=== PATIENT | female | born 1955 | race Caucasian/White ===

== ENCOUNTER → 2019-11-11 16:13 | Outpatient (CLI) | payer BC, SELFPAY ==
--- NOTE | ~2019-11-11 | MM_ITS ---
EXAMINATION: MM screening [facility] BI w debbie HISTORY: Screening mammogram TECHNIQUE: Craniocaudal and mediolateral oblique 3-D tomosynthesis images were obtained and synthetic 2-D images were generated. CAD analysis was submitted and interpreted. COMPARISON: No prior mammogram is available for comparison at this institution. BREAST PARENCHYMAL COMPOSITION: There are scattered areas of fibroglandular density. FINDINGS: There is no evidence of suspicious mass, calcification, or architectural distortion to sugg est malignancy in either breast. There has been no suspicious interval change. IMPRESSION: 1. No mammographic evidence of malignancy. 2. Recommend routine screening mammography in one year. BI-RADS Category 1: Negative Reviewed, dictated and finalized at location A. 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
== END ==
PROVIDERS: PCP Family Medicine
DX: Z12.31 Encounter for screening mammogram for malignant neoplasm of breast (principal)
CPT/HCPCS: 77063; 77067

== ENCOUNTER 2020-02-18 10:50 | Outpatient (CLI) | payer BC, SELFPAY ==
--- NOTE | ~2020-02-18 | CT_ITS ---
EXAMINATION:CT chest wo con DATE: 02/18/2020 11:51 INDICATION: Solitary pulmonary nodule. TECHNIQUE: Computed tomography (CT) of the chest was performed without intravenous contrast. Automate d exposure control and iterative reconstruction technique were employed. The dose-length product (DLP ) was 242.59 mGy-cm. COMPARISON: Chest CT 07/21/2019 FINDINGS: There is mild atelectasis bilaterally. There is mild emphysema. There are a few scattered 2 -3 mm nodules in the lungs. There is a 4 mm nodule in right middle lobe. No pleural effusion. The hea rt size is normal. There are coronary artery calcifications. There is a 4.2 cm fusiform aneurysm of a scending aorta. There is a moderate-sized sliding hiatal hernia. There are changes of anterior fusion procedure in cervical spine. There is levoscoliosis of upper thoracic spine and dextroscoliosis of l ower thoracic spine. There is severe thoracic spondylosis. IMPRESSION: 1. Stable small pulmonary nodules, consistent with granulomatous disease. 2. Mild emphysema. 3. Stable 4.2 cm fusiform aneurysm of ascending aorta. 4. Moderate-sized sliding hiatal hernia. Reviewed, dictated and finalized at location A.
== END 2020-02-18 10:51 | disposition home or self-care (01) ==
LOC: ANHIMG 10:51
PROVIDERS: PCP Family Medicine; Visit Provider Nurse Practitioner Family
DX: J43.9 Emphysema, unspecified (principal); K44.9 Diaphragmatic hernia without obstruction or gangrene; I71.4 Abdominal aortic aneurysm, without rupture; R91.8 Other nonspecific abnormal finding of lung field
CPT/HCPCS: 71250

== ENCOUNTER 2020-04-05 00:58 | Outpatient (CLI) | payer BC, SELFPAY ==
[2020-04-05 19:19] LABS: SARS-CoV-2 RNA PCR Negative
== END 2020-04-05 00:59 | disposition home or self-care (01) ==
LOC: ANHCOVIDDT 00:58
PROVIDERS: PCP Family Medicine; Visit Provider Internal Medicine Gastroenterology
DX: Z01.818 Encounter for other preprocedural examination (principal); Z11.59 Encounter for screening for other viral diseases
CPT/HCPCS: 87635; C9803; U0003

== ENCOUNTER 2020-04-07 02:19 | Day surgery (SDC) | payer BC, SELFPAY ==
[2020-03-28 13:48] VITALS: BMI 29.5
--- NOTE | 2020-04-07 07:47 | WPDANESEPPF ---
Anes - Initial Pre Proc Eval Procedure: Operation Date: 04/07/20 09:00 Proposed Procedures p Esophagogastroduodenoscopy - Juan Martinez MD Date/Time: 04/07/20 07:47 Surgeon: Juan Martinez MD Pre Op Diagnosis: Stricture Patient Data Age: 64 Gender: F Height: 1.68 m Weight: 83 kg Allergies Allergy/AdvReac Type Severity Reaction Status Date / Time gemifloxacin Allergy Severe unknown Verified 04/07/20 08:15 ciprofloxacin Allergy Unknown unknown Verified 04/07/20 08:15 doxycycline Allergy Unknown unknown Verified 04/07/20 08:15 fluticasone Allergy Unknown Tongue Verified 04/07/20 08:15 swelling glatiramer (copolymer 1) Allergy Unknown unknown Verified 04/07/20 08:15 omeprazole Allergy Unknown THROAT Verified 04/07/20 08:15 SWELLING, ARM PAIN penicillin G Allergy Unknown THROAT Verified 04/07/20 08:15 SWELLING Penicillins Allergy Unknown unknown Verified 04/07/20 08:15 Sulfa (Sulfonamide Allergy Unknown unknown Verified 04/07/20 08:15 Antibiotics) loratadine AdvReac Unknown RASH/ITCHING Verified 04/07/20 08:15 ON HEAD AFTER TAKING MULTIPLE DAYS Home Medications Medication Instructions Recorded Confirmed Type cholecalciferol (vitamin D3) 125 5,000 unit PO DAILY 08/03/19 04/07/20 History mcg (5,000 unit) tablet interferon beta-1a 30 mcg/0.5 mL 0.5 ml IM WEEKLY 08/03/19 03/28/20 History intramuscular pen kit vitamin B complex [B 1 tablet PO DAILY 03/28/20 03/28/20 History Complex-Vitamin B12] Patient hx anesthesia problems: none Family hx anesthesia problems: none PMFSH Past Medical History Medical History (Updated 04/07/20 @ 07:49 by Bg Goodrich MD) Aneurysm 4.2 cm fusiform aneurysm of ascending aorta Arthritis Emphysema of lung mild emphysema Essential (primary) hypertension Multiple sclerosis not affecting current episode of care (~2012) Obstructive sleep apnea (~1989) Surgical History Surgical History (Updated 08/03/19 @ 17:34 by Ml Meeks, ) History of mandibular surgery (~1989) Social History Social History (Updated 02/28/20 @ 08:41 by Lidya Lauren [facility]) Smoking packs per day: 1 Smoking cigarettes per day: 20.0 Years smoked: 48 Smoking pack-years: 48.00 Smoking status: Current every day smoker Tobacco type: cigarettes Smoking end date: 09/08/96 Alcohol intake: current Additional occupation/education comments: [employer] Final PreProcedure Day of Procedure 04/07/20 07:47 Patient weight: obese Heart: regular rate and rhythm Lungs: clear to auscultation and normal air movement Airway: Mallampati scale class II Neurological: alert and oriented Last oral intake: >/= 8 hours ASA classification: III Emergent: no Anesthetic plan: proceed Anesthesia type and monitoring: general GIVS Informed Consent: The patient's anesthetic plan and its attendant risks and benefits were discussed with the patient/family/POA. Questions were solicited and answers provided to the satisfaction of the patient/family/POA.
[2020-04-07 08:16] VITALS: BP 136/67; PULSE 74; RESP 18; TEMP 36.7; O2SAT 99
--- NOTE | 2020-04-07 08:28 | PM.HPGS ---
History of Present Illness History of Present Illness Consent: Risks, benefits, and alternatives have been discussed and questions answered. Patient agrees to proceed with procedure. Chief complaint: Stricture Narrative: Jamila Monzon is a 64 year old female with Funk's esophagus. She also has a history of an esophageal stricture PMFSH Past Medical History Medical History Aneurysm 4.2 cm fusiform aneurysm of ascending aorta Arthritis Emphysema of lung mild emphysema Essential (primary) hypertension Multiple sclerosis not affecting current episode of care (~2012) Obstructive sleep apnea (~1989) Surgical History Surgical History History of mandibular surgery (~1989) Family History Family History Mother Family history of anemia Hypertension Family history of glaucoma Father Family history of malignant neoplasm of kidney Patient's father is Social History Social History Smoking packs per day: 1 Smoking cigarettes per day: 20.0 Years smoked: 48 Smoking pack-years: 48.00 Smoking status: Current every day smoker Tobacco type: cigarettes Smoking end date: 09/08/96 Alcohol intake: current 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 Home Medications and Allergies Home Medications Medication Instructions Recorded Confirmed Type cholecalciferol (vitamin D3) 125 5,000 unit PO DAILY 08/03/19 04/07/20 History mcg (5,000 unit) tablet interferon beta-1a 30 mcg/0.5 mL 0.5 ml IM WEEKLY 08/03/19 03/28/20 History intramuscular pen kit vitamin B complex [B 1 tablet PO DAILY 03/28/20 03/28/20 History Complex-Vitamin B12] Allergies Allergy/AdvReac Type Severity Reaction Status Date / Time gemifloxacin Allergy Severe unknown Verified 04/07/20 08:15 ciprofloxacin Allergy Unknown unknown Verified 04/07/20 08:15 doxycycline Allergy Unknown unknown Verified 04/07/20 08:15 fluticasone Allergy Unknown Tongue Verified 04/07/20 08:15 swelling glatiramer (copolymer 1) Allergy Unknown unknown Verified 04/07/20 08:15 omeprazole Allergy Unknown THROAT Verified 04/07/20 08:15 SWELLING, ARM PAIN penicillin G Allergy Unknown THROAT Verified 04/07/20 08:15 SWELLING Penicillins Allergy Unknown unknown Verified 04/07/20 08:15 Sulfa (Sulfonamide Allergy Unknown unknown Verified 04/07/20 08:15 Antibiotics) loratadine AdvReac Unknown RASH/ITCHING Verified 04/07/20 08:15 ON HEAD AFTER TAKING MULTIPLE DAYS Vital Signs Vital Signs - 24 hr 04/07/20 08:16 Temperature 36.7 C Pulse Rate 74 Respiratory Rate 18 Blood Pressure 136/67 Pulse Oximetry 99 Exam Const: General: alert Orientation/consciousness: patient oriented x3 Resp: Auscultation: clear to auscultation bilaterally Cardio: Rhythm: regular rhythm GI: GI Palp: Yes Soft to palpation and No Tenderness to palpation present (GI) Neuro: General: patient oriented x3 Assessment and Plan Assessment and plan (1) Funk's esophagus: Code(s): K22.70 - Funk's esophagus without dysplasia Status: Acute Assessment and Plan: EGD with possible biopsy or dilatation or cautery.
[2020-04-07] MEDS: LACTATED RINGERS 1,000 ML 150 ML IV CONT (08:30)
[2020-04-07 09:08] VITALS: BP 90/49; PULSE 72; RESP 14; O2SAT 98
[2020-04-07 09:18] VITALS: BP 88/50; PULSE 73; RESP 16; O2SAT 98
[2020-04-07 09:24] VITALS: BP 117/77; PULSE 72; RESP 18; O2SAT 98
== END 2020-04-07 09:44 | disposition home or self-care (01) ==
PROVIDERS: PCP Family Medicine; Visit Provider Internal Medicine Gastroenterology
PROC: 0DJ08ZZ Inspection of Upper Intestinal Tract, Via Natural or Artificial Opening Endoscopic (ICD-10-PCS; CPT 43235; principal; 2020-04-07 09:00)
DX: K22.70 Barrett's esophagus without dysplasia (principal); K22.2 Esophageal obstruction; K20.9 Esophagitis, unspecified; K44.9 Diaphragmatic hernia without obstruction or gangrene; I10 Essential (primary) hypertension; I71.4 Abdominal aortic aneurysm, without rupture; G35 Multiple sclerosis; G47.33 Obstructive sleep apnea (adult) (pediatric); J43.9 Emphysema, unspecified; F17.210 Nicotine dependence, cigarettes, uncomplicated; E66.9 Obesity, unspecified; Z68.30 Body mass index [BMI] 30.0-30.9, adult
CPT/HCPCS: 43249; 88305; C1726; J2704; J7120

== ENCOUNTER 2020-04-13 15:52 | Outpatient (CLI) | payer BC, SELFPAY ==
[2020-04-13 16:31] LABS: Basophils Absolute Auto 0.1 K/mm3 (0.0-0.1); Basophils Percent Auto 0.8 % (0.2-1.2); Eosinophils Absolute Auto 0.3 K/mm3 (0-0.3); Eosinophils Percent Auto 2.8 % (0-4.4); Hematocrit 41.8 % (37.0-47.0); Hemoglobin 13.7 g/dL (12.0-15.0); Immature Granulocyte Absolute 0.02 K/mm3 (0.00-0.031); Immature Granulocyte Percent A 0.2 % (0-0.5); Lymphocytes Absolute Auto 3.79 K/mm3 (0.9-3.2); Lymphocytes Percent Auto 41.5 % (18.3-44.2); Mean Corpuscular HGB Conc 32.8 g/dl (32-36); Mean Corpuscular Hemoglobin 29.3 pg (26-34); Mean Corpuscular Volume 89.3 fl (80-100); Mean Platelet Volume 9.4 fl (7.4-10.4); Monocytes Percent Auto 11.3 % (2.6-8.5); Neutrophils Percent Auto 43.4 % (45.5-73.1); Platelet Count Result 396 k/mm3 (150-375); Red Blood Count 4.68 M/mm3 (4.2-5.4); Red Cell Distribution Width 13.5 % (11.5-14.5); White Blood Count 9.1 K/mm3 (4.5-10.0)
[2020-04-13 16:44] LABS: Alanine Aminotransferase 21 U/L (4-35); Albumin Level 4.3 g/dL (3.5-5.1); Alkaline Phosphatase 68 U/L (38-126); Anion Gap 12.1 mmol/L (7-16); Aspartate Amino Transferase 24 U/L (14-36); Bilirubin,Total 0.1 mg/dL (0.2-1.3); Blood Urea Nitrogen 11 mg/dL (7-17); Calcium 9.5 mg/dL (8.4-10.2); Carbon Dioxide 28 mmol/L (22-30); Chloride 102 mmol/L (98-107); Estimated Glomerular Filt Rate > 60; Glucose 96 mg/dL (65-105); Potassium 4.1 mmol/L (3.4-5.0); Sodium 138 mmol/L (137-145)
== END 2020-04-13 15:53 | disposition home or self-care (01) ==
PROVIDERS: PCP Family Medicine
DX: G35 Multiple sclerosis (principal)
CPT/HCPCS: 36415; 80053; 85025

== ENCOUNTER 2020-07-22 10:33 | Outpatient (CLI) | payer BC, SELFPAY ==
[2020-07-22 11:04] LABS: Alanine Aminotransferase 22 U/L (4-35); Albumin Level 4.3 g/dL (3.5-5.1); Alkaline Phosphatase 64 U/L (38-126); Anion Gap 7 mmol/L (8-16); Aspartate Amino Transferase 26 U/L (14-36); Bilirubin,Total 0.4 mg/dL (0.2-1.3); Blood Urea Nitrogen 12 mg/dL (7-17); Calcium 9.5 mg/dL (8.4-10.2); Carbon Dioxide 26 mmol/L (22-30); Chloride 104 mmol/L (98-107); Cholesterol 214 mg/dL (0-200); Estimated Glomerular Filt Rate > 60; Glucose 93 mg/dL (65-105); HDL Direct 52 mg/dL; Potassium 4.2 mmol/L (3.4-5.0); Sodium 137 mmol/L (137-145); Triglycerides 135 mg/dL (<150)
[2020-07-22 11:15] LABS: LDL Cholesterol Direct 130 mg/dL
[2020-07-22 11:59] LABS: Thyroid Stimulating Hormone Reflex 0.677 uIU/mL (0.465-4.68)
== END 2020-07-22 10:34 | disposition home or self-care (01) ==
LOC: ANHLAB 10:35
PROVIDERS: PCP Family Medicine; Visit Provider Family Medicine
DX: E78.5 Hyperlipidemia, unspecified (principal); Z00.00 Encounter for general adult medical examination without abnormal findings
CPT/HCPCS: 36415; 80053; 80061; 84443

== ENCOUNTER → 2020-12-04 07:29 | Outpatient (CLI) | payer BC, SELFPAY ==
--- NOTE | ~2020-12-04 | MM_ITS ---
EXAMINATION: MM screening [facility] BI w debbie HISTORY: Screening mammogram TECHNIQUE: Craniocaudal and mediolateral oblique 3-D tomosynthesis images were obtained and synthetic 2-D images were generated. CAD analysis was submitted and interpreted. COMPARISON: 11/11/2019, 10/12/2018, 09/29/2017 BREAST PARENCHYMAL COMPOSITION: There are scattered areas of fibroglandular density. FINDINGS: There is no evidence of suspicious mass, calcification, or architectural distortion to sugg est malignancy in either breast. There has been no suspicious interval change. IMPRESSION: 1. No mammographic evidence of malignancy. 2. Recommend routine screening mammography in one year. BI-RADS Category 1: Negative Reviewed, dictated and finalized at location A.
== END ==
PROVIDERS: PCP Family Medicine; Visit Provider Obstetrics & Gynecology
DX: Z12.31 Encounter for screening mammogram for malignant neoplasm of breast (principal)
CPT/HCPCS: 77063; 77067

== ENCOUNTER 2021-02-19 11:01 | Outpatient (CLI) | payer BC, SELFPAY ==
--- NOTE | ~2021-02-19 | US_ITS ---
EXAMINATION:US venous doppler LE RT INDICATION:Right lower leg edema TECHNIQUE: Multiple grayscale, color flow and Doppler images of the right lower extremity deep venous systems were obtained and reviewed. COMPARISON:No prior studies for comparison. FINDINGS: The common femoral, superficial femoral and popliteal veins demonstrate normal respiratory variation, augmentation and compressibility. Color flow is also seen within the posterior tibial, pe roneal, greater saphenous and profunda veins. IMPRESSION: 1: No lower extremity deep venous thrombosis. Reviewed, dictated and finalized at location A.
== END 2021-02-19 11:02 | disposition home or self-care (01) ==
LOC: ANHIMG 11:07
PROVIDERS: PCP Family Medicine
DX: M60.861 Other myositis, right lower leg (principal); R60.0 Localized edema; M79.661 Pain in right lower leg
CPT/HCPCS: 93971

== ENCOUNTER 2021-05-04 10:07 | Outpatient (CLI) | payer BC, SELFPAY ==
--- NOTE | 2021-05-04 16:21 | WPDPFTINT ---
PFT Procedure Performed PFT Procedure Performed Spirometry with Pre/Post Bronchodilator Plethysmography (Lung Vol) Diffusing Cap (DLCO) Flow Vol Loop PFT Interpretation This is a pulmonary function test with pre and post-bronchodilator spirometry, plethysmography and diffusing capacity. The test was performed and results interpreted in accordance with the 2019 and 2005 ATS/ERS Task Force guidelines respectively using the Global Lung Function Initiative-2012 reference equations. Patient demonstrated good effort and cooperation. Reproducibility criteria were met. The quality of the pre bronchodilator spirometry maneuver was Grade A and post bronchodilator spirometry maneuver was Grade A. Findings: Spirometry: There is decreased maximal expiratory airflow at all lung volumes concave expiratory flow tracing. The pre bronchodilator FVC is 2.77 L, 85% predicted. The pre bronchodilator FEV1 is 1.71 L, 67% predicted. The FEV1: FVC ratio 62%. The post bronchodilator FVC is 2.66 L, representing a 4% decrease. The post bronchodilator FEV1 is 1.74 L, representing a 2% increase. Plethysmography: The total lung capacity is 5.57 L, 104% predicted. The functional residual capacity is 3.30 L, 108% predicted. The residual volume is 2.79 L, 128% predicted. Diffusing capacity: The absolute diffusion capacity is 18.6, 85% predicted. The diffusing capacity corrected for alveolar volume is 4.17, 97% predicted. Impression: There is a moderate obstructive abnormality without significant improvement after inhaling a single dose of albuterol. The lung volumes are normal. The diffusing capacity is normal. There are no prior studies for comparison
== END 2021-05-04 10:08 | disposition home or self-care (01) ==
PROVIDERS: PCP Family Medicine; Visit Provider Nurse Practitioner Family
DX: R06.02 Shortness of breath (principal); R94.2 Abnormal results of pulmonary function studies
CPT/HCPCS: 94060; 94726; 94729

== ENCOUNTER → 2021-06-15 03:12 | Outpatient (CLI) | payer BC, SELFPAY ==
[2021-06-15 17:41] LABS: SARS-CoV-2 RNA PCR Negative
== END ==
PROVIDERS: PCP Family Medicine; Visit Provider Internal Medicine Gastroenterology
DX: Z01.812 Encounter for preprocedural laboratory examination (principal); Z20.822 Contact with and (suspected) exposure to COVID-19
CPT/HCPCS: C9803; U0003; U0005

== ENCOUNTER 2021-06-18 01:22 | Day surgery (SDC) | payer BC, SELFPAY ==
[2021-06-11 10:49] VITALS: BMI 28.7
--- NOTE | 2021-06-18 11:32 | PM.HPGS ---
History of Present Illness History of Present Illness Consent: Risks, benefits, and alternatives have been discussed and questions answered. Patient agrees to proceed with procedure. Chief complaint: neoplasm screening Narrative: Jamila Monzon is a 65 year old female referred for colon cancer screening Review of Systems Review of Systems: All systems reviewed & are unremarkable except as noted in HPI and below PMFSH Past Medical History Medical History Aneurysm 4.2 cm fusiform aneurysm of ascending aorta Arthritis Dyslipidemia Emphysema of lung mild emphysema Environmental allergies History of esophageal stricture Multiple sclerosis not affecting current episode of care (~2012) Obstructive sleep apnea (~1989) Vertigo Surgical History Surgical History History of carpal tunnel surgery History of cervical spinal surgery C4,5,6 fusion History of esophageal dilatation 04/27 History of mandibular surgery (~1989) Family History Family History Mother Family history of anemia Hypertension Family history of glaucoma Father Family history of malignant neoplasm of kidney Patient's father is Social History Social History Smoking packs per day: 1 Smoking cigarettes per day: 20.0 Years smoked: 22 Smoking pack-years: 22.00 Smoking status: Former smoker Tobacco type: cigarettes Smoking end date: 09/08/96 Alcohol intake: current Alcohol use details: Very little to none Substance use: never Substance use type: does not use Living arrangements: with family Additional living arrangements comments: lives with spouse Additional occupation/education comments: [employer] Gender identity (if verbalized by the patient): Female Spiritual care concerns: No Meds Home Medications and Allergies Home Medications Medication Instructions Recorded Confirmed Type cholecalciferol (vitamin D3) 125 5,000 unit PO DAILY 08/03/19 06/11/21 History mcg (5,000 unit) tablet interferon beta-1a 30 mcg/0.5 mL 0.5 ml IM WEEKLY 08/03/19 02/25/21 History intramuscular pen kit zinc 50 mg tablet 50 mg PO DAILY 07/19/20 06/11/21 History ascorbate calcium (vitamin C) 500 500 mg PO DAILY 11/23/20 06/11/21 History mg tablet coenzyme Q10 [H2Q CoQ10] PO 11/23/20 02/25/21 History magnesium-potassium 40 mg-40 mg 40 cap PO DAILY 11/23/20 06/11/21 History capsule multivitamin 1 tablet PO DAILY 11/23/20 06/11/21 History vitamin E acetate PO 11/23/20 02/25/21 History loratadine 10 mg tablet 10 mg PO DAILY 02/15/21 06/11/21 History metoprolol succinate 25 mg 25 mg PO DAILY 02/15/21 06/11/21 History tablet,extended release 24 hr rosuvastatin 10 mg tablet 10 mg PO DAILY #30 tablet 03/20/21 06/11/21 Rx Allergies Allergy/AdvReac Type Severity Reaction Status Date / Time gemifloxacin Allergy Severe unknown Verified 06/18/21 11:58 ciprofloxacin Allergy Unknown unknown Verified 06/18/21 11:58 doxycycline Allergy Unknown unknown Verified 06/18/21 11:58 fluticasone Allergy Unknown Tongue Verified 06/18/21 11:58 swelling glatiramer (copolymer 1) Allergy Unknown unknown Verified 06/18/21 11:58 omeprazole Allergy Unknown THROAT Verified 06/18/21 11:58 SWELLING, ARM PAIN penicillin G Allergy Unknown THROAT Verified 06/18/21 11:58 SWELLING Penicillins Allergy Unknown unknown Verified 06/18/21 11:58 Sulfa (Sulfonamide Allergy Unknown unknown Verified 06/18/21 11:58 Antibiotics) loratadine AdvReac Unknown RASH/ITCHING Verified 06/18/21 11:58 ON HEAD AFTER TAKING MULTIPLE DAYS azelastine AdvReac throat Verified 06/18/21 11:58 swell Exam Resp: Auscultation: clear to auscultation bilaterally Cardio: Rate: regular ra
[2021-06-18 11:59] VITALS: BP 118/69; PULSE 81; RESP 18; TEMP 36.7; O2SAT 98
[2021-06-18] MEDS: LACTATED RINGERS 1,000 ML 150 ML IV CONT (12:07)
--- NOTE | 2021-06-18 12:37 | WPDANESEPPF ---
Anes - Initial Pre Proc Eval Procedure: Operation Date: 06/18/21 13:15 Proposed Procedures p Screening Colonoscopy - Juan Martinez MD Date/Time: 06/18/21 12:37 Surgeon: Juan Martinez MD Pre Op Diagnosis: neoplasm screening Patient Data Age: 65 Gender: F Height: 1.69 m Weight: 83.4 kg Last Vital Signs Temp 36.7 C 06/18/21 11:59 Pulse 81 06/18/21 11:59 Resp 18 06/18/21 11:59 BP 118/69 06/18/21 11:59 Pulse Ox 98 06/18/21 11:59 Allergies Allergy/AdvReac Type Severity Reaction Status Date / Time gemifloxacin Allergy Severe unknown Verified 06/18/21 11:58 ciprofloxacin Allergy Unknown unknown Verified 06/18/21 11:58 doxycycline Allergy Unknown unknown Verified 06/18/21 11:58 fluticasone Allergy Unknown Tongue Verified 06/18/21 11:58 swelling glatiramer (copolymer 1) Allergy Unknown unknown Verified 06/18/21 11:58 omeprazole Allergy Unknown THROAT Verified 06/18/21 11:58 SWELLING, ARM PAIN penicillin G Allergy Unknown THROAT Verified 06/18/21 11:58 SWELLING Penicillins Allergy Unknown unknown Verified 06/18/21 11:58 Sulfa (Sulfonamide Allergy Unknown unknown Verified 06/18/21 11:58 Antibiotics) loratadine AdvReac Unknown RASH/ITCHING Verified 06/18/21 11:58 ON HEAD AFTER TAKING MULTIPLE DAYS azelastine AdvReac throat Verified 06/18/21 11:58 swell Home Medications Medication Instructions Recorded Confirmed Type cholecalciferol (vitamin D3) 125 5,000 unit PO DAILY 08/03/19 06/11/21 History mcg (5,000 unit) tablet interferon beta-1a 30 mcg/0.5 mL 0.5 ml IM WEEKLY 08/03/19 06/18/21 History intramuscular pen kit zinc 50 mg tablet 50 mg PO DAILY 07/19/20 06/11/21 History ascorbate calcium (vitamin C) 500 500 mg PO DAILY 11/23/20 06/11/21 History mg tablet coenzyme Q10 [H2Q CoQ10] 1 tab-cap PO DAILY 11/23/20 06/18/21 History magnesium-potassium 40 mg-40 mg 40 cap PO DAILY 11/23/20 06/11/21 History capsule multivitamin 1 tablet PO DAILY 11/23/20 06/11/21 History vitamin E acetate PO 11/23/20 02/25/21 History loratadine 10 mg tablet 10 mg PO DAILY 02/15/21 06/11/21 History metoprolol succinate 25 mg 25 mg PO DAILY 02/15/21 06/11/21 History tablet,extended release 24 hr rosuvastatin 10 mg tablet 10 mg PO DAILY #30 tablet 03/20/21 06/11/21 Rx Patient hx anesthesia problems: none Family hx anesthesia problems: none Results Review: All pre-operative results and documents have been reviewed as part of the pre-operative evaluation. [facility] Past Medical History Medical History Aneurysm 4.2 cm fusiform aneurysm of ascending aorta Arthritis Dyslipidemia Emphysema of lung mild emphysema Environmental allergies History of esophageal stricture Multiple sclerosis not affecting current episode of care (~2012) Obstructive sleep apnea (~1989) Vertigo Surgical History Surgical History History of carpal tunnel surgery History of cervical spinal surgery C4,5,6 fusion History of esophageal dilatation 04/27 History of mandibular surgery (~1989) Family History Family History Mother Family history of anemia Hypertension Family history of glaucoma Father Family history of malignant neoplasm of kidney Patient's father is Social History Social History Smoking packs per day: 1 Smoking cigarettes per day: 20.0 Years smoked: 22 Smoking pack-years: 22.00 Smoking status: Former smoker Tobacco type: cigarettes Smoking end date: 09/08/96 Alcohol intake: current Alcohol use details: Very little to none Substance use: never Substance use type: does not use Living arrangements: with family Additional living arrangements comments: lives with spouse Jimo
[2021-06-18 13:09] VITALS: BP 99/63; PULSE 73; RESP 21; O2SAT 97
[2021-06-18 13:19] VITALS: BP 103/69; PULSE 70; RESP 20; O2SAT 96
[2021-06-18 13:29] VITALS: BP 131/85; PULSE 74; RESP 22; O2SAT 99
== END 2021-06-18 13:45 | disposition home or self-care (01) ==
PROVIDERS: PCP Family Medicine; Visit Provider Internal Medicine Gastroenterology
PROC: 0DJD8ZZ Inspection of Lower Intestinal Tract, Via Natural or Artificial Opening Endoscopic (ICD-10-PCS; CPT 45378; principal; 2021-06-18 13:15)
DX: Z12.11 Encounter for screening for malignant neoplasm of colon (principal); K62.89 Other specified diseases of anus and rectum; K51.30 Ulcerative (chronic) rectosigmoiditis without complications; K57.32 Diverticulitis of large intestine without perforation or abscess without bleeding; K51.214 Ulcerative (chronic) proctitis with abscess; K63.5 Polyp of colon; I71.2 Thoracic aortic aneurysm, without rupture; M19.90 Unspecified osteoarthritis, unspecified site; E78.5 Hyperlipidemia, unspecified; J43.9 Emphysema, unspecified; G35 Multiple sclerosis; G47.33 Obstructive sleep apnea (adult) (pediatric); Z87.891 Personal history of nicotine dependence
CPT/HCPCS: 45380; 45385; 88305; J2001; J2704; J7120

== ENCOUNTER → 2021-07-09 02:31 | Outpatient (CLI) | payer BC, SELFPAY ==
[2021-07-09 16:20] LABS: SARS-CoV-2 RNA PCR Negative
== END ==
PROVIDERS: PCP Family Medicine; Visit Provider Internal Medicine Gastroenterology
DX: Z01.812 Encounter for preprocedural laboratory examination (principal); Z20.822 Contact with and (suspected) exposure to COVID-19
CPT/HCPCS: C9803; U0003; U0005

== ENCOUNTER 2021-07-12 01:18 | Day surgery (SDC) | payer BC, SELFPAY ==
[2021-06-27 13:57] VITALS: BMI 29.1
--- NOTE | 2021-07-11 13:04 | PM.HPGS ---
History of Present Illness History of Present Illness Consent: Risks, benefits, and alternatives have been discussed and questions answered. Patient agrees to proceed with procedure. Chief complaint: esophageal stricture Narrative: Jamila Monzon is a 65 year old female with chronic acid reflux disease who has a known esophageal stricture. This was last dilated a little more than 1 year ago. Few years ago biopsies had revealed changes of Funk's esophagus that were not seen last year. She was able to be dilated up to 19 mm in March 2020. She is now having some difficulty with swallowing again again. Food, particularly meat, will get stuck jail down and she will need to stop eating or drink some liquids to facilitate the swallowing. Review of Systems Review of Systems: All systems reviewed & are unremarkable except as noted in HPI and below PMFSH Past Medical History Medical History Aneurysm 4.2 cm fusiform aneurysm of ascending aorta Arthritis Dyslipidemia Emphysema of lung mild emphysema Environmental allergies History of esophageal stricture Multiple sclerosis not affecting current episode of care (~2012) Obstructive sleep apnea (~1989) Vertigo Surgical History Surgical History History of carpal tunnel surgery History of cervical spinal surgery C4,5,6 fusion History of esophageal dilatation 04/27 History of mandibular surgery (~1989) Family History Family History Mother Family history of anemia Hypertension Family history of glaucoma Father Family history of malignant neoplasm of kidney Patient's father is Social History Social History Smoking packs per day: 1 Smoking cigarettes per day: 20.0 Years smoked: 22 Smoking pack-years: 22.00 Smoking status: Never smoker Tobacco type: cigarettes Smoking end date: 09/08/96 Alcohol intake: current Drinks per week: 1 Alcohol use details: Very little to none Substance use: never Substance use type: does not use Living arrangements: with family Additional living arrangements comments: lives with spouse Additional occupation/education comments: [employer] Gender identity (if verbalized by the patient): Female Spiritual care concerns: No Meds Home Medications and Allergies Home Medications Medication Instructions Recorded Confirmed Type cholecalciferol (vitamin D3) 125 5,000 unit PO DAILY 08/03/19 06/27/21 History mcg (5,000 unit) tablet interferon beta-1a 30 mcg/0.5 mL 0.5 ml IM WEEKLY 08/03/19 06/27/21 History intramuscular pen kit zinc 50 mg tablet 50 mg PO DAILY 07/19/20 06/27/21 History ascorbate calcium (vitamin C) 500 500 mg PO DAILY 11/23/20 06/27/21 History mg tablet coenzyme Q10 [H2Q CoQ10] 1 tab-cap PO DAILY 11/23/20 06/27/21 History magnesium-potassium 40 mg-40 mg 40 cap PO DAILY 11/23/20 06/11/21 History capsule multivitamin 1 tablet PO DAILY 11/23/20 06/27/21 History vitamin E acetate 1 tab-cap PO DAILY 11/23/20 06/27/21 History loratadine 10 mg tablet 10 mg PO DAILY 02/15/21 06/27/21 History metoprolol succinate 25 mg 25 mg PO DAILY 02/15/21 06/27/21 History tablet,extended release 24 hr rosuvastatin 10 mg tablet 10 mg PO DAILY #30 tablet 03/20/21 06/27/21 Rx Allergies Allergy/AdvReac Type Severity Reaction Status Date / Time gemifloxacin Allergy Severe unknown Verified 07/12/21 06:32 ciprofloxacin Allergy Unknown unknown Verified 07/12/21 06:32 doxycycline Allergy Unknown unknown Verified 07/12/21 06:32 fluticasone Allergy Unknown Tongue Verified 07/12/21 06:32 swelling glatiramer (copolymer 1) Allergy Unknown unknown Verified 07/12/21 06:32 omeprazole Allergy Unknown THROAT Verified 07/12/21 06:32 SWELLING, ARM PAIN penicilli
[2021-07-12 06:34] VITALS: BP 110/70; PULSE 77; RESP 18; TEMP 36.9; O2SAT 96
[2021-07-12] MEDS: LACTATED RINGERS 1,000 ML 150 ML IV CONT (06:43)
--- NOTE | 2021-07-12 07:10 | WPDANESEPPF ---
Anes - Initial Pre Proc Eval Procedure: Operation Date: 07/12/21 07:30 Proposed Procedures p Esophagogastroduodenoscopy - Juan Martinez MD Date/Time: 07/12/21 07:10 Surgeon: Juan Martinez MD Pre Op Diagnosis: esophageal stricture Patient Data Age: 65 Gender: F Height: 1.68 m Weight: 85.8 kg Last Vital Signs Temp 36.9 C 07/12/21 06:34 Pulse 77 07/12/21 06:34 Resp 18 07/12/21 06:34 BP 110/70 07/12/21 06:34 Pulse Ox 96 07/12/21 06:34 Allergies Allergy/AdvReac Type Severity Reaction Status Date / Time gemifloxacin Allergy Severe unknown Verified 07/12/21 06:32 ciprofloxacin Allergy Unknown unknown Verified 07/12/21 06:32 doxycycline Allergy Unknown unknown Verified 07/12/21 06:32 fluticasone Allergy Unknown Tongue Verified 07/12/21 06:32 swelling glatiramer (copolymer 1) Allergy Unknown unknown Verified 07/12/21 06:32 omeprazole Allergy Unknown THROAT Verified 07/12/21 06:32 SWELLING, ARM PAIN penicillin G Allergy Unknown THROAT Verified 07/12/21 06:32 SWELLING Penicillins Allergy Unknown unknown Verified 07/12/21 06:32 Sulfa (Sulfonamide Allergy Unknown unknown Verified 07/12/21 06:32 Antibiotics) loratadine AdvReac Unknown RASH/ITCHING Verified 07/12/21 06:32 ON HEAD AFTER TAKING MULTIPLE DAYS azelastine AdvReac throat Verified 07/12/21 06:32 swell Home Medications Medication Instructions Recorded Confirmed Type cholecalciferol (vitamin D3) 125 5,000 unit PO DAILY 08/03/19 06/27/21 History mcg (5,000 unit) tablet interferon beta-1a 30 mcg/0.5 mL 0.5 ml IM WEEKLY 08/03/19 06/27/21 History intramuscular pen kit zinc 50 mg tablet 50 mg PO DAILY 07/19/20 06/27/21 History ascorbate calcium (vitamin C) 500 500 mg PO DAILY 11/23/20 06/27/21 History mg tablet coenzyme Q10 [H2Q CoQ10] 1 tab-cap PO DAILY 11/23/20 06/27/21 History magnesium-potassium 40 mg-40 mg 40 cap PO DAILY 11/23/20 06/11/21 History capsule multivitamin 1 tablet PO DAILY 11/23/20 06/27/21 History vitamin E acetate 1 tab-cap PO DAILY 11/23/20 06/27/21 History loratadine 10 mg tablet 10 mg PO DAILY 02/15/21 06/27/21 History metoprolol succinate 25 mg 25 mg PO DAILY 02/15/21 06/27/21 History tablet,extended release 24 hr rosuvastatin 10 mg tablet 10 mg PO DAILY #30 tablet 03/20/21 06/27/21 Rx Patient hx anesthesia problems: none Family hx anesthesia problems: none Results Review: All pre-operative results and documents have been reviewed as part of the pre-operative evaluation. [facility] Past Medical History Medical History Aneurysm 4.2 cm fusiform aneurysm of ascending aorta Arthritis Dyslipidemia Emphysema of lung mild emphysema Environmental allergies History of esophageal stricture Multiple sclerosis not affecting current episode of care (~2012) Obstructive sleep apnea (~1989) Vertigo Surgical History Surgical History History of carpal tunnel surgery History of cervical spinal surgery C4,5,6 fusion History of esophageal dilatation 04/27 History of mandibular surgery (~1989) Family History Family History Mother Family history of anemia Hypertension Family history of glaucoma Father Family history of malignant neoplasm of kidney Patient's father is Social History Social History Smoking packs per day: 1 Smoking cigarettes per day: 20.0 Years smoked: 22 Smoking pack-years: 22.00 Smoking status: Never smoker Tobacco type: cigarettes Smoking end date: 09/08/96 Alcohol intake: current Drinks per week: 1 Alcohol use details: Very little to none Substance use: never Substance use type: does not use Living arrangements: with family Additional living arrangemen
[2021-07-12 07:41] VITALS: BP 103/64; PULSE 70; RESP 26; O2SAT 96
[2021-07-12 07:51] VITALS: BP 112/73; PULSE 70; RESP 21; O2SAT 97
[2021-07-12 08:01] VITALS: BP 109/73; PULSE 68; RESP 20; O2SAT 97
== END 2021-07-12 08:10 | disposition home or self-care (01) ==
PROVIDERS: PCP Family Medicine; Visit Provider Internal Medicine Gastroenterology
PROC: 0DJ08ZZ Inspection of Upper Intestinal Tract, Via Natural or Artificial Opening Endoscopic (ICD-10-PCS; CPT 43235; principal; 2021-07-12 07:30)
DX: K22.2 Esophageal obstruction (principal); K21.9 Gastro-esophageal reflux disease without esophagitis; I71.4 Abdominal aortic aneurysm, without rupture; E78.5 Hyperlipidemia, unspecified; J43.9 Emphysema, unspecified; G35 Multiple sclerosis; G47.33 Obstructive sleep apnea (adult) (pediatric); Z98.1 Arthrodesis status; Z87.891 Personal history of nicotine dependence
CPT/HCPCS: 43249; 88305; C1726; J2704; J7120

== ENCOUNTER 2021-08-27 17:23 | Outpatient (CLI) | payer BC, SELFPAY ==
[2021-08-27 18:08] LABS: Alanine Aminotransferase 22 U/L (4-35); Aspartate Amino Transferase 39 U/L (14-36)
== END 2021-08-27 17:24 | disposition home or self-care (01) ==
LOC: ANHLAB 17:26
PROVIDERS: PCP Family Medicine; Visit Provider Podiatrist Foot & Ankle Surgery
DX: B35.1 Tinea unguium (principal)
CPT/HCPCS: 36415; 84450; 84460

== ENCOUNTER 2021-09-18 11:50 | Outpatient (CLI) | payer BC, SELFPAY ==
[2021-09-18 12:13] LABS: Basophils Absolute Auto 0.1 K/mm3 (0.0-0.1); Basophils Percent Auto 0.7 % (0.2-1.2); Eosinophils Absolute Auto 0.7 K/mm3 (0-0.3); Eosinophils Percent Auto 7.5 % (0-4.4); Hemoglobin 13.9 g/dL (12.0-15.0); Immature Granulocyte Absolute 0.04 K/mm3 (0.00-0.031); Immature Granulocyte Percent A 0.4 % (0-0.5); Lymphocytes Absolute Auto 3.08 K/mm3 (0.9-3.2); Lymphocytes Percent Auto 31.9 % (18.3-44.2); Mean Corpuscular HGB Conc 33.1 g/dl (32-36); Mean Corpuscular Hemoglobin 30.2 pg (26-34); Mean Corpuscular Volume 91.3 fl (80-100); Mean Platelet Volume 9.2 fl (7.4-10.4); Monocytes Percent Auto 10.2 % (2.6-8.5); Neutrophils Absolute Auto 4.8 K/mm3 (1.3-6.7); Neutrophils Percent Auto 49.3 % (45.5-73.1); Platelet Count Result 350 k/mm3 (150-375); Red Cell Distribution Width 13.2 % (11.5-14.5); White Blood Count 9.7 K/mm3 (4.5-10.0)
[2021-09-18 12:29] LABS: Alanine Aminotransferase 22 U/L (4-35); Albumin Level 4.4 g/dL (3.5-5.1); Alkaline Phosphatase 79 U/L (38-126); Anion Gap 12 mmol/L (8-16); Aspartate Amino Transferase 25 U/L (14-36); Bilirubin,Total 0.5 mg/dL (0.2-1.3); Blood Urea Nitrogen 14 mg/dL (7-17); Calcium 9.9 mg/dL (8.4-10.2); Carbon Dioxide 22 mmol/L (22-30); Chloride 101 mmol/L (98-107); Cholesterol 249 mg/dL (0-200); Estimated Glomerular Filt Rate > 60; Glucose 101 mg/dL (65-110); HDL Direct 49 mg/dL; Potassium 4.3 mmol/L (3.4-5.0); Sodium 135 mmol/L (137-145); Triglycerides 128 mg/dL (<150)
[2021-09-18 12:40] LABS: LDL Cholesterol Direct 144 mg/dL
[2021-09-18 13:26] LABS: Vitamin D 25 Hydroxy 66.9 ng/mL
== END 2021-09-18 11:51 | disposition home or self-care (01) ==
PROVIDERS: PCP Family Medicine; Visit Provider Family Medicine
DX: Z00.00 Encounter for general adult medical examination without abnormal findings (principal); I10 Essential (primary) hypertension; E55.9 Vitamin D deficiency, unspecified; E78.5 Hyperlipidemia, unspecified
CPT/HCPCS: 36415; 80053; 80061; 82306; 84443; 85025

== ENCOUNTER 2021-11-06 10:51 | Outpatient (CLI) | payer BC, SELFPAY ==
[2021-11-06 11:31] LABS: Alanine Aminotransferase 19 U/L (4-35); Aspartate Amino Transferase 30 U/L (14-36)
== END 2021-11-06 10:52 | disposition home or self-care (01) ==
LOC: ANHLAB 10:53
PROVIDERS: PCP Family Medicine; Visit Provider Podiatrist Foot & Ankle Surgery
DX: B35.1 Tinea unguium (principal)
CPT/HCPCS: 36415; 84450; 84460

== ENCOUNTER 2021-12-31 13:34 | Outpatient (CLI) | payer MEDICARE, SELFPAY ==
--- NOTE | ~2021-12-31 | CT_ITS ---
EXAMINATION: CT diagnostic chest wo con DATE: 12/31/2021 14:03 INDICATION: Thoracic aortic ectasia TECHNIQUE: Computed tomography (CT) of the chest was performed without intravenous contrast. The dose -length product (DLP) was 318.88 mGy-cm. 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 COMPARISON: 02/18/2020 FINDINGS: There is a stable 4.2 cm fusiform aneurysm of the ascending aorta measured at the level of the main pulmonary artery. There is stable 4 mm nodule in the right middle lobe. Also seen are stable 2 to 3 mm nodules scattered throughout the lungs. The lungs are free of focal airspace opacities. Th ere is mild atelectasis. There is no pleural effusion or pneumothorax. No pathologically enlarged tho racic lymph nodes are identified. The heart size is normal. Calcified coronary artery atherosclerosis is noted. There is severe thoracic spondylosis. IMPRESSION: 1. Stable 4.2 cm fusiform aneurysm of the ascending aorta. Reviewed, dictated and finalized at location F.
== END 2021-12-31 13:35 | disposition home or self-care (01) ==
PROVIDERS: PCP Family Medicine; Visit Provider Internal Medicine Cardiovascular Disease
DX: I77.810 Thoracic aortic ectasia (principal)
CPT/HCPCS: 71250

== ENCOUNTER 2022-02-18 09:08 | Outpatient (CLI) | payer MEDICARE, SELFPAY ==
[2022-02-18 09:59] LABS: Alanine Aminotransferase 17 U/L (6-35); Aspartate Amino Transferase 38 U/L (14-36)
== END 2022-02-18 09:09 | disposition home or self-care (01) ==
PROVIDERS: PCP Family Medicine; Visit Provider Podiatrist Foot & Ankle Surgery
DX: B35.1 Tinea unguium (principal)
CPT/HCPCS: 36415; 84450; 84460

== ENCOUNTER → 2022-03-26 13:54 | Outpatient (CLI) | payer MEDICARE, SELFPAY ==
--- NOTE | ~2022-03-26 | MM_ITS ---
EXAMINATION: MM screening dionte BI w debbie HISTORY: Screening TECHNIQUE: Craniocaudal and mediolateral oblique 3-D tomosynthesis images were obtained and synthetic 2-D images were generated. CAD analysis was submitted and interpreted. COMPARISON: Comparison to multiple prior studies sequentially, with oldest reviewed study dated 09/27. BREAST PARENCHYMAL COMPOSITION: There are scattered areas of fibroglandular density. FINDINGS: There is no evidence of suspicious mass, calcification, or architectural distortion to sugg est malignancy in either breast. There has been no suspicious interval change. IMPRESSION: 1. No mammographic evidence of malignancy. 2. Recommend routine screening mammography in one year. BI-RADS Category 1: Negative Reviewed, dictated and finalized at location A.
== END ==
PROVIDERS: PCP Family Medicine; Visit Provider Obstetrics & Gynecology
DX: Z12.31 Encounter for screening mammogram for malignant neoplasm of breast (principal)
CPT/HCPCS: 77063; 77067

== ENCOUNTER 2022-09-19 10:54 | Outpatient (CLI) | payer MEDICARE, SELFPAY ==
[2022-09-19 19:50] LABS: Basophils Absolute Auto 0.1 K/mm3 (0.0-0.1); Basophils Percent Auto 0.7 % (0.2-1.2); Eosinophils Absolute Auto 0.4 K/mm3 (0-0.3); Hematocrit 43.8 % (37.0-47.0); Immature Granulocyte Absolute 0.02 K/mm3 (0.00-0.031); Immature Granulocyte Percent A 0.2 % (0-0.5); Lymphocytes Absolute Auto 3.54 K/mm3 (0.9-3.2); Lymphocytes Percent Auto 39.4 % (18.3-44.2); Mean Corpuscular Hemoglobin 29.9 pg (26-34); Mean Corpuscular Volume 93.6 fl (80-100); Mean Platelet Volume 9.6 fl (7.4-10.4); Monocytes Absolute Auto 0.8 K/mm3 (0.1-0.6); Monocytes Percent Auto 8.8 % (2.6-8.5); Neutrophils Absolute Auto 4.2 K/mm3 (1.3-6.7); Neutrophils Percent Auto 46.9 % (45.5-73.1); Platelet Count Result 341 k/mm3 (150-375); Red Blood Count 4.68 M/mm3 (4.2-5.4); Red Cell Distribution Width 13.5 % (11.5-14.5)
[2022-09-19 20:52] LABS: Hemoglobin A1C 5.3 % (<5.7)
[2022-09-19 20:54] LABS: Vitamin D 25 Hydroxy 50.8 ng/mL
[2022-09-19 20:58] LABS: Alanine Aminotransferase 22 U/L (6-35); Albumin Level 4.4 g/dL (3.5-5.1); Alkaline Phosphatase 79 U/L (38-126); Anion Gap 7 mmol/L (8-16); Aspartate Amino Transferase 36 U/L (14-36); Bilirubin,Total 0.5 mg/dL (0.2-1.3); Blood Urea Nitrogen 16 mg/dL (7-17); Calcium 9.7 mg/dL (8.4-10.2); Carbon Dioxide 30 mmol/L (22-30); Chloride 102 mmol/L (98-107); Cholesterol 254 mg/dL (0-200); Estimated Glomerular Filt Rate > 60; Glucose 86 mg/dL (65-110); HDL Direct 49 mg/dL; Potassium 4.5 mmol/L (3.4-5.0); Sodium 139 mmol/L (137-145); Triglycerides 185 mg/dL (<150)
[2022-09-19 21:09] LABS: LDL Cholesterol Direct 141 mg/dL
[2022-09-19 21:50] LABS: Vitamin B12 > 1000.0 pg/mL (239-931)
== END 2022-09-19 10:55 | disposition home or self-care (01) ==
LOC: ANHGOSHLAB 10:55
PROVIDERS: PCP Family Medicine; Visit Provider Family Medicine
DX: E55.9 Vitamin D deficiency, unspecified (principal); I10 Essential (primary) hypertension; E78.5 Hyperlipidemia, unspecified; Z00.00 Encounter for general adult medical examination without abnormal findings; E53.8 Deficiency of other specified B group vitamins; R73.9 Hyperglycemia, unspecified
CPT/HCPCS: 36415; 80053; 80061; 82306; 82607; 83036; 84443; 85025

== ENCOUNTER 2022-10-03 11:33 | Outpatient (CLI) | payer MEDICARE, SELFPAY ==
[2022-10-03 13:10] LABS: Alanine Aminotransferase 24 U/L (6-35); Aspartate Amino Transferase 27 U/L (14-36)
== END 2022-10-03 11:34 | disposition home or self-care (01) ==
LOC: ANHLAB 11:36
PROVIDERS: PCP Family Medicine; Visit Provider Internal Medicine Cardiovascular Disease
DX: E78.00 Pure hypercholesterolemia, unspecified (principal)
CPT/HCPCS: 36415; 84450; 84460

== ENCOUNTER 2023-01-01 15:14 | Outpatient (CLI) | payer MEDICARE, SELFPAY ==
[2023-01-01 19:05] LABS: Basophils Absolute Auto 0.1 K/mm3 (0.0-0.1); Basophils Percent Auto 0.8 % (0.2-1.2); Eosinophils Absolute Auto 0.4 K/mm3 (0-0.3); Eosinophils Percent Auto 3.8 % (0-4.4); Hematocrit 42.9 % (37.0-47.0); Hemoglobin 13.7 g/dL (12.0-15.0); Immature Granulocyte Absolute 0.02 K/mm3 (0.00-0.031); Immature Granulocyte Percent A 0.2 % (0-0.5); Lymphocytes Absolute Auto 3.55 K/mm3 (0.9-3.2); Lymphocytes Percent Auto 37.4 % (18.3-44.2); Mean Corpuscular HGB Conc 31.9 g/dl (32-36); Mean Corpuscular Hemoglobin 29.5 pg (26-34); Mean Corpuscular Volume 92.5 fl (80-100); Mean Platelet Volume 9.6 fl (7.4-10.4); Monocytes Absolute Auto 0.9 K/mm3 (0.1-0.6); Monocytes Percent Auto 8.9 % (2.6-8.5); Neutrophils Absolute Auto 4.6 K/mm3 (1.3-6.7); Neutrophils Percent Auto 48.9 % (45.5-73.1); Platelet Count Result 346 k/mm3 (150-375); Red Blood Count 4.64 M/mm3 (4.2-5.4); Red Cell Distribution Width 13.2 % (11.5-14.5); White Blood Count 9.5 K/mm3 (4.5-10.0)
[2023-01-01 20:24] LABS: Alanine Aminotransferase 24 U/L (6-35); Albumin Level 4.4 g/dL (3.5-5.1); Alkaline Phosphatase 84 U/L (38-126); Anion Gap 7 mmol/L (8-16); Aspartate Amino Transferase 32 U/L (14-36); Bilirubin,Total 0.4 mg/dL (0.2-1.3); Blood Urea Nitrogen 19 mg/dL (7-17); Calcium 9.7 mg/dL (8.4-10.2); Carbon Dioxide 28 mmol/L (22-30); Chloride 103 mmol/L (98-107); Estimated Glomerular Filt Rate > 60; Glucose 115 mg/dL (65-110); Potassium 3.8 mmol/L (3.4-5.0); Sodium 138 mmol/L (137-145)
== END 2023-01-01 15:15 | disposition home or self-care (01) ==
LOC: ANHGOSHLAB 15:17
PROVIDERS: PCP Family Medicine; Visit Provider Nurse Practitioner
DX: E78.5 Hyperlipidemia, unspecified (principal); I10 Essential (primary) hypertension; R10.9 Unspecified abdominal pain
CPT/HCPCS: 36415; 80053; 85025

== ENCOUNTER 2023-01-06 08:01 | Outpatient (CLI) | payer MEDICARE, SELFPAY ==
--- NOTE | ~2023-01-06 | US_ITS ---
Abdominal Sonogram: Real-time sonographic imaging of the abdomen was performed. Clinical History: Abdominal pain Findings: The liver appears normal with no evidence of mass lesion or bile duct dilatation. Main por beryl vein demonstrates normal direction of flow. The spleen is normal in size without evidence of foca l lesion. The gallbladder is well distended, and appears normal with no evidence of gallstone or wal l thickening. The common bile duct measures 4 mm. The visualized pancreas, aorta, and IVC are unrema rkable. The right kidney measures 11.2 cm in length and the left kidney measures 11.1 cm. There is no hydronephrosis or renal calculus. Impression: Unremarkable abdominal ultrasound. Reviewed, dictated and finalized at location . Impression: Unremarkable abdominal ultrasound.
== END 2023-01-06 08:02 ==
PROVIDERS: PCP Family Medicine; Visit Provider Nurse Practitioner
DX: R10.9 Unspecified abdominal pain (principal)
CPT/HCPCS: 76700

== ENCOUNTER 2023-01-08 12:24 | Outpatient (CLI) | payer MEDICARE, SELFPAY ==
--- NOTE | 2023-01-08 12:38 | ECG_ITS ---
Measurements Intervals [place] Rate: 63 P: 65 AR: 181 QRS: -18 QRSD: 92 T: -8 QT: 427 QTc: 439 Interpretive Statements SINUS RHYTHM BORDERLINE T WAVE ABNORMALITY- INFERIOR LEADS BASELINE ARTIFACT- I, II, III, AVR, AVL, AVF BORDERLINE ECG NO PREVIOUS ECG AVAILABLE FOR COMPARISON Electronically Signed On 01-08-2023 12:55:11 CDT by Daryn Shepard D.O.
== END 2023-01-08 12:25 | disposition home or self-care (01) ==
LOC: ANHSURGERY 12:29
PROVIDERS: PCP Family Medicine; Visit Provider Otolaryngology
DX: I10 Essential (primary) hypertension (principal); Z01.818 Encounter for other preprocedural examination; R94.31 Abnormal electrocardiogram [ECG] [EKG]
CPT/HCPCS: 93005

== ENCOUNTER 2023-01-14 01:27 | Day surgery (SDC) | payer MEDICARE, SELFPAY ==
[2023-01-06 15:22] VITALS: BMI 32.3
--- NOTE | 2023-01-06 15:53 | PC.NURSE ---
Report to the Outpatient Waiting Room, entrance under the green pavilion located off [facility], at time __7:15AM on date ___01/14/23____. Planned Procedure Time: __9:15AM . Time changes happen often and if your time is changed the preop area will call you the afternoon before. - You and your visitor will be asked to self-screen and do not enter if you have any COVID symptoms. - A mask is optional within the hospital at this time. Patients may have clear liquids (water, carbonated beverages, clear teas, apple juice) until 3 hours prior to surgery with a maximum of 20 ounces. - No food from midnight until time of surgery Take the following medications with a SIP of water the morning of surgery: __METOPROLOL, ALBUTEROL INHALER NEEDED DO NOT STOP ANY OF YOUR OTHER PRESCRIPTION MEDICATIONS PRIOR TO SURGERY ?EXCEPT THE FOLLOWING Medications to discontinue per physician ___HOLD ASPIRIN PER DR KERR, HOLD ALL VITAMINS/SUPPLEMENTS 3 DAYS PRE-OP PER ANESTHESIA Date to take last dose____01/10/23 Please no make-up, nail arabic, hairspray, perfume, deodorant, or body powder the day of surgery. No jewelry (including any body piercings) or valuables the day of surgery, leave them at home. Please take a shower or bath the night before, or the morning of, surgery with an antibacterial soap. Wear comfortable, loose fitting clothing. Children are encouraged to wear pajamas. - Jewelry must be removed prior to entering the operating room. Rings and piercings that are not removed may be cut off. - The hospital will not accept responsibility for valuables. - Please leave all valuables, including medications, at home the day of surgery. If you are going home after surgery, a licensed [employer] hazmat company driver must drive you home. - NO public transportation without another adult if you receive anesthesia. - We recommend that an adult stay with you for 24 hours following discharge. - We also recommend that you do not drive, make important decision, drink alcoholic beverages, or take any drugs that were not prescribed by your health care provider for at least 24 hours after your discharge time. Follow any additional instructions given to you from your surgeon. If you or anyone in your household have experienced Covid symptoms in the past week, please notify your surgeon or the nurse liaison at the phone number below for possible testing. Telephone instructions given to ___PATIENT and asked if any additional questions and then verbalized understanding. Patient advised to call surgeon office or pre surgery nurse liaison [phone] if any additional questions.
--- NOTE | 2023-01-13 17:24 | PM.IMHP ---
H&P: HPI History of Present Illness Date/Time: 01/13/23 17:24 Chief Complaint: septal deviation turbinate hypertrophy nasal obstruction nasal congestion Narrative: planned procedure Review of Systems Review of Systems: All systems reviewed & are unremarkable except as noted in HPI and below [facility] Past Medical History Medical History Arthritis Ascending aortic aneurysm 4.2 cm fusiform aneurysm of ascending aorta Chronic low back pain Dyslipidemia Dysphagia Emphysema of lung mild emphysema Environmental allergies Essential (primary) hypertension GERD without esophagitis History of esophageal stricture Multiple sclerosis not affecting current episode of care (~2012) Obstructive sleep apnea (~1989) Vertigo Surgical History Surgical History History of carpal tunnel surgery (~2016) History of cervical spinal surgery (~2014) C4,5,6 fusion History of esophageal dilatation (~04/2020) 04/27 History of mandibular surgery (~1989) Family History Family History Mother Family history of anemia Hypertension Family history of glaucoma Father Family history of malignant neoplasm of kidney Patient's father is Social History Social History Smoking packs per day: 0.75 Smoking cigarettes per day: 15.0 Years smoked: 8 Smoking pack-years: 6.00 Smoking status: Former smoker Tobacco type: cigarettes Smoking end date: 03/08/96 Alcohol intake: current Drinks per week: 1 Alcohol use details: Very little to none Substance use: never Substance use type: does not use Lack of Transportation: No Lack of Food: Never True Current Housing: I Have Housing Concerned About Future Housing: No Difficulty Paying Gas/Electric Bills: No Currently Unemployed: No Education: Associate Degree Difficulty w/ Childcare or Family Care: No Living arrangements: with family Additional living arrangements comments: [place] Occupation/Education: retired Additional occupation/education comments: [employer] Gender identity (if verbalized by the patient): Female Sexual Orientation (if Verbalized by the Patient): Straight or Heterosexual Spiritual care concerns: No Agree to blood products: Yes Meds Home Medications and Allergies Home Medications Medication Instructions Recorded Confirmed Type multivitamin 1 tablet PO DAILY 11/23/20 01/06/23 History metoprolol succinate 25 mg 25 mg PO QAM 02/15/21 01/06/23 History tablet,extended release 24 hr aspirin 81 mg tablet,delayed 81 mg PO DAILY 11/22/21 01/06/23 History release (Adult Low Dose Aspirin) cholecalciferol (vitamin D3) 50 50 mcg PO DAILY 04/01/22 01/06/23 History mcg (2,000 unit) tablet albuterol sulfate 90 mcg/actuation 1 - 2 puff inhalation Q4-6H PRN 06/11/22 01/06/23 Rx aerosol inhaler shortness of breath or wheezing #8.5 grams omeprazole 20 mg tablet,delayed 20 mg PO DAILY 09/19/22 01/06/23 History release terbinafine HCl 250 mg tablet 250 mg PO .COMPLEX 09/19/22 01/06/23 History loratadine 10 mg tablet 10 mg PO DAILY PRN Sinus Symptoms 01/01/23 01/06/23 History magnesium-potassium 40 mg-40 mg 1 cap PO DAILY 01/01/23 01/06/23 History capsule coenzyme Q10 100 mg capsule (Co 100 mg PO DAILY 01/06/23 01/06/23 History Q-10) omega-3 fatty acids-fish oil 684 1 cap PO DAILY 01/06/23 01/06/23 History mg-1,200 mg capsule,delayed release vitamin E 400 unit tablet 180 mg PO DAILY 01/06/23 01/06/23 History zinc 50 mg capsule 50 mg PO DAILY 01/06/23 01/06/23 History Allergies Allergy/AdvReac Type Severity Reaction Status Date / Time gemifloxacin Allergy Severe THROAT & Verified 01/06/23 15:21 TONGUE SWELLING ciprofloxacin Allergy Unknown THROAT & Verified 01/06/23 15:21 T
[2023-01-14] VITALS (9 sets, daily range): BP systolic 84–128; BP diastolic 44–75; PULSE 68–77; RESP 10–20; TEMP 36.2–36.8; O2SAT 93–100
--- NOTE | 2023-01-14 07:17 | WPDHPUPDATE1 ---
History and Physical Update Update Date/Time: 01/14/23 07:17 History and Physical has been reviewed, including an updated exam of the patient. There are NO changes in the patient's condition. Risks, benefits, and alternatives have been discussed and questions answered. Patient agrees to proceed with procedure.
[2023-01-14] MEDS: ACETAMINOPHEN 500 MG TABLET 1000 MG PO (08:03)
[2023-01-14] MEDS: LACTATED RINGERS 1,000 ML 30 ML IV CONT ×2 (08:05→11:09)
--- NOTE | 2023-01-14 09:25 | WPDANESEPPF ---
Anes - Initial Pre Proc Eval Procedure: Operation Date: 01/14/23 09:15 Proposed Procedures p Septoplasty - Raj Atwood MD s Bilateral Inferior Turbinectomy with Outfracture - Raj Atwood MD Date/Time: 01/14/23 09:25 Surgeon: Raj Atwood MD Pre Op Diagnosis: septal deviation and turbinate hypertrophy Patient Data Age: 67 Gender: F Height: 1.68 m Weight: 93.1 kg Last Vital Signs Temp 36.8 C 01/14/23 08:16 Pulse 68 01/14/23 08:16 Resp 16 01/14/23 08:16 BP 128/70 01/14/23 08:16 Pulse Ox 96 01/14/23 08:16 O2 Del Method Room Air 01/14/23 08:16 Allergies Allergy/AdvReac Type Severity Reaction Status Date / Time gemifloxacin Allergy Severe THROAT & Verified 01/14/23 07:40 TONGUE SWELLING ciprofloxacin Allergy Unknown THROAT & Verified 01/14/23 07:40 TONGUE SWELLING doxycycline Allergy Unknown unknown Verified 01/14/23 07:40 fluticasone Allergy Unknown Tongue Verified 01/14/23 07:40 swelling glatiramer (copolymer 1) Allergy Unknown TONGUE & Verified 01/14/23 07:40 THROAT SWELLING Penicillins Allergy Unknown TONGUE & Verified 01/14/23 07:40 THROAT SWELLING Sulfa (Sulfonamide Allergy Unknown THROAT & Verified 01/14/23 07:40 Antibiotics) TONGUE SWELLING azelastine AdvReac throat Verified 01/14/23 07:40 swell Home Medications Medication Instructions Recorded Confirmed Type multivitamin 1 tablet PO DAILY 11/23/20 01/06/23 History metoprolol succinate 25 mg 25 mg PO QAM 02/15/21 01/06/23 History tablet,extended release 24 hr aspirin 81 mg tablet,delayed 81 mg PO DAILY 11/22/21 01/06/23 History release (Adult Low Dose Aspirin) cholecalciferol (vitamin D3) 50 50 mcg PO DAILY 04/01/22 01/06/23 History mcg (2,000 unit) tablet albuterol sulfate 90 mcg/actuation 1 - 2 puff inhalation Q4-6H PRN 06/11/22 01/06/23 Rx aerosol inhaler shortness of breath or wheezing #8.5 grams omeprazole 20 mg tablet,delayed 20 mg PO DAILY 09/19/22 01/06/23 History release terbinafine HCl 250 mg tablet 250 mg PO .COMPLEX 09/19/22 01/06/23 History loratadine 10 mg tablet 10 mg PO DAILY PRN Sinus Symptoms 01/01/23 01/06/23 History magnesium-potassium 40 mg-40 mg 1 cap PO DAILY 01/01/23 01/06/23 History capsule coenzyme Q10 100 mg capsule (Co 100 mg PO DAILY 01/06/23 01/06/23 History Q-10) omega-3 fatty acids-fish oil 684 1 cap PO DAILY 01/06/23 01/06/23 History mg-1,200 mg capsule,delayed release vitamin E 400 unit tablet 180 mg PO DAILY 01/06/23 01/06/23 History zinc 50 mg capsule 50 mg PO DAILY 01/06/23 01/06/23 History Patient hx anesthesia problems: none Family hx anesthesia problems: none Results Review: All pre-operative results and documents have been reviewed as part of the pre-operative evaluation. [facility] Past Medical History Medical History Arthritis Ascending aortic aneurysm 4.2 cm fusiform aneurysm of ascending aorta Chronic low back pain Dyslipidemia Dysphagia Emphysema of lung mild emphysema Environmental allergies Essential (primary) hypertension GERD without esophagitis History of esophageal stricture Multiple sclerosis not affecting current episode of care (~2012) Obstructive sleep apnea (~1989) Vertigo Surgical History Surgical History History of carpal tunnel surgery (~2016) History of cervical spinal surgery (~2014) C4,5,6 fusion History of esophageal dilatation (~04/2020) 04/27 History of mandibular surgery (~1989) Family History Family History Mother Family history of anemia Hypertension Family history of glaucoma Father Family history of malignant neoplasm of kidney Patient's father is Social History Social History Smoking packs per day: 0.75 Sm
[2023-01-14] MEDS: CLINDAMYCIN 900 MG/D5W 50 ML 900 MG/50 ML PIGGYBACK 50 MG IVPB (09:44)
[2023-01-14] MEDS: OXYMETAZOLINE HCL 0.05% NAS 15 ML BTL (*BKC) 1 SPRAY NASAL (10:18)
[2023-01-14] MEDS: MUPIROCIN 2% OINT 22 GM TUBE 1 APPLIC EACH NARE (10:29)
[2023-01-14] MEDS: LIDO 1%/EPINEPHRINE 1:100,000 50 ML VIAL 20 ML INFILTRATE (10:45)
--- NOTE | 2023-01-14 11:13 | W.PM.PROC2 ---
Procedure Note - Detailed Date of Procedure 01/14/23 Pre-op Diagnosis septal deviation and turbinate hypertrophy Post-op Diagnosis Same Procedure Performed Endoscopic assisted septoplasty turbinate reduction with outfracture Surgeon Raj Atwood MD Anesthesia General Indications left septal deviation of very large turbinates Findings incredibly scarred down nasal septal flaps. Absent turgor septum in the middle. No history of septoplasty. No perforations bilaterally overall a good surgery I was just not able to be as aggressive as I wanted. Description of Procedure Patient identified consent verified. Patient brought operating. Time-out performed. General anesthesia induced endotracheal tube secured. Patient prepped draped position 2nd time-out performed. Afrin-soaked pledgets placed in bilateral nasal passages allowed to sit for 5 minutes then removed. 0 degree scope used. 11 cc 1% lidocaine 1 100,000 parts epinephrine injected in the bilateral nasal septum and heads of the inferior turbinates. Ross incision made left-sided very very abnormal appearing cartilage very challenging to raise left nasal septal flap linear tear is going from anterior to posterior. Right nasal septal flap elevated as there was absent cartilage no need to cross over. Dolly forceps osteotome Cecil Hidalgo forceps utilized to remove the deviated cartilage nasal septal flap RI [place] incision closed with 3 interrupted 5 0 fast gut sutures. Turbinates reduced the submucosal plane bilaterally using microdebrider with turbinate blade very good reduction. They were then outfractured even better airway. [place] tips then cauterized. Diaz splints placed sutured anteriorly using a 3-0 interrupted her sorry 3-0 mattressed nylon suture. Blood loss probably 5-10 cc. I performed all dictated portions of the procedure. Care the patient given Anesthesiology. No complications. Patient taken to PACU. Estimated Blood Loss 5 Drains No Packing No Pathology None sent Complications No immediate complications Condition Stable Disposition PACU [facility] Billing Surgery - Charge Forward: Surgery Billing
[2023-01-14] MEDS: oxyCODONE HCL (*CRX) 5 MG TAB IR PO (12:14)
== END 2023-01-14 13:19 | disposition home or self-care (01) ==
PROVIDERS: PCP Family Medicine; Visit Provider Otolaryngology
PROC: (CPT 30520; principal; 2023-01-14 09:15)
PROC: (CPT 30520; 2023-01-14 09:15)
DX: J34.2 Deviated nasal septum (principal); J34.3 Hypertrophy of nasal turbinates; J34.89 Other specified disorders of nose and nasal sinuses; R09.81 Nasal congestion; I71.21 Aneurysm of the ascending aorta, without rupture; E78.5 Hyperlipidemia, unspecified; I10 Essential (primary) hypertension; J21.9 Acute bronchiolitis, unspecified; G35 Multiple sclerosis; G47.33 Obstructive sleep apnea (adult) (pediatric); Z98.1 Arthrodesis status; Z87.891 Personal history of nicotine dependence; E66.9 Obesity, unspecified; Z68.33 Body mass index [BMI] 33.0-33.9, adult; Z79.51 Long term (current) use of inhaled steroids; Z79.82 Long term (current) use of aspirin
CPT/HCPCS: 30520; 30140; 93005; A9270; J1100; J1170; J2250; J2370; J2405; J2704; J2710; J3010; J7120

== ENCOUNTER 2023-03-26 10:29 | Outpatient (CLI) | payer MEDICARE, SELFPAY ==
[2023-03-26 15:46] LABS: Alanine Aminotransferase 24 U/L (6-35); Albumin Level 4.3 g/dL (3.5-5.1); Alkaline Phosphatase 78 U/L (38-126); Anion Gap 8 mmol/L (8-16); Aspartate Amino Transferase 42 U/L (14-36); Bilirubin,Total 0.3 mg/dL (0.2-1.3); Blood Urea Nitrogen 15 mg/dL (7-17); Calcium 9.8 mg/dL (8.4-10.2); Carbon Dioxide 30 mmol/L (22-30); Chloride 99 mmol/L (98-107); Estimated Glomerular Filt Rate > 60; Glucose 91 mg/dL (65-110); Potassium 4.4 mmol/L (3.4-5.0); Sodium 137 mmol/L (137-145)
== END 2023-03-26 10:30 | disposition home or self-care (01) ==
LOC: ANHGOSHLAB 10:34
PROVIDERS: PCP Family Medicine; Visit Provider Family Medicine
DX: E78.5 Hyperlipidemia, unspecified (principal); I10 Essential (primary) hypertension
CPT/HCPCS: 36415; 80053

== ENCOUNTER 2023-04-03 13:01 | Outpatient (RCR) | payer MEDICARE, SELFPAY ==
[2023-04-03 13:09] VITALS: BMI 31.7
[2023-04-03 13:12] VITALS: BMI 31.7
== END 2023-06-23 11:09 | disposition home or self-care (01) ==
LOC: ANHDMC 13:01
PROVIDERS: PCP Family Medicine; Visit Provider Family Medicine
DX: E66.9 Obesity, unspecified (principal); K21.9 Gastro-esophageal reflux disease without esophagitis; I10 Essential (primary) hypertension; E78.5 Hyperlipidemia, unspecified; Z71.3 Dietary counseling and surveillance
CPT/HCPCS: 97802

== ENCOUNTER 2023-06-25 09:50 | Outpatient (CLI) | payer MEDICARE, SELFPAY ==
--- NOTE | ~2023-06-25 | DEXA_ITS ---
Bone Density Report Name: ALFONSO PAYAN Age: 67 Sex: Female Ethnicity: White Date of : 1955 Indication: postmenopausal; screening for osteoporosis; height loss; prior fracture; Referring Provider: EL, ZAKI Red Study: Bone densitometry was performed. Exam Date: June 25, 2023 Accession number: [id number] Bone Density: Region BMD T-score Z-score Classification AP Spine(L1-L4) 1.221 1.6 3.5 Normal Femoral Neck (Left) 0.791 -0.5 1.1 Normal Total Hip (Left) 0.901 -0.3 1.0 Normal Femoral Neck (Right) 0.658 -1.7 -0.1 Osteopenia Total Hip (Right) 0.773 -1.4 -0.1 Osteopenia Total Hip Mean 0.837 -0.9 0.5 Normal World Health Organization criteria for BMD impression classify patients as: Normal (T-score at or above -1.0), Osteopenia (T-score between -1.0 and -2.5), or Osteoporosis (T-score at or below -2.5). 10-year Fracture Risk: FRAX not reported because: Prior hip or vertebral fracture Clinical Information Provided by Patient: Have had a previous hip or vertebral fracture Has had a low trauma fracture Has used the following medications: Vitamin D Patient maximum height was 66.5 Menopause Age: 51 Does not regularly consume dairy products Drinks caffeinated beverages Onset of menses at age 14 Number of children 2 Impression: The patient has low bone mass, based on the Right Femoral Neck T-score. The patient has risk factors, including: previous fracture. Discussion: INCREASED RISK OF FRACTURE DUE TO HISTORY OF FRACTURE. The patient's previous fracture puts the patient at high risk of a future fracture. In untreated patients, the risk of osteoporotic fracture increases approximately two-fold for each 1.0 SD decrease in T-score. Low bone density is not the only risk factor for fracture; also consider factors such as patient's age, frailty or poor health, risk of falling, risk of injury, previous osteoporotic fracture, family history of osteoporosis, cigarette smoking, low body weight, etc. Not everyone with a low trauma fracture has osteoporosis; osteomalacia and other metabolic bone disorders should also be considered. Patients who have osteoporosis should be evaluated for specific diseases and conditions (secondary causes) that may cause or contribute to bone loss and fracture risk. National Osteoporosis Foundation (NOF) recommends pharmacologic intervention for patients with a prior hip or vertebral fracture regardless of BMD T-score. The patient should follow a healthful lifestyle (good nutrition with adequate calcium and vitamin D, and appropriate weight-bearing exercise). Follow-Up: Consider a repeat BMD and Vertebral Fracture Assessment (VFA) exam in 2 years or sooner if medically necessary, to reassess this patient's status. Reported by: HAYDE on 06/25/2023 10:35:00 AM. __
--- NOTE | ~2023-06-25 | MM_ITS ---
EXAMINATION: MM screening dionte BI w debbie HISTORY: Screening TECHNIQUE: Craniocaudal and mediolateral oblique 3-D tomosynthesis images were obtained and synthetic 2-D images were generated. CAD analysis was submitted and interpreted. COMPARISON: Comparison to multiple prior studies sequentially, with oldest reviewed study dated 09/29. BREAST PARENCHYMAL COMPOSITION: There are scattered areas of fibroglandular density. FINDINGS: There is no evidence of suspicious mass, calcification, or architectural distortion to sugg est malignancy in either breast. There has been no suspicious interval change. IMPRESSION: 1. No mammographic evidence of malignancy. 2. Recommend routine screening mammography in one year. BI-RADS Category 1: Negative Reviewed, dictated and finalized at location A.
== END 2023-06-25 09:51 | disposition home or self-care (01) ==
LOC: ANHIMG 09:54
PROVIDERS: PCP Family Medicine; Visit Provider Obstetrics & Gynecology
DX: Z12.31 Encounter for screening mammogram for malignant neoplasm of breast (principal); Z13.820 Encounter for screening for osteoporosis; Z78.0 Asymptomatic menopausal state; M85.851 Other specified disorders of bone density and structure, right thigh
CPT/HCPCS: 77063; 77067; 77080

== ENCOUNTER 2023-09-16 10:13 | Outpatient (CLI) | payer MEDICARE, SELFPAY ==
[2023-09-16 10:41] LABS: Alanine Aminotransferase 19 U/L (6-35); Aspartate Amino Transferase 36 U/L (14-36)
== END 2023-09-16 10:14 | disposition home or self-care (01) ==
LOC: ANHLAB 10:16
PROVIDERS: PCP Family Medicine; Visit Provider Podiatrist Foot & Ankle Surgery
DX: B35.1 Tinea unguium (principal)
CPT/HCPCS: 36415; 84450; 84460

== ENCOUNTER 2023-10-07 10:32 | Outpatient (CLI) | payer MEDICARE, SELFPAY ==
[2023-10-07 14:20] LABS: Basophils Absolute Auto 0.1 K/mm3 (0.0-0.1); Basophils Percent Auto 0.9 % (0.2-1.2); Eosinophils Absolute Auto 0.4 K/mm3 (0-0.3); Eosinophils Percent Auto 4.4 % (0-4.4); Hematocrit 43.5 % (37.0-47.0); Hemoglobin 14.1 g/dL (12.0-15.0); Immature Granulocyte Absolute 0.02 K/mm3 (0.00-0.031); Immature Granulocyte Percent A 0.2 % (0-0.5); Lymphocytes Absolute Auto 3.06 K/mm3 (0.9-3.2); Lymphocytes Percent Auto 35.4 % (18.3-44.2); Mean Corpuscular HGB Conc 32.4 g/dl (32-36); Mean Corpuscular Hemoglobin 29.8 pg (26-34); Mean Platelet Volume 9.7 fl (7.4-10.4); Monocytes Absolute Auto 0.8 K/mm3 (0.1-0.6); Monocytes Percent Auto 9.4 % (2.6-8.5); Neutrophils Absolute Auto 4.3 K/mm3 (1.3-6.7); Neutrophils Percent Auto 49.7 % (45.5-73.1); Platelet Count Result 346 k/mm3 (150-375); Red Blood Count 4.73 M/mm3 (4.2-5.4); Red Cell Distribution Width 13.3 % (11.5-14.5); White Blood Count 8.7 K/mm3 (4.5-10.0)
[2023-10-07 15:03] LABS: Alanine Aminotransferase 19 U/L (6-35); Alkaline Phosphatase 79 U/L (38-126); Anion Gap 5 mmol/L (8-16); Aspartate Amino Transferase 71 U/L (14-36); Bilirubin,Total 0.5 mg/dL (0.2-1.3); Blood Urea Nitrogen 17 mg/dL (7-17); Calcium 9.9 mg/dL (8.4-10.2); Carbon Dioxide 30 mmol/L (22-30); Chloride 103 mmol/L (98-107); Cholesterol 204 mg/dL (0-200); Estimated Glomerular Filt Rate > 60; Glucose 91 mg/dL (65-110); Potassium 4.3 mmol/L (3.4-5.0); Sodium 138 mmol/L (137-145); Triglycerides 130 mg/dL (<150)
[2023-10-07 15:13] LABS: LDL Cholesterol Direct 124 mg/dL
[2023-10-07 15:26] LABS: Vitamin D 25 Hydroxy 65.7 ng/mL
[2023-10-07 15:38] LABS: HDL Direct 42 mg/dL
[2023-10-07 16:19] LABS: Hemoglobin A1C 5.2 % (<5.7); Vitamin B12 > 1000.0 pg/mL (239-931)
== END 2023-10-07 10:33 | disposition home or self-care (01) ==
PROVIDERS: PCP Family Medicine; Visit Provider Family Medicine
DX: E53.8 Deficiency of other specified B group vitamins (principal); E55.9 Vitamin D deficiency, unspecified; J43.9 Emphysema, unspecified; Z00.00 Encounter for general adult medical examination without abnormal findings; R73.9 Hyperglycemia, unspecified; I10 Essential (primary) hypertension; E78.5 Hyperlipidemia, unspecified
CPT/HCPCS: 36415; 80053; 80061; 82306; 82607; 83036; 84443; 85025

== ENCOUNTER 2023-11-28 01:16 | Day surgery (SDC) | payer MEDICARE, SELFPAY ==
--- NOTE | 2023-11-26 10:15 | SUR.PREOP ---
Patient called regarding upcoming procedure. Reviewed preop instructions, appointment times, and procedure prep.
[2023-11-28 12:30] VITALS: BP 116/73; PULSE 63; RESP 16; TEMP 36.4; O2SAT 96; BMI 30.4
[2023-11-28] MEDS: LACTATED RINGERS 1,000 ML 150 ML IV CONT (12:39)
--- NOTE | 2023-11-28 13:03 | WPDANESEPPF ---
Anes - Initial Pre Proc Eval Procedure: Operation Date: 11/28/23 13:30 Proposed Procedures p Esophagogastroduodenoscopy - Rosendo Pagan MD Date/Time: 11/28/23 13:03 Surgeon: Rosendo Pagan MD Pre Op Diagnosis: dysphagia,hx of digestive diseases Patient Data Age: 67 Gender: F Height: 1.68 m Weight: 85.7 kg Last Vital Signs Temp 97.6 F 11/28/23 12:30 Pulse 63 11/28/23 12:30 Resp 16 11/28/23 12:30 BP 116/73 11/28/23 12:30 Pulse Ox 96 11/28/23 12:30 O2 Del Method Room Air 11/28/23 12:30 Allergies Allergy/AdvReac Type Severity Reaction Status Date / Time gemifloxacin Allergy Severe THROAT & Verified 11/28/23 12:40 TONGUE SWELLING ciprofloxacin Allergy Unknown THROAT & Verified 11/28/23 12:40 TONGUE SWELLING doxycycline Allergy Unknown unknown Verified 11/28/23 12:40 fluticasone Allergy Unknown Tongue Verified 11/28/23 12:40 swelling glatiramer (copolymer 1) Allergy Unknown TONGUE & Verified 11/28/23 12:40 THROAT SWELLING Penicillins Allergy Unknown TONGUE & Verified 11/28/23 12:40 THROAT SWELLING Sulfa (Sulfonamide Allergy Unknown THROAT & Verified 11/28/23 12:40 Antibiotics) TONGUE SWELLING azelastine AdvReac throat Verified 11/28/23 12:40 swell Home Medications Medication Instructions Recorded Confirmed Type multivitamin 1 tablet PO DAILY 11/23/20 11/28/23 History metoprolol succinate 25 mg 25 mg PO QAM 02/15/21 11/28/23 History tablet,extended release 24 hr aspirin 81 mg tablet,delayed 81 mg PO DAILY 11/22/21 11/28/23 History release (Adult Low Dose Aspirin) albuterol sulfate 90 mcg/actuation 1 - 2 puff inhalation Q4-6H PRN 06/11/22 11/28/23 Rx aerosol inhaler shortness of breath or wheezing #8.5 grams loratadine 10 mg tablet 10 mg PO DAILY PRN Sinus Symptoms 01/01/23 11/28/23 History magnesium-potassium 40 mg-40 mg 1 cap PO DAILY 01/01/23 11/28/23 History capsule coenzyme Q10 100 mg capsule (Co 100 mg PO DAILY 01/06/23 11/28/23 History Q-10) vitamin E 400 unit tablet 180 mg PO DAILY 01/06/23 11/28/23 History zinc 50 mg capsule 50 mg PO DAILY 01/06/23 11/28/23 History cholecalciferol (vitamin D3) 75 75 mcg PO DAILY 10/07/23 11/28/23 History mcg (3,000 unit) tablet ipratropium bromide 21 mcg (0.03 2 spray intranasal BID PRN 10/07/23 11/28/23 History %) nasal spray Congestion terbinafine HCl 250 mg tablet 250 mg PO DAILY 10/07/23 11/28/23 History triamcinolone acetonide 55 mcg 2 spray intranasal DAILY PRN 10/07/23 11/28/23 History nasal spray aerosol (Nasacort Congestion Allergy) famotidine 20 mg tablet (Pepcid AC) 20 mg PO DAILY 11/20/23 11/28/23 History Patient hx anesthesia problems: none Family hx anesthesia problems: none Results Review: All pre-operative results and documents have been reviewed as part of the pre-operative evaluation. [facility] Past Medical History Medical History Arthritis Ascending aortic aneurysm 4.2 cm fusiform aneurysm of ascending aorta Chronic low back pain Dyslipidemia Dysphagia Emphysema of lung mild emphysema Environmental allergies Essential (primary) hypertension GERD without esophagitis History of esophageal stricture Multiple sclerosis not affecting current episode of care (~2012) Nasal septal deviation Obstructive sleep apnea (~1989) Osteopenia Vertigo Surgical History Surgical History History of carpal tunnel surgery (~2016) History of cervical spinal surgery (~2014) C4,5,6 fusion History of esophageal dilatation 07/29, 04/27 History of mandibular surgery (~1989) History of nasal septoplasty (~01/2023) Endoscopic assisted septoplasty turbinate reduction Family History Family History Mother Family history of anemia Hypertension
--- NOTE | 2023-11-28 13:10 | PM.HPGS ---
History of Present Illness History of Present Illness Consent: Risks, benefits, and alternatives have been discussed and questions answered. Patient agrees to proceed with procedure. Chief complaint: dysphagia,hx of digestive diseases Narrative: Jamila Monzon is a 67 year old female with dysphagia after swallowing capsules, she had previous dilatations in the past last time by Dr Martinez 2020 (last 2 previous biopsies without hernández's but it seems that years ago had Hernández's), she used to be on ppi but most currently taking pepcid which is working better. Review of Systems Review of Systems: All systems reviewed & are unremarkable except as noted in HPI and below PMFSH Past Medical History Medical History Arthritis Ascending aortic aneurysm 4.2 cm fusiform aneurysm of ascending aorta Chronic low back pain Dyslipidemia Dysphagia Emphysema of lung mild emphysema Environmental allergies Essential (primary) hypertension GERD without esophagitis History of esophageal stricture Multiple sclerosis not affecting current episode of care (~2012) Nasal septal deviation Obstructive sleep apnea (~1989) Osteopenia Vertigo Surgical History Surgical History History of carpal tunnel surgery (~2016) History of cervical spinal surgery (~2014) C4,5,6 fusion History of esophageal dilatation 07/29, 04/27 History of mandibular surgery (~1989) History of nasal septoplasty (~01/2023) Endoscopic assisted septoplasty turbinate reduction Family History Family History Mother Family history of anemia Hypertension Family history of glaucoma Father Family history of malignant neoplasm of kidney Patient's father is Social History Social History Smoking packs per day: 0.75 Smoking cigarettes per day: 15.0 Years smoked: 8 Smoking pack-years: 6.00 Smoking status: Former smoker Tobacco type: cigarettes Smoking end date: 09/08/95 Alcohol intake: current Drinks per week: 1 Alcohol use details: Very little to none Substance use: never Substance use type: does not use Lack of Transportation: No Lack of Food: Never True Current Housing: I Have Housing Concerned About Future Housing: Decline to Answer Difficulty Paying Gas/Electric Bills: Decline to Answer Difficulty Paying for Meds: YES Currently Unemployed: Decline to Answer Education: Decline to Answer Difficulty w/ Childcare or Family Care: No Living arrangements: with family Additional living arrangements comments: [facility] Occupation/Education: retired Additional occupation/education comments: [employer] Gender identity (if verbalized by the patient): Female Sexual Orientation (if Verbalized by the Patient): Straight or Heterosexual Spiritual care concerns: No Agree to blood products: Yes Meds Home Medications and Allergies Home Medications Medication Instructions Recorded Confirmed Type multivitamin 1 tablet PO DAILY 11/23/20 11/28/23 History metoprolol succinate 25 mg 25 mg PO QAM 02/15/21 11/28/23 History tablet,extended release 24 hr aspirin 81 mg tablet,delayed 81 mg PO DAILY 11/22/21 11/28/23 History release (Adult Low Dose Aspirin) albuterol sulfate 90 mcg/actuation 1 - 2 puff inhalation Q4-6H PRN 06/11/22 11/28/23 Rx aerosol inhaler shortness of breath or wheezing #8.5 grams loratadine 10 mg tablet 10 mg PO DAILY PRN Sinus Symptoms 01/01/23 11/28/23 History magnesium-potassium 40 mg-40 mg 1 cap PO DAILY 01/01/23 11/28/23 History capsule coenzyme Q10 100 mg capsule (Co 100 mg PO DAILY 01/06/23 11/28/23 History Q-10) vitamin E 400 unit tablet 180 mg PO DAILY 01/06/23 11/28/23 History zinc 50 mg capsule 50 mg PO DAILY 01/06/23 11/28/23 History cholecalcif
[2023-11-28 13:27] VITALS: BP 93/57; PULSE 63; RESP 24; O2SAT 97
[2023-11-28 13:37] VITALS: BP 109/74; PULSE 61; RESP 25; O2SAT 97
[2023-11-28 13:47] VITALS: BP 122/80; PULSE 60; RESP 18; O2SAT 99
== END 2023-11-28 13:55 | disposition home or self-care (01) ==
PROVIDERS: PCP Family Medicine; Visit Provider Internal Medicine Gastroenterology
PROC: 0DJ08ZZ Inspection of Upper Intestinal Tract, Via Natural or Artificial Opening Endoscopic (ICD-10-PCS; CPT 43235; principal; 2023-11-28 13:30)
DX: K22.2 Esophageal obstruction (principal); K44.9 Diaphragmatic hernia without obstruction or gangrene; K29.70 Gastritis, unspecified, without bleeding; I71.21 Aneurysm of the ascending aorta, without rupture; E78.5 Hyperlipidemia, unspecified; J43.9 Emphysema, unspecified; I10 Essential (primary) hypertension; K21.9 Gastro-esophageal reflux disease without esophagitis; G35 Multiple sclerosis; G47.33 Obstructive sleep apnea (adult) (pediatric); Z98.1 Arthrodesis status; Z87.891 Personal history of nicotine dependence; E66.9 Obesity, unspecified; Z68.30 Body mass index [BMI] 30.0-30.9, adult; Z79.82 Long term (current) use of aspirin; Z79.51 Long term (current) use of inhaled steroids
CPT/HCPCS: 43239; 43249; 88305; C1726; J2704; J7120

== ENCOUNTER 2024-01-20 21:34 | Emergency (ER) | payer MEDICARE, SELFPAY ==
--- NOTE | ~2024-01-20 | CT_ITS ---
EXAMINATION: CT brain wo con DATE: 01/20/2024 22:01 INDICATION: fall . TECHNIQUE: Computed tomography (CT) of the head was performed without intravenous contrast. The mA wa s adjusted according to patient size. Iterative reconstruction technique was employed. The dose-lengt h product was 681.00 mGy-cm. COMPARISON: None. FINDINGS: Mild motion artifact. No acute intracranial hemorrhage or extra-axial fluid collection. No hydrocephalus, mass, or herniation. No acute ischemic infarct. Unremarkable dural venous sinus attenuation. No acute osseous abnormality. Moderate left maxillary mucosal thickening with aerated secretions, mild right maxillary and ethmoid mucosal thickening, the remaining aerated spaces are clear. IMPRESSION: No acute intracranial process. Acute left maxillary sinusitis. Reviewed, dictated and finalized at location K.
--- NOTE | ~2024-01-20 | CT_ITS ---
EXAMINATION: CT facial bones wo con DATE: 01/20/2024 22:01 INDICATION: fall . TECHNIQUE: Computed tomography (CT) of the facial bones and maxillofacial region was performed withou t intravenous contrast. Automated exposure control and iterative reconstruction technique were employ ed. The dose-length product was 681.00 mGy-cm. COMPARISON: None. FINDINGS: Soft Tissues: Soft tissue swelling/hematoma over the right cheek. Facial bones: No acute fracture. No lytic or blastic process. Eyes: The globes are intact. The soft tissue planes of the orbits are maintained. Paranasal Sinuses: Moderate left maxillary mucosal thickening with aerated secretions, mild ethmoid and right maxillary mucosal thickening, the remaining aerated spaces are clear. Foreign Bodies: No radiopaque foreign bodies. Other Findings: None. IMPRESSION: No evidence of acute facial bone fracture. Acute left maxillary sinusitis. Reviewed, dictated and finalized at location K.
[2024-01-20 21:35] VITALS: BP 149/84; PULSE 70; RESP 16; TEMP 36.4; O2SAT 99
[2024-01-20 21:50] VITALS: BP 150/91; PULSE 72; RESP 16; TEMP 36.4; O2SAT 99
--- NOTE | 2024-01-20 22:46 | ED.FALL ---
HPI - Fall General Chief Complaint: Fall Stated Complaint: fall, facial trauma Time Seen by Provider: 01/20/24 22:06 Source: patient Mode of arrival: ambulatory Limitations: no limitations History of Present Illness HPI Narrative: This is a 68-year-old female who presents to the ED with chief complaint of ground level fall that occurred just prior to arrival. Patient reports that she was walking through [employer] when her right sandal got caught under her foot. Reports she fell straight down to the ground and hit her face on the concrete. Reports that she struck the right side of the face. She is not on any blood thinners. She thinks she may have saw stars but did not lose consciousness. Denies nausea, vomiting, numbness, weakness or any further sites of pain or injury Related Data Home Medications Medication Instructions Recorded Confirmed multivitamin 1 tablet PO DAILY 11/23/20 11/28/23 metoprolol succinate 25 mg 25 mg PO QAM 02/15/21 11/28/23 tablet,extended release 24 hr aspirin 81 mg tablet,delayed 81 mg PO DAILY 11/22/21 11/28/23 release (Adult Low Dose Aspirin) loratadine 10 mg tablet 10 mg PO DAILY PRN Sinus Symptoms 01/01/23 11/28/23 magnesium-potassium 40 mg-40 mg 1 cap PO DAILY 01/01/23 11/28/23 capsule coenzyme Q10 100 mg capsule (Co 100 mg PO DAILY 01/06/23 11/28/23 Q-10) vitamin E 400 unit tablet 180 mg PO DAILY 01/06/23 11/28/23 zinc 50 mg capsule 50 mg PO DAILY 01/06/23 11/28/23 cholecalciferol (vitamin D3) 75 75 mcg PO DAILY 10/07/23 11/28/23 mcg (3,000 unit) tablet ipratropium bromide 21 mcg (0.03 2 spray intranasal BID PRN 10/07/23 11/28/23 %) nasal spray Congestion terbinafine HCl 250 mg tablet 250 mg PO DAILY 10/07/23 11/28/23 triamcinolone acetonide 55 mcg 2 spray intranasal DAILY PRN 10/07/23 11/28/23 nasal spray aerosol (Nasacort Congestion Allergy) famotidine 20 mg tablet (Pepcid AC) 20 mg PO DAILY 11/20/23 11/28/23 Allergies Allergy/AdvReac Type Severity Reaction Status Date / Time gemifloxacin Allergy Severe THROAT & Verified 11/28/23 12:40 TONGUE SWELLING ciprofloxacin Allergy Unknown THROAT & Verified 11/28/23 12:40 TONGUE SWELLING doxycycline Allergy Unknown unknown Verified 11/28/23 12:40 fluticasone Allergy Unknown Tongue Verified 11/28/23 12:40 swelling glatiramer (copolymer 1) Allergy Unknown TONGUE & Verified 11/28/23 12:40 THROAT SWELLING Penicillins Allergy Unknown TONGUE & Verified 11/28/23 12:40 THROAT SWELLING Sulfa (Sulfonamide Allergy Unknown THROAT & Verified 11/28/23 12:40 Antibiotics) TONGUE SWELLING azelastine AdvReac throat Verified 11/28/23 12:40 martina Review of Systems Review of Systems: All systems as dictated in [facility] Past Medical History Medical History Arthritis Ascending aortic aneurysm 4.2 cm fusiform aneurysm of ascending aorta Chronic low back pain Dyslipidemia Dysphagia Emphysema of lung mild emphysema Environmental allergies Essential (primary) hypertension GERD without esophagitis History of esophageal stricture Multiple sclerosis not affecting current episode of care (~2012) Nasal septal deviation Obstructive sleep apnea (~1989) Osteopenia Vertigo Surgical History Surgical History History of carpal tunnel surgery (~2016) History of cervical spinal surgery (~2014) C4,5,6 fusion History of esophageal dilatation 07/29, 04/27 History of mandibular surgery (~1989) History of nasal septoplasty (~01/2023) Endoscopic assisted septoplasty turbinate reduction Family History Family History Mother Family history of anemia Hypertension Family history of glaucoma Father Family history of malignant neoplasm of kidney Patient's father is Social History Social History (
[2024-01-20 22:51] VITALS: BP 142/72; PULSE 73; RESP 16; O2SAT 97
== END 2024-01-20 23:04 | disposition home or self-care (01) ==
PROVIDERS: Emergency Provider Physician Assistant; PCP Family Medicine
DX: S00.11XA Contusion of right eyelid and periocular area, initial encounter (principal); E78.5 Hyperlipidemia, unspecified; J43.9 Emphysema, unspecified; I10 Essential (primary) hypertension; G35 Multiple sclerosis; G47.33 Obstructive sleep apnea (adult) (pediatric); K21.9 Gastro-esophageal reflux disease without esophagitis; M19.90 Unspecified osteoarthritis, unspecified site; M85.80 Other specified disorders of bone density and structure, unspecified site; Z87.891 Personal history of nicotine dependence; Z98.1 Arthrodesis status; W01.0XXA Fall on same level from slipping, tripping and stumbling without subsequent striking against object, initial encounter
CPT/HCPCS: 70450; 70486; 99284

== ENCOUNTER 2024-03-26 11:29 | Outpatient (CLI) | payer MEDICARE, SELFPAY ==
--- NOTE | 2024-03-26 11:30 | ECG_ITS ---
Test Date: 2024-03-26 11:46:39 Measurements Intervals [place] Rate: 64 P: 48 DE: 135 QRS: -20 QRSD: 89 T: -12 QT: 418 QTc: 432 Interpretive Statements SINUS RHYTHM BORDERLINE ST-T WAVE ABNORMALITY- INFERIOR LEADS BASELINE ARTIFACT- I, II, III, AVR, AVL, AVF BORDERLINE ECG No previous ECG available for comparison Electronically Signed On 03-26-2024 11:55:19 CDT by Daryn Shepard D.O.
== END 2024-03-26 11:30 | disposition home or self-care (01) ==
LOC: ANHSURGERY 11:29
PROVIDERS: PCP Family Medicine; Visit Provider Otolaryngology
DX: I10 Essential (primary) hypertension (principal); Z01.818 Encounter for other preprocedural examination; R94.31 Abnormal electrocardiogram [ECG] [EKG]
CPT/HCPCS: 93005

== ENCOUNTER 2024-03-30 02:39 | Day surgery (SDC) | payer MEDICARE, SELFPAY ==
[2024-03-26 09:01] VITALS: BMI 31.5
--- NOTE | 2024-03-26 09:02 | PC.NURSE ---
Report to the Outpatient Waiting Room, entrance under the green pavilion located off [facility], at time _0815_ on date _[id number]_. Planned Procedure Time: _1015_. Time changes happen often and if your time is changed the preop area will call you the afternoon before. - You and your visitor will be asked to self-screen and do not enter if you have any COVID symptoms. - A mask is optional within the hospital at this time. Patients may have clear liquids (water, carbonated beverages, clear teas, apple juice) until 3 hours prior to surgery with a maximum of 20 ounces. - No food from midnight until time of surgery Take the following medications with a SIP of water the morning of surgery: ___Metoprolol DO NOT STOP ANY OF YOUR OTHER PRESCRIPTION MEDICATIONS PRIOR TO SURGERY ?EXCEPT THE FOLLOWING Medications to discontinue per physician All vitamins and supplements Date to take last kbra___[id number] Jamila stopped her aspirin on 03-22-2024 Please no make-up, nail faroese, hairspray, perfume, deodorant, or body powder the day of surgery. No jewelry (including any body piercings) or valuables the day of surgery, leave them at home. Please take a shower or bath the night before, or the morning of, surgery with an antibacterial soap. Wear comfortable, loose fitting clothing. - Jewelry must be removed prior to entering the operating room. Rings and piercings that are not removed may be cut off. - The hospital will not accept responsibility for valuables. - Please leave all valuables, including medications, at home the day of surgery. If you are going home after surgery, a licensed jitney driver must drive you home. - NO public transportation without another adult if you receive anesthesia. - We recommend that an adult stay with you for 24 hours following discharge. - We also recommend that you do not drive, make important decision, drink alcoholic beverages, or take any drugs that were not prescribed by your health care provider for at least 24 hours after your discharge time. Follow any additional instructions given to you from your surgeon. If you or anyone in your household have experienced Covid symptoms in the past week, please notify your surgeon or the nurse liaison at the phone number below for possible testing. Telephone instructions given to __Melba___and asked if any additional questions and then verbalized understanding. Patient advised to call surgeon office or pre surgery nurse liaison [phone] if any additional questions.
--- NOTE | 2024-03-29 14:47 | PM.IMHP ---
H&P: HPI History of Present Illness Date/Time: 03/29/24 14:47 Chief Complaint: Recurrent sinusitis chronic sinusitis septal deviation Narrative: planned surgical procedure Review of Systems Review of Systems: All systems reviewed & are unremarkable except as noted in HPI and below [facility] Past Medical History Medical History Arthritis Ascending aortic aneurysm 4.2 cm fusiform aneurysm of ascending aorta Chronic low back pain Dyslipidemia Dysphagia Emphysema of lung mild emphysema Environmental allergies Essential (primary) hypertension GERD without esophagitis History of esophageal stricture Multiple sclerosis not affecting current episode of care (~2012) Nasal septal deviation Obstructive sleep apnea (~1989) Osteopenia Vertigo Surgical History Surgical History History of carpal tunnel surgery (~2016) History of cervical spinal surgery (~2014) C4,5,6 fusion History of esophageal dilatation 07/29, 04/27 History of mandibular surgery (~1989) History of nasal septoplasty (~01/2023) Endoscopic assisted septoplasty turbinate reduction Family History Family History Mother Family history of anemia Hypertension Family history of glaucoma Father Family history of malignant neoplasm of kidney Patient's father is Social History Social History Smoking packs per day: 0.5 Smoking cigarettes per day: 10.0 Years smoked: 10 Smoking pack-years: 5.00 Smoking status: Former smoker Tobacco type: cigarettes Smoking end date: 03/26/96 Alcohol intake: current Drinks per week: 1 Alcohol use details: Very little to none Substance use: never Substance use type: does not use Lack of Transportation: No Lack of Food: Never True Current Housing: I Have Housing Concerned About Future Housing: Decline to Answer Difficulty Paying Gas/Electric Bills: Decline to Answer Difficulty Paying for Meds: YES Currently Unemployed: Decline to Answer Education: Decline to Answer Difficulty w/ Childcare or Family Care: No Living arrangements: with family Additional living arrangements comments: [place] Occupation/Education: retired Additional occupation/education comments: [employer] Gender identity (if verbalized by the patient): Female Sexual Orientation (if Verbalized by the Patient): Straight or Heterosexual Spiritual care concerns: No Agree to blood products: Yes Meds Home Medications and Allergies Home Medications Medication Instructions Recorded Confirmed Type multivitamin 1 tablet PO DAILY 11/23/20 03/26/24 History metoprolol succinate 25 mg 25 mg PO QAM 02/15/21 03/26/24 History tablet,extended release 24 hr aspirin 81 mg tablet,delayed 81 mg PO DAILY 11/22/21 03/26/24 History release (Adult Low Dose Aspirin) loratadine 10 mg tablet 10 mg PO DAILY PRN Sinus Symptoms 01/01/23 03/26/24 History magnesium-potassium 40 mg-40 mg 1 cap PO DAILY 01/01/23 03/26/24 History capsule coenzyme Q10 100 mg capsule (Co 100 mg PO DAILY 01/06/23 03/26/24 History Q-10) vitamin E 400 unit tablet 180 mg PO DAILY 01/06/23 03/26/24 History zinc 50 mg capsule 50 mg PO DAILY 01/06/23 03/26/24 History cholecalciferol (vitamin D3) 75 75 mcg PO DAILY 10/07/23 03/26/24 History mcg (3,000 unit) tablet terbinafine HCl 250 mg tablet 250 mg PO DAILY 10/07/23 03/26/24 History triamcinolone acetonide 55 mcg 2 spray intranasal DAILY PRN 10/07/23 03/26/24 History nasal spray aerosol (Nasacort Congestion Allergy) famotidine 20 mg tablet (Pepcid AC) 20 mg PO DAILY 11/20/23 03/26/24 History albuterol sulfate 90 mcg/actuation 1 - 2 puff inhalation Q4-6H PRN 02/09/24 03/26/24 Rx aerosol inhaler shortness of breath or wheezing #8.5 grams montelukast 1
[2024-03-30] VITALS (9 sets, daily range): BP systolic 98–131; BP diastolic 56–93; PULSE 52–68; RESP 14–20; TEMP 36.2–36.7; O2SAT 95–100
--- NOTE | 2024-03-30 06:47 | WPDANESEPPF ---
Anes - Initial Pre Proc Eval Procedure: Operation Date: 03/30/24 08:15 Proposed Procedures p Image Guided Bilateral Maxillary Antrostomy, - Raj Atwood MD s Possible Septoplasty - Raj Atwood MD Date/Time: 03/30/24 06:47 Surgeon: Raj Atwood MD Pre Op Diagnosis: chronic sinusitis Patient Data Age: 68 Gender: F Height: 1.68 m Weight: 88.6 kg Allergies Allergy/AdvReac Type Severity Reaction Status Date / Time gemifloxacin Allergy Severe THROAT & Verified 03/30/24 06:03 TONGUE SWELLING ciprofloxacin Allergy Unknown THROAT & Verified 03/30/24 06:03 TONGUE SWELLING doxycycline Allergy Unknown unknown Verified 03/30/24 06:03 fluticasone Allergy Unknown Tongue Verified 03/30/24 06:03 swelling glatiramer (copolymer 1) Allergy Unknown TONGUE & Verified 03/30/24 06:03 THROAT SWELLING Penicillins Allergy Unknown TONGUE & Verified 03/30/24 06:03 THROAT SWELLING Sulfa (Sulfonamide Allergy Unknown THROAT & Verified 03/30/24 06:03 Antibiotics) TONGUE SWELLING azelastine AdvReac throat Verified 03/30/24 06:03 swell Home Medications Medication Instructions Recorded Confirmed Type multivitamin 1 tablet PO DAILY 11/23/20 03/30/24 History metoprolol succinate 25 mg 25 mg PO QAM 02/15/21 03/30/24 History tablet,extended release 24 hr aspirin 81 mg tablet,delayed 81 mg PO DAILY 11/22/21 03/26/24 History release (Adult Low Dose Aspirin) loratadine 10 mg tablet 10 mg PO DAILY PRN Sinus Symptoms 01/01/23 03/30/24 History magnesium-potassium 40 mg-40 mg 1 cap PO DAILY 01/01/23 03/30/24 History capsule coenzyme Q10 100 mg capsule (Co 100 mg PO DAILY 01/06/23 03/26/24 History Q-10) vitamin E 400 unit tablet 180 mg PO DAILY 01/06/23 03/26/24 History zinc 50 mg capsule 50 mg PO DAILY 01/06/23 03/30/24 History cholecalciferol (vitamin D3) 75 75 mcg PO DAILY 10/07/23 03/30/24 History mcg (3,000 unit) tablet terbinafine HCl 250 mg tablet 250 mg PO DAILY 10/07/23 03/30/24 History triamcinolone acetonide 55 mcg 2 spray intranasal DAILY PRN 10/07/23 03/30/24 History nasal spray aerosol (Nasacort Congestion Allergy) famotidine 20 mg tablet (Pepcid AC) 20 mg PO DAILY 11/20/23 03/30/24 History albuterol sulfate 90 mcg/actuation 1 - 2 puff inhalation Q4-6H PRN 02/09/24 03/30/24 Rx aerosol inhaler shortness of breath or wheezing #8.5 grams montelukast 10 mg tablet 10 mg PO QHS #30 tabs 03/02/24 03/30/24 Rx Patient hx anesthesia problems: none Family hx anesthesia problems: none Results Review: All pre-operative results and documents have been reviewed as part of the pre-operative evaluation. [facility] Past Medical History Medical History Arthritis Ascending aortic aneurysm 4.2 cm fusiform aneurysm of ascending aorta Chronic low back pain Dyslipidemia Dysphagia Emphysema of lung mild emphysema Environmental allergies Essential (primary) hypertension GERD without esophagitis History of esophageal stricture Multiple sclerosis not affecting current episode of care (~2012) Nasal septal deviation Obstructive sleep apnea (~1989) Osteopenia Vertigo Surgical History Surgical History History of carpal tunnel surgery (~2016) History of cervical spinal surgery (~2014) C4,5,6 fusion History of esophageal dilatation 07/29, 04/27 History of mandibular surgery (~1989) History of nasal septoplasty (~01/2023) Endoscopic assisted septoplasty turbinate reduction Family History Family History Mother Family history of anemia Hypertension Family history of glaucoma Father Family history of malignant neoplasm of kidney Patient's father is Social History Social History Smoking packs per day: 0.5 Smoking cigarettes pe
--- NOTE | 2024-03-30 07:17 | WPDHPUPDATE1 ---
History and Physical Update Update Date/Time: 03/30/24 07:17 History and Physical has been reviewed, including an updated exam of the patient. There are NO changes in the patient's condition. Risks, benefits, and alternatives have been discussed and questions answered. Patient agrees to proceed with procedure.
[2024-03-30] MEDS: ACETAMINOPHEN 500 MG TABLET 1000 MG PO (07:42)
[2024-03-30] MEDS: LACTATED RINGERS 1,000 ML 30 ML IV CONT ×2 (07:45→09:38)
[2024-03-30] MEDS: ceFAZolin 2 GM/D5W 50 ML 2 GM/50 ML BAG IVPB (08:35)
[2024-03-30] MEDS: LIDO 1%/EPINEPHRINE 1:100,000 20 ML VIAL 10 ML INFILTRATE (08:53)
[2024-03-30] MEDS: OXYMETAZOLINE HCL 0.05% NAS 15 ML BTL (*BKC) 1 SPRAY NASAL (08:54)
--- NOTE | 2024-03-30 10:44 | P.OP_ITS ---
Procedure Note - Detailed Date of Procedure 03/30/24 Pre-op Diagnosis chronic sinusitis Post-op Diagnosis Same Procedure Performed Bilateral image guided endoscopic maxillary antrostomies Surgeon Raj Atwood MD Anesthesia General Indications see above Findings edematous tissue in the bilateral maxilla left greater than right. Minimal bleeding. No complications Description of Procedure patient identified consent verified preop. Patient brought operating. Time- out performed. General anesthesia induced endotracheal tube secured. Patient prepped draped position procedure confirmed 2nd time-out performed. Image guidance initiated confirmed Afrin-soaked pledgets placed bilaterally for 5 minutes then removed. 0 degree scope utilized adequate access to the bilateral middle meati I turbinates medialized maxillary antrostomies performed bilaterally with double ball-tip probe straight through cut backbiter to remove the uncinate and microdebrider. Great care was taken to ensure that the surgical os connected to the natural os. This was confirmed with curved image guided suction. A ball-tip probe and angled 30 degree scope. At the end of the procedure the bilateral nasal passages were copiously irrigated out. Patient tolerated procedure well no complication blood loss 10 cc. I performed all dictated portion procedure patient taken to PACU after care the patient given back to Anesthesiology. Estimated Blood Loss 10 Drains No Packing No Pathology None sent Complications No immediate complications Condition Stable Disposition PACU [facility] Billing Surgery - Charge Forward: Surgery Billing
== END 2024-03-30 12:00 | disposition home or self-care (01) ==
PROVIDERS: PCP Family Medicine; Visit Provider Otolaryngology
PROC: (CPT 31256; principal; 2024-03-30 08:15)
DX: J32.9 Chronic sinusitis, unspecified (principal); J34.2 Deviated nasal septum; J43.9 Emphysema, unspecified; I71.21 Aneurysm of the ascending aorta, without rupture; E78.5 Hyperlipidemia, unspecified; I10 Essential (primary) hypertension; K21.9 Gastro-esophageal reflux disease without esophagitis; G35 Multiple sclerosis; G47.33 Obstructive sleep apnea (adult) (pediatric); Z98.1 Arthrodesis status; Z79.82 Long term (current) use of aspirin; Z79.51 Long term (current) use of inhaled steroids; Z87.891 Personal history of nicotine dependence; E66.9 Obesity, unspecified; Z68.32 Body mass index [BMI] 32.0-32.9, adult
CPT/HCPCS: 31256; 61782; 93005; A9270; J0690; J2405; J2704; J3010; J7050; J7120

== ENCOUNTER 2024-04-20 13:31 | Outpatient (CLI) | payer MEDICARE, SELFPAY ==
[2024-04-20 19:47] LABS: Alanine Aminotransferase 19 U/L (6-35); Albumin Level 4.2 g/dL (3.5-5.1); Alkaline Phosphatase 78 U/L (38-126); Anion Gap 10 mmol/L (4-12); Aspartate Amino Transferase 36 U/L (14-36); Bilirubin,Total 0.4 mg/dL (0.2-1.3); Blood Urea Nitrogen 13 mg/dL (7-17); Calcium 9.4 mg/dL (8.4-10.2); Carbon Dioxide 27 mmol/L (22-30); Chloride 99 mmol/L (98-107); Cholesterol 220 mg/dL (0-200); Estimated Glomerular Filt Rate > 60; Glucose 87 mg/dL (65-110); HDL Direct 51 mg/dL; Sodium 136 mmol/L (137-145); Triglycerides 116 mg/dL (<150)
[2024-04-20 20:05] LABS: LDL Cholesterol Direct 140 mg/dL
== END 2024-04-20 13:32 | disposition home or self-care (01) ==
PROVIDERS: PCP Family Medicine; Visit Provider Family Medicine
DX: R74.01 Elevation of levels of liver transaminase levels (principal); E78.5 Hyperlipidemia, unspecified
CPT/HCPCS: 36415; 80053; 80061

== ENCOUNTER 2024-05-03 09:49 | Outpatient (CLI) | payer MEDICARE, SELFPAY ==
--- NOTE | ~2024-05-03 | CT_ITS ---
EXAMINATION:CT diagnostic chest wo con DATE: 05/03/2024 10:19 INDICATION: Thoracic aortic ectasia. TECHNIQUE: Computed tomography (CT) of the chest was performed without intravenous contrast. Automate d exposure control and iterative reconstruction technique were employed. The dose-length product (DLP ) was 321.95 mGy-cm. COMPARISON: Chest CT 12/31/2021 FINDINGS: The lungs demonstrate mild atelectasis. There is mild emphysema. There is 3 mm nodule in ri ght middle lobe, likely benign. No pleural effusion. The liver is normal. There are coronary artery c alcifications. No pericardial effusion. There is a 12 mm mass in right adrenal gland without change, likely an adenoma. The aorta measures 3.9 cm at the sinuses of Valsalva, 3.2 cm at the sinotubular ju nction, 4.3 cm at the mid ascending aorta, 3.0 cm at the aortic isthmus, and 2.8 cm in the mid descen ding aorta. There is levoscoliosis of upper thoracic spine and dextroscoliosis of lower thoracic spin e. There are changes of anterior fusion procedure in cervical spine. There is severe thoracic spondyl osis. IMPRESSION: 1. Stable ectasia of ascending aorta measuring 4.3 cm. Reviewed, dictated and finalized at location A.
== END 2024-05-03 09:50 | disposition home or self-care (01) ==
PROVIDERS: PCP Family Medicine; Visit Provider Internal Medicine Cardiovascular Disease
DX: I77.810 Thoracic aortic ectasia (principal)
CPT/HCPCS: 71250

== ENCOUNTER 2024-10-06 15:27 | Outpatient (CLI) | payer OTHER, SELFPAY ==
--- NOTE | ~2024-10-06 | MM_ITS ---
EXAMINATION: MM screening [facility] BI w debbie HISTORY: Screening TECHNIQUE: Craniocaudal and mediolateral oblique 3-D tomosynthesis images were obtained and synthetic 2-D images were generated. CAD analysis was submitted and interpreted. COMPARISON: Comparison to multiple prior studies sequentially, with oldest reviewed study dated 09/29. BREAST PARENCHYMAL COMPOSITION: Not dense: There are scattered areas of fibroglandular density. FINDINGS: There is no evidence of suspicious mass, calcification, or architectural distortion to sugg est malignancy in either breast. There has been no suspicious interval change. IMPRESSION: 1. No mammographic evidence of malignancy. 2. Recommend routine screening mammography in one year. BI-RADS Category 1: Negative Reviewed, dictated and finalized at location A. EMIC SUPPORT ASSISTANT
== END 2024-10-06 15:28 | disposition home or self-care (01) ==
PROVIDERS: PCP Family Medicine; Visit Provider Obstetrics & Gynecology
DX: Z12.31 Encounter for screening mammogram for malignant neoplasm of breast (principal)
CPT/HCPCS: 77063; 77067

== ENCOUNTER 2024-10-12 12:31 | Outpatient (CLI) | payer OTHER, SELFPAY ==
--- OUTSIDE RECORDS SUMMARY | 2024-10-12 12:36 | XMS_ITS | Encounter Summary ---
Author Organization [employer] [facility] Address 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 Gender Identity Not on file Sexual Orientation Not on file documented as of this encounter Plan of Treatment Upcoming Encounters Date Type Department Care Team (Late st Contact Info) Description 01/03/2025 10:00 AM CDT Office Visit [facility] Neurology [address] [place] [address] Moe Alvarado MD [address] [place] [address] documented as of this encounter Visit Diagnoses Not on filedocumented in this encounter Care Teams Cmm Inspector Relationship Specialty Start Date End Date Guy Cast MD [address] [place] [id number] PCP - General Family Practice 07/23/22 documented as of this encounter
--- OUTSIDE RECORDS SUMMARY | 2024-10-12 12:36 | XMS_ITS | Encounter Summary ---
Author Organization [employer] [facility] Address [address] [place] [address] Care Team Providers Care Medical Research Associate Name Role Phone Guy Cast MD Primary Care Provider Encounter Details Date Type Department Care Team (Late st Contact Info) Description 05/25/2002 Outpatient Historical [facility] Women's Health Care [facility] [address] [facility] [address] [facility] [address] [place] [address] Diomedes Gleason Social History Tobacco Use Types Packs/Day Years Used Date Smoking Tobacco: Never Assessed Comments Unknown Sex and Gender Information Value Date Recorded Sex Assigned at Not on file 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 Gender Identity Not on file Sexual Orientation Not on file documented as of this encounter Plan of Treatment Upcoming Encounters Date Type Department Care Team (Late st Contact Info) Description 01/03/2025 10:00 AM CDT Office Visit [facility] Neurology [address] [place] [address] Moe Alvarado MD [address] [place] [address] documented as of this encounter Visit Diagnoses Not on filedocumented in this encounter Care Teams Medical Research Associate Relationship Specialty Start Date End Date Guy Cast MD [address] [place] [id number] PCP - General Family Practice 07/23/22 documented as of this encounter
--- OUTSIDE RECORDS SUMMARY | 2024-10-12 12:36 | XMS_ITS | Referral Summary ---
Author Organization [facility] Address [address] [place] [address] Care Team Providers Care Nail Maker Name Role Phone Guy Cast MD Primary Care Provider Regla Mattson MD Unavailable [phone] Encounters Date Type Department Care Team Description 10/06/2024 Orders Only [facility] [id number] [phone] Regla Mattson MD Encounter for well woman exam with routine gynecological exam; Screening mammogram for breast cancer 10/05/2024 Telephone [facility] [address] [phone] Monie Garcia from Last 3 Months Allergies Active Allergy Reactions Criticality Noted Date Comments Atorvastatin Anaphylaxis High 10/22/2022 Azelastine Shortness of breath High 08/07/2023 Glatiramer Anaphylaxis,Edema High Fluticasone Other (See comments) Low 07/23/2022 Glatiramer (Copolymer 1) Anaphylaxis,Oth er (See comments),Shortness of breath,Swelling High 07/23/2022 Penicillins Anaphylaxis,Shortnes s of breath,Swelling High 04/03/2011 Sulfa (Sulfonamide Antibiotics) Anaphylaxis High 04/03/2011 Dimethyl Fumarate Unknown 01/14/2017 Medications cholecalciferol (VITAMIN D3) 400 unit capsule take 1 by Oral route once 0 0 5 Active zinc gluconate 30 mg tablet Take 30 mg by mouth daily Active coenzyme Q10 10 mg capsule Take 1 capsule (10 mg total) by mouth daily Active aspirin 81 mg enteric coated tabletIndication s:Thoracic aortic ectasia (CMS/HCC) (HCC) Take 1 tablet (81 mg total) by mouth daily 30 tablet 11 1 Active POTASSIUM CHLORIDE ORAL Take by mouth OTC not script Active terbinafine (LamiSIL) 250 mg tablet Take 1 tablet (250 mg total) by mouth daily 1 Active montelukast (SINGULAIR) 10 mg tablet Take 1 tablet (10 mg total) by mouth nightly at bedtime 2 Active albuterol HFA (PROVENTIL HFA,VENTOLIN HFA,PROAIR HFA) 90 mcg/actuation inhaler INHALE 1 TO 2 PUFFS BY MOUTH EVERY 4 TO 6 HOURS NEEDED FOR SHORTNESS OF BREATH OR WHEEZING 2 Active multivitamin capsule Take 1 capsule by mouth Active omeprazole 20 mg tablet,delayed release (DR/EC) 9 Active Lactobacillus acidophilus 10 billion cell capsule Take 1 capsule by mouth daily Active metoprolol XL (TOPROL-XL) 25 mg extended release tabletIndication s:Thoracic aortic ectasia (CMS/HCC) (HCC) TAKE 1 TABLET(25 MG) BY MOUTH DAILY 90 tablet 3 4 Active evolocumab (Repatha SureClick) 140 mg/mL pen injector Inject 1 mL (140 mg total) under the skin every 14 (fourteen) days 2 mL 11 4 Active Active Problems Problem Noted Date Diagnosed Date Pulmonary nodule 03/27/2022 KAYLEY (obstructive sleep apnea) 07/13/2019 Carpal tunnel syndrome 08/19/2017 MS (multiple sclerosis) 06/09/2017 Optic neuritis 10/17/2015 Thoracic aortic ectasia (CMS/HCC) 01/12/2015 Overview (12/12/2016): Ascending aorta enlargement Hypercholesteremia 01/12/2015 Overview (12/12/2016): High cholesterol Taking multiple medications for chronic disease 11/07/2014 Abnormal gait 05/10/2014 Numbness 10/27/2013 Social History Tobacco Use Types Packs/Day Years Used Date Smoking Tobacco: Former Cigarettes Passive Smoke Exposure: Past Smokeless Tobacco: Never Tobacco Cessation:Counseling Given: Not Answered Comments No Sex and Gender Information Value Date Recorded Sex Assigned at Not on file Legal Sex Female 11:27 PM LOGISTICS SUPPORT Gender Identity Not on file Sexual Orientation Not on file Last Filed Vital Signs Vital Sign Reading Time Taken Comments Blood Pressure 130/84 06/04/2024 8:01 AM CDT Pulse 77 06/04/2024 8:01 AM CDT Temperature - - Respiratory Rate 16 06/09/2017 8:34 AM CDT Oxygen Saturation 97% 06/04/2024 8:01 AM CDT Inhaled Oxygen Concentration - - Weight 90.7 kg (200 lb) 06/04/2024 8:01 AM CDT Height 170.2 cm (5' 7 ) 06/04/2024 8:01 AM CDT Body Mass Index 31.32 06/04/2024 8:01 AM CDT Plan of Treatment Not on file Medical Devices Implanted Type Area Blanket Inspector Device Identifier Shelf Expiration Date Model / Serial / Lot Hardware Spine Cervical Hardware Mandible Hardware Right: Toes Procedures Procedure Name Priority Date/Time Associated Diagnosis Comments SCREENING MAMMOGRAM BILATERAL W NUZHAT Schedule Routine, Read Routine (OP Routine) 03/26/2022 from Last 3 Months or Most Recently Relevant to Health Maintenance Results * Screening Mammogram Bilateral W [place] (03/26/2022) Anatomical Region Laterality Modality Breast Bilateral Mammography Historical Provider MD [facility]ED[facility] Chika l Result from Last 3 Months or Most Recently Relevant to Health Maintenance Insurance MEDICARE [facility] Address: [address] [address] [place] [address] MEDICARE [facility] MEDICARE [facility] Address: [address] [address] [place] [address] MEDICARE [facility] Address: [facility] [address] [place] [address] Care Teams Nail Maker Relationship Specialty Start Date End Date Guy Cast MD PCP - General Family Practice 07/25/20 [place] [address] [place] [address] Consulting Physician Obstetrics and Gynecology 11/25/21
--- OUTSIDE RECORDS SUMMARY | 2024-10-12 12:36 | XMS_ITS | Clinical Summary ---
Author Organization [facility] Address [address] [place] [address] Care Team Providers Care Counter Helper Name Role Phone Guy Csat MD Primary Care Provider Source Comments [facility],non-owned Affiliates and Associated Physician Practices is amultiple site organization consisting of ambulatory clinics and hospital sitesin [place], [place], [place] and [place]. This disclosure is being madepursuant to the Care Everywhere program and may not contain all information available regarding this patient. Last updated 18.[facility] Allergies Active Allergy Reactions Criticality Noted Date Comments Penicillins Anaphylaxis High 04/03/2011 Sulfa Drugs Anaphylaxis High 04/03/2011 Medications * Be aware that medications may not be up to date on this document. Alwaysverify current medications with the patient. Medication Sig Dispensed Refills Start Date End Date Status multivitamin daily (THERAGRAN) tablet Take 1 Tab by mouth daily with food. Active [id number] C-VIT D PO Take by mouth. Active Chlorpheniramine-Phenyl ephrine (PD-HIST D PO) Take by mouth once daily as needed. Active Active Problems Problem Noted Date Diagnosed Date Liver injury, laceration 04/04/2011 Rib fracture 04/04/2011 Contusion shoulder/arm 04/04/2011 Contusion, knee 04/04/2011 Contusion, hip 04/04/2011 Social History Tobacco Use Types Packs/Day Years Used Date Smoking Tobacco: Former Cigarettes Q uit: 01/02/1997 Alcohol Use Standard Drinks/Week Comments No 0 (1 standard drink = 0.6 oz pur e alcohol) Sex and Gender Information Value Date Recorded Sex Assigned at Not on file Gender Identity Not on file Sexual Orientation Not on file Last Filed Vital Signs Vital Sign Reading Time Taken Comments Blood Pressure 120/77 07/21/2013 12:21 PM PREPARATION ROOM MANAGER Pulse 69 07/21/2013 12:21 PM PREPARATION ROOM MANAGER Temperature 36.4 ??C (97.5 ??F) 04/07/2011 7:58 AM CD T Respiratory Rate 18 04/07/2011 10:30 AM CDT Oxygen Saturation 100% 04/07/2011 10:30 AM CDT Inhaled Oxygen Concentration - - Weight 60.3 kg (132 lb 15 oz) 04/07/2011 4:33 AM CDT Height 165.1 cm (5' 5 ) 04/03/2011 9:27 PM CDT Body Mass Index 22.12 04/03/2011 9:27 PM CDT Plan of Treatment Health Maintenance Due Date Last Done Comments BONE DENSITY TESTING 1955 COLOGUARD (AGES 45-75) - COL ON CA SCREENING 1956 COLON MONITORING 1956 COLONOSCOPY - COLON CA SCREENING 1956 CT COLONOGRAPHY - COLON CA SCREENING 1955 Colorectal Cancer Screening 1956 FIT - COLON CA SCREENING 1956 FLEX SIG - COLON CA SCREENING 1956 LIPID TESTING 1956 MAMMOGRAM 1956 HEPATITIS C SCREENING 12/15/1974 DTAP/TDAP/TD VACCINES (1 - Tdap) 12/20/1975 PNEUMOCOCCAL VACCINE 50+ (1 of 1 - PCV) 2006 ZOSTER VACCINE (1 of 2) 2006 COVID-19 VACCINE ( - 2023-2 5 season) 2024 INFLUENZA VACCINE (#1) 2024 DEPRESSION SCREENING 09/08/2024 MEDICARE AWV ? CALENDAR YEAR 2024 Respiratory Syncytial Virus (RSV) Vaccine Pt: or over 60 yrs (1 - 1-dose 75+ series) 12/20/2031 HEPATITIS B VACCINE Aged Out No longe r eligible based on patient's age to complete this topic HIB VACCINE Aged Out No longer eligi ble based on patient's age to complete this topic HPV VACCINE Aged Out No longer eligi ble based on patient's age to complete this topic MENINGOCOCCAL (Group B) VACCINE Aged Out No longer eligible based on patient's age to complete this topic MENINGOCOCCAL VACCINE Aged Out No han alicia eligible based on patient's age to complete this topic Advance Directives Documents on File Type Date Recorded 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
--- OUTSIDE RECORDS SUMMARY | 2024-10-12 12:36 | XMS_ITS | Clinical Summary ---
Author Organization [facility] Address [address] [place] [address] Care Team Providers Care Sweep Press Operator Name Role Phone Guy Cast MD Primary Care Provider Allergies Active Allergy Reactions Criticality Noted Date Comments Atorvastatin Anaphylaxis High 10/22/2022 Azelastine Shortness of Breath/Wheezing High 08/07/2023 Dimethyl Fumarate Unknown 01/14/2017 Fluticasone Other (See Comments) 07/23/2022 Glatiramer (Copolymer 1) Anaphylaxis,Oth er (See Comments),Shortness of Breath/Wheezing,Swelling High 07/23/2022 Penicillins Anaphylaxis,Shortnes s of Breath/Wheezing,Swelling High 04/03/2011 Sulfa (Sulfonamide Antibiotics) Anaphylaxis High 04/03/2011 Medications Zinc Gluconate 30 mg Tablet Take 30 mg by mouth daily. Active coenzyme Q10 Capsule Take 10 mg by mouth daily. Active terbinafine HCL (LamISIL) 250 mg tablet Take 250 mg by mouth daily. 1 Active montelukast (SINGULAIR) 10 mg tablet Take 10 mg by mouth daily at bedtime. 2 Active metoprolol succinate (TOPROL XL) 25 mg Extended Release 24 hour tablet Take 25 mg by mouth daily. 2 Active aspirin (ECOTRIN EC) 81 mg Tablet, Delayed Release (E.C.) Take 81 mg by mouth daily. 1 Active albuterol sulfate 90 mcg/Actuation inhaler INHALE 1 TO 2 PUFFS BY MOUTH EVERY 4 TO 6 HOURS NEEDED FOR SHORTNESS OF BREATH OR WHEEZING 2 Active POTASSIUM CHLORIDE ORAL Take by mouth. A ctive Multivitamin Capsule Take 1 Tablet by mouth. Active cholecalcifero l, Vitamin D3, 50 mcg (2,000 unit) Tablet Take 2,000 Units by mouth daily. Active semaglutide (Ozempic) 2 mg/dose (8 mg/3 mL) Pen Injector Take 2 mg by mouth every 7 days. 3 Active triamcinolone acetonide (Nasacort) 55 mcg nasal spray Administer 2 Sprays in each nostril see administration instructions. prn Active EPINEPHrine (EpiPen) 0.3 mg/0.3 mL Auto-Injector Inject 0.3 mg by subcutaneous injection one time only. 3 Active diphenhydrAMIN E (Benadryl Allergy) 25 mg tablet Take 25 mg by mouth every 6 hours as needed. Active Active Problems Problem Noted Date Diagnosed Date Pulmonary nodule 03/27/2022 KAYLEY (obstructive sleep apnea) 07/13/2019 Carpal tunnel syndrome 08/19/2017 MS (multiple sclerosis) 06/09/2017 Optic neuritis 10/17/2015 Hypercholesteremia 01/12/2015 Overview (05/06/2024): High cholesterol Thoracic aortic ectasia 01/12/2015 Overview (05/06/2024): Ascending aorta enlargement Taking multiple medications for chronic disease 11/07/2014 Abnormal gait 05/10/2014 Numbness 10/27/2013 Contusion, hip 04/04/2011 Laceration of liver 04/04/2011 Rib fracture 04/04/2011 Encounters Date Type Department Care Team Description 09/29/2024 External Device Data ST[facility] ABSTRACTION Provider, Abstract 09/28/2024 External Device Data [facility] ABSTRACTION Provider, Abstract 09/21/2024 External Device Data [facility] ABSTRACTION Provider, Abstract from Last 3 Months Family History Medical History Relation Name Comments Hypertension Mother Elvira Worley Relation Name Status Comments Mother Elvira Worley Social History Tobacco Use Types Packs/Day Years Used Date Smoking Tobacco: Former Cigarettes Q uit: 09/11/1996 Smokeless Tobacco: Never Comments:Smoked the low tar and nicotine Alcohol Use Standard Drinks/Week Comments Yes 0 (1 standard drink = 0.6 oz pur e alcohol) less than 2 times a month Comments Unknown Sex and Gender Information Value Date Recorded Sex Assigned at Not on file Legal Sex Female 4:16 AM STATUS CONTROLLER Gender Identity Not on file Sexual Orientation Not on file Last Filed Vital Signs Vital Sign Reading Time Taken Comments Blood Pressure 116/74 05/06/2024 10:31 AM CDT Pulse 77 05/06/2024 10:31 AM CDT Temperature - - Respiratory Rate - - Oxygen Saturation - - Inhaled Oxygen Concentration - - Weight 90.7 kg (200 lb) 05/06/2024 10:31 AM CDT Height 167.6 cm (5' 6 ) 05/06/2024 10:31 AM CDT Body Mass Index 32.28 05/06/2024 10:31 AM CDT Plan of Treatment Upcoming Encounters Date Type Department Care Team (Late st Contact Info) Description 01/03/2025 10:00 AM CDT Office Visit [facility] Neu[facility] [address] [place] [address] Moe Alvarado MD [address] [place] [address] Health Maintenance Due Date Last Done Comments Pre-Diabetes and Diabetes Screening 1956 DTAP/TDAP/TD VACCINES (1 - Tdap) 12/20/1975 BREAST CANCER SCREENING 1996 COLORECTAL SCREENING 2001 Colorectal Cancer Screening 2001 FIT-DNA Q 3 years 2001 FIT/FOBT Q 1 year 2001 Flex Sig/CT Colonography Q 5 years 2001 PNEUMOCOCCAL VACCINE 65+ YEARS (1 of 1 - PCV) 12/20/19 07 ZOSTER VACCINE (1 of 2) 2006 RSV VACCINE (60+ or ) (1 - Risk 60-74 years 1-dose series) 2016 OSTEOPOROSIS SCREENING 2021 INFLUENZA VACCINE (#1) 2024 Insurance [facility] [id number] Care Teams Sweep Press Operator Relationship Specialty Start Date End Date Guy Cast MD [address] [place] [id number] PCP - General Family Practice 07/23/22
--- OUTSIDE RECORDS SUMMARY | 2024-10-12 12:36 | XMS_ITS | Referral Summary ---
Author Organization [facility] Address [address] [place] [address] Care Team Providers Care Chamber Worker Name Role Phone Guy Cast MD Primary Care Provider Source Comments [facility],non-owned Affiliates and Associated Physician Practices is amultiple site organization consisting of ambulatory clinics and hospital sitesin [place], [place], [place] and [place]. This disclosure is being madepursuant to the Care Everywhere program and may not contain all information available regarding this patient. Last updated 18.[facility] Allergies Active Allergy Reactions Criticality Noted Date Comments Penicillins Anaphylaxis High 04/03/2011 Sulfa Drugs Anaphylaxis High 04/03/2011 Medications * Be aware that medications may not be up to date on this document. Alwaysverify current medications with the patient. Medication Sig Dispensed Refills Start Date End Date Status multivitamin daily (THERAGRAN) tablet Take 1 Tab by mouth daily with food. Active [id number] C-VIT D PO Take by mouth. Active [...] Comments Blood Pressure 120/77 07/21/2013 12:21 PM CHURNER Pulse 69 07/21/2013 12:21 PM [facility]NER Temperature 36.4 ??C (97.5 ??F) 04/07/2011 7:58 AM CD T Respiratory Rate 18 04/07/2011 10:30 AM CDT Oxygen Saturation 100% 04/07/2011 10:30 AM CDT Inhaled Oxygen Concentration - - Weight 60.3 kg (132 lb 15 oz) 04/07/2011 4:33 AM CDT Height 165.1 cm (5' 5 ) 04/03/2011 9:27 PM CDT Body Mass Index 22.12 04/03/2011 9:27 PM CDT Plan of Treatment Not on file Advance Directives Documents on File Type Date Recorded Patient Business Development Expl anation Adv Directive/Living Will/POA 04/08/2011 12:02 PM * FULL RESUSCITATION (Latest Code Status on File) Date Activated Date Inactivated Comments 04/03/2011 9:36 PM 04/07/2011 11:05 PM Care Teams Chamber Worker Relationship Specialty Start Date End Date Guy Cast MD [address] [place] [address] PCP - General 06/20/21
--- OUTSIDE RECORDS SUMMARY | 2024-10-12 12:36 | XMS_ITS | Patient Health Summary ---
Author Organization [facility] Address [address] [place] [address] Care Team Providers Care Hat Ironer Name Role Phone Guy Cast MD Primary Care Provider Note from [facility] [place],non-owned Affiliates and Associated Physician Practices is amultiple site organization consisting of ambulatory clinics and hospital sitesin [place], [place] and [place]. This disclosure is being madepursuant to the Care Everywhere program and may not contain all information available regarding this patient. Last updated 18.[facility] Allergies * Penicillins(Anaphylaxis) -High Criticality * Sulfa Drugs(Anaphylaxis) -High Criticality Medications * Be aware that medications may not be up to date on this document. Alwaysverify current medications with the patient. * multivitamin daily (THERAGRAN) tablet Take 1 Tab by mouth daily with food. * [id number]-[id number]-WVE C-VIT D PO Take by mouth. * Chlorpheniramine-Phenylephrine (PD-HIST D PO) Take by mouth once daily as needed. Active Problems Problem Noted Date Diagnosed Date [...] Comments Blood Pressure 120/77 07/21/2013 12:21 PM TOOL TROUBLE SHOOTER Pulse 69 07/21/2013 12:21 PM TOOL TROUBLE SHOOTER Temperature 36.4 ??C (97.5 ??F) 04/07/2011 7:58 AM CD T Respiratory Rate 18 04/07/2011 10:30 AM CDT Oxygen Saturation 100% 04/07/2011 10:30 AM CDT Inhaled Oxygen Concentration - - Weight 60.3 kg (132 lb 15 oz) 04/07/2011 4:33 AM CDT Height 165.1 cm (5' 5 ) 04/03/2011 9:27 PM CDT Body Mass Index 22.12 04/03/2011 9:27 PM CDT Procedures * URINALYSIS AUTO - POINT OF CARE (AMB) [facility](Performed 07/21/2013) * OSMOLALITY URINE(Performed 04/29/2012) * RENAL FUNCTION PANEL(Performed 04/29/2012) * LAB HISTORICAL RESULTS-ONBASE(Performed 01/24/2012) * LAB HISTORICAL RESULTS-ONBASE(Performed 01/24/2012) * CARDIAC RHYTHM STRIP ORDER(Performed 04/08/2011) * HGB HCT PANEL(Performed 04/05/2011) * XR STERNUM 2VW OR MORE(Performed 04/04/2011) Performed for Blunt chest trauma * XR RIBS BILAT 3VW(Performed 04/04/2011) Performed for Rib fracture * XR SHOULDER RIGHT 2VW OR MORE(Performed 04/04/2011) Performed for Contusion * XR KNEE RIGHT 4VW OR MORE(Performed 04/04/2011) Performed for Contusion * HGB HCT PANEL(Performed 04/04/2011) * HGB HCT PANEL(Performed 04/04/2011) * HGB HCT PANEL(Performed 04/04/2011) * HGB HCT PANEL(Performed 04/04/2011) * HGB HCT PANEL(Performed 04/03/2011) * XR HIP RIGHT 2VW OR MORE(Performed 04/03/2011) * XR LUMBAR SPINE 2 OR 3VW(Performed 04/03/2011) * XR PELVIS 1 OR 2VW(Performed 04/03/2011) * XR THORACIC SPINE 2VW(Performed 04/03/2011) * CT CHEST ABDOMEN PELVIS W CONT(Performed 04/03/2011) * TYPE + SCREEN PANEL(Performed 04/03/2011) * PT-INR(Performed 04/03/2011) * COMPREHENSIVE METABOLIC PANEL(Performed 04/03/2011) * CBC W AUTO DIFFERENTIAL(Performed 04/03/2011) * XR CHEST 1VW PORTABLE(Performed 04/03/2011) * GROSS + MICRO EXAM(Performed 05/27/2002) * GROSS + MICRO EXAM(Performed 05/08/2000) * URINALYSIS - POINT OF CARE (AMB) [facility](Performed 09/08/1998) Results * URINALYSIS AUTO - POINT OF CARE (AMB) [facility] (07/21/2013) Glucose UA neg [facility] Bilirubin UA POCT neg [facility] Ketones UA POCT neg [facility] Specific [place] UA 1.010 [facility] Blood Urine POCT neg [facility] pH UA 6.0 [facility] Protein UA neg [facility] Urobilinogen UA 3.5 [facility] Nitrite UA neg [facility] WBC UA neg [facility] Urine specimen (specimen) 07/21/2013 Yovany Alvarez MD LAB - POINT OF CARE ORDERABLES [facility] * (ABNORMAL) RENAL FUNCTION PANEL (04/29/2012 1:16 PM CDT) BUN 16 7 - 26 mg/dL [facility] Creatinine 0.6 0.6 - 1.2 mg/dL [facility] eGFR by MDRD > 60 ML/MIN [facility] Comment: Chronic kidney disease: ??<60 ml/min Kidney failure: ?<15 ml/min Based on BSA of 1.73m2. Sodium 141 136 - 145 mmol/L [facility] Potassium 4.5 3.5 - 4.5 mmol/L [facility] Chloride 104 98 - 107 mmol/L [facility] CO2 26 22 - 29 mmol/L [facility] Glucose 89 70 - 115 mg/dL [facility] Calcium 10.4(H) 8.4 - 10.2 mg/dL [facility] Phosphorus 3.3 2.3 - 4.7 mg/dL [facility] Albumin 4.1 3.4 - 5.0 g/dL [facility] Anion Gap 16 8 - 18 [facility] BUN/Creatinine Ratio 26(H) 7 - 23 [facility] Osmolality Calculation 276 270 - 300 mOsm/kg [facility] 04/29/2012 1:16 PM CDT 04/29/2012 1:58 PM CDT Jessica Ramirez LAB - CHEMISTRY [place] Performing Organization Address [facility]/ZIP Co de Phone Number [address] [phone] * (ABNORMAL) OSMOLALITY URINE (04/29/2012 1:16 PM CDT) Osmolality Urine 210(L) 500 - 800 MOSM/KG [facility] 04/29/2012 1:16 PM CDT 04/29/2012 1:58 PM CDT Jessica Ramirez LAB - URINE CHEMISTR Y ORDERABLES Performing Organization Address [facility] Co de Phone Number [address] [phone] * LAB HISTORICAL RESULTS-ONBASE (01/24/2012) Only the most recent of2 resultswithin the time period is included. 01/24/2012 Narrative [facility] - 07/15/2013 9:20 AM TOOL TROUBLE SHOOTER Historical Provider LAB - CHEMISTRY O RDERABLES Performing Organization Address [facility]/ZIP Co de Phone Number [facility] [address] * CARDIAC RHYTHM STRIP ORDER (04/08/2011 3:48 PM CDT) Narrative Procedure Note Document, Scanned - 04/08/2011 3:48 PM CDT Scanned Document CARDIAC SERVICES ORD ERABLES * HGB HCT PANEL (04/05/2011 11:00 AM CDT) Only the most recent of6 resultswithin the time period is included. Hemoglobin 13.3 12.0 - 16.0 gm/dl [facility] Hematocrit 39.1 36.0 - 48.0 % [facility] BLOOD SPECIMEN / Unknown 04/05/2011 11:00 AM CDT 04/05/2011 11:59 AM CDT Wilman Mason MD LAB - HEMATOLOGY O RDERABLES [facility] [address] [place] [place] [id number] * XR STERNUM 2+ VW (04/04/2011 7:26 PM CDT) Anatomical Region Laterality Modality Chest Radiographic Adalgisa ging 04/04/2011 8:20 PM CDT Impressions 04/04/2011 8:28 PM CDT No evidence of acute bony injury. Narrative 04/04/2011 8:28 PM CDT STERNUM FROM 04/04/2011 INDICATION: Trauma with injury. Pain in the sternum. FINDINGS: Lateral and oblique radiographs of the sternum were obtained. There is no evidence of a fracture or other bony abnormality. ??The retrosternal space is clear. Procedure Note Noel Becerril MD - 04/04/2011 STERNUM FROM 04/04/2011 INDICATION: Trauma with injury. Pain in the sternum. FINDINGS: Lateral and oblique radiographs of the sternum were obtained. There is no evidence of a fracture or other bony abnormality. The retrosternal space is clear. IMPRESSION No evidence of acute bony injury. Wilman Mason MD DIAGNOSTIC IMAGING ORDERABLES * XR RIBS BILATERAL 3 VW (04/04/2011 7:26 PM CDT) Anatomical Region Laterality Modality Chest Radiographic Adalgisa ging 04/04/2011 8:19 PM CDT Impressions 04/04/2011 8:28 PM CDT No evidence of acute bony injury. Narrative 04/04/2011 8:28 PM CDT BILATERAL RIBS FROM 04/04/2011 INDICATION: Trauma with injury. Bilateral rib pain. FINDINGS: Radiographs of the ribs were obtained in AP and oblique projections bilaterally. There is no evidence of a fracture or other bony abnormality. No evidence of a pneumothorax or pleural effusion. Procedure Note Noel Becerril MD - 04/04/2011 BILATERAL RIBS FROM 04/04/2011 INDICATION: Trauma with injury. Bilateral rib pain. FINDINGS: Radiographs of the ribs were obtained in AP and oblique projections bilaterally. There is no evidence of a fracture or other bony abnormality. No evidence of a pneumothorax or pleural effusion. IMPRESSION No evidence of acute bony injury. Wilman Mason MD DIAGNOSTIC IMAGING ORDERABLES * XR SHOULDER 2+ VW RIGHT (04/04/2011 7:25 PM CDT) Anatomical Region Laterality Modality Upper Extremity Radiographic Adalgisa ging 04/04/2011 8:18 PM CDT Impressions 04/04/2011 8:28 PM CDT No evidence of acute bony injury. Narrative 04/04/2011 8:28 PM CDT RIGHT SHOULDER FROM 04/04/2011 INDICATION: Trauma with injury. Right shoulder pain. FINDINGS: Radiographs of the right shoulder were obtained in three projections. There is no evidence of a fracture, dislocation, or other bony abnormality. ??The soft tissues appear normal. Procedure Note Noel Becerril MD - 04/04/2011 RIGHT SHOULDER FROM 04/04/2011 INDICATION: Trauma with injury. Right shoulder pain. FINDINGS: Radiographs of the right shoulder were obtained in three projections. There is no evidence of a fracture, dislocation, or other bony abnormality. The soft tissues appear normal. IMPRESSION No evidence of acute bony injury. Wilman Mason MD DIAGNOSTIC IMAGING ORDERABLES * XR KNEE 4+ VW RIGHT (04/04/2011 7:25 PM CDT) Anatomical Region Laterality Modality Lower Extremity Radiographic Adalgisa ging 04/04/2011 8:21 PM CDT Impressions 04/04/2011 8:28 PM CDT 1. No evidence of acute bony injury. 2. Possible small joint effusion. Narrative 04/04/2011 8:28 PM CDT RIGHT KNEE FROM 04/04/2011 INDICATION: Trauma with injury. Right knee pain. FINDINGS: Radiographs of the right knee were obtained in AP, lateral, and both oblique projections. There is no evidence of a fracture or dislocation. The joint spaces are preserved. ??A small joint effusion cannot be excluded. Procedure Note Noel Becerril MD - 04/04/2011 RIGHT KNEE FROM 04/04/2011 INDICATION: Trauma with injury. Right knee pain. FINDINGS: Radiographs of the right knee were obtained in AP, lateral, and both oblique projections. There is no evidence of a fracture or dislocation. The joint spaces are preserved. A small joint effusion cannot be excluded. IMPRESSION 1. No evidence of acute bony injury. 2. Possible small joint effusion. Wilman Mason MD DIAGNOSTIC IMAGING ORDERABLES * XR HIP 2+ VW RIGHT (04/03/2011 6:39 PM CDT) Anatomical Region Laterality Modality Pelvis, Lower Extremity Radiogra phic Imaging 04/03/2011 6:49 PM CDT Narrative 04/03/2011 6:49 PM CDT Two views right hip INDICATION: Right hip pain FINDINGS: There is no evidence of acute fracture or malalignment Procedure Note Eugene Luu MD - 04/03/2011 Two views right hip INDICATION: Right hip pain FINDINGS: There is no evidence of acute fracture or malalignment Tai Aleman MD DIAGNOSTIC IMAGIN G ORDERABLES * XR LUMBAR SPINE 2 OR 3 VW (04/03/2011 6:38 PM CDT) Anatomical Region Laterality Modality Spine Radiographic Adalgisa ging 04/03/2011 6:49 PM CDT Addenda This result is currently undergoing an addendum. Addendum by Eugene Luu MD on 06/26/2011 8:16 AM CDT Three views lumbar spine CLINICAL INDICATION: Severe low back pain FINDINGS: There is severe bilateral facet arthropathy at L5-S1. There is moderate bilateral facet arthropathy at L4-L5. There is osteopenia. There is no acute fracture or subluxation. Narrative 04/03/2011 6:49 PM CDT Two views right hip INDICATION: Right hip pain FINDINGS: There is no evidence of acute fracture or malalignment Procedure Note Eugene Luu MD - 04/03/2011 Two views right hip INDICATION: Right hip pain FINDINGS: There is no evidence of acute fracture or malalignment Tai Aleman MD DIAGNOSTIC IMAGIN G ORDERABLES * XR PELVIS 1 OR 2 VW (04/03/2011 6:38 PM CDT) Anatomical Region Laterality Modality Pelvis Radiographic Adalgisa ging 04/03/2011 6:40 PM CDT Narrative 04/03/2011 6:40 PM CDT AP pelvis INDICATION: Pelvic pain FINDINGS: There is no acute fracture or malalignment. Procedure Note Eugene Luu MD - 04/03/2011 AP pelvis INDICATION: Pelvic pain FINDINGS: There is no acute fracture or malalignment. Tai Aleman MD DIAGNOSTIC IMAGIN G ORDERABLES * XR THORACIC SPINE 2 VW (04/03/2011 6:37 PM CDT) Anatomical Region Laterality Modality Spine Radiographic Adalgisa ging 04/03/2011 6:40 PM CDT Narrative 04/03/2011 6:40 PM CDT Three views thoracic spine INDICATION: Mid back pain FINDINGS: There is thoracolumbar scoliosis. No acute fracture or subluxation Procedure Note Eguene Luu MD - 04/03/2011 Three views thoracic spine INDICATION: Mid back pain FINDINGS: There is thoracolumbar scoliosis. No acute fracture or subluxation Tai Aleman MD DIAGNOSTIC IMAGIN G ORDERABLES * CT THORAX ABDOMEN PELVIS W CONT (04/03/2011 5:51 PM CDT) Anatomical Region Laterality Modality Chest, Abdomen, Pelvis Computed Tomography 04/03/2011 6:09 PM CDT Impressions 04/03/2011 6:09 PM CDT Nondisplaced lateral right fifth rib fracture. Low-grade liver laceration Mild perihepatic free fluid Ascending thoracic aortic aneurysm Narrative 04/03/2011 6:[address] thorax with contrast CT abdomen with contrast CT pelvis with contrast INDICATION: Chest pain, abdominal pain, pelvic pain, trauma and injury Technique: Axial CT imaging from the lung apices through the pubic symphysis was performed following oral and 100 mL Omnipaque 350 intravenous contrast administration. FINDINGS: Chest: There is a nondisplaced lateral right fifth rib fracture. No other rib fractures are identified. The lungs are clear. No pneumothorax. No pleural effusion. The heart size is normal. There is a 4 cm ascending thoracic aortic aneurysm. No pericardial effusion. Abdomen and pelvis: There is a linear hypodensity located just superior to the falciform ligament compatible with a low-grade liver laceration. There is a mild amount of perihepatic free fluid. The spleen, gallbladder, kidneys, adrenal glands, and pancreas are unremarkable. The bowel loops are normal in caliber. The appendix is not clearly seen. Pelvic organs are unremarkable. There is facet arthropathy in the lower lumbar spine. Procedure Note Eugene Luu MD - 04/03/[address] thorax with contrast CT abdomen with contrast CT pelvis with contrast INDICATION: Chest pain, abdominal pain, pelvic pain, trauma and injury Technique: Axial CT imaging from the lung apices through the pubic symphysis was performed following oral and 100 mL Omnipaque 350 intravenous contrast administration. FINDINGS: Chest: There is a nondisplaced lateral right fifth rib fracture. No other rib fractures are identified. The lungs are clear. No pneumothorax. No pleural effusion. The heart size is normal. There is a 4 cm ascending thoracic aortic aneurysm. No pericardial effusion. Abdomen and pelvis: There is a linear hypodensity located just superior to the falciform ligament compatible with a low-grade liver laceration. There is a mild amount of perihepatic free fluid. The spleen, gallbladder, kidneys, adrenal glands, and pancreas are unremarkable. The bowel loops are normal in caliber. The appendix is not clearly seen. Pelvic organs are unremarkable. There is facet arthropathy in the lower lumbar spine. IMPRESSION Nondisplaced lateral right fifth rib fracture. Low-grade liver laceration Mild perihepatic free fluid Ascending thoracic aortic aneurysm Tai Aleman MD CT ORDERABLES * TYPE + SCREEN PANEL (04/03/2011 5:15 PM CDT) ABO Rh O Pos [facility] Antibody Screen Neg Negative [facility] BLOOD SPECIMEN / Unknown 04/03/2011 5:15 PM CDT 04/03/2011 5:23 PM CDT Tai Aleman MD LAB - BLOOD BANK ORDERABLES Performing Organization Address [facility] Co de Phone Number [facility] [address] [place] [address] * PT-INR (04/03/2011 5:15 PM CDT) Pathologist [facility] PT 10.1 9.4 - 11.2 seconds [facility] INR 1.0 SEE BELOW [facility] Comment: 0.9-1.1 Normal 2.0-3.0 Conventional 2.5-3.5 Intensive BLOOD SPECIMEN / Unknown 04/03/2011 5:15 PM CDT 04/03/2011 5:23 PM CDT Tai Aleman MD LAB - COAGULATION ORDERABLES Performing Organization Address [facility] Co de Phone Number [facility] [address] [place] [address] * (ABNORMAL) CBC W AUTO DIFFERENTIAL (04/03/2011 5:15 PM CDT) WBC 11.3(H) 4.5 - 11.0 1000/mm3 [facility] RBC 4.68 4.2 - 5.4 10X6 [facility] Hemoglobin 14.1 12.0 - 16.0 gm/dl [facility] Hematocrit 41.3 36.0 - 48.0 % [facility] MCV 88.2 80.0 - 99.0 fl [facility] MCH 30.1 25.0 - 31.0 pg [facility] MCHC 34.1 32.0 - 36.0 gm/dl [facility] RDW 13.2 11.5 - 14.5 % [facility] Platelet Count 305 130.0 - 400.0 1000/mm3 [facility] Granulocytes % 59.7 40.0 - 70.0 % [facility] Lymphocytes % 33.1 22.0 - 40.0 % [facility] Monocytes % 5.2 2.0 - 10.0 % [facility] Eosinophils % 1.7 0.0 - 6.0 % [facility] Basophils % 0.3 0.0 - 3.0 % [facility] Granulocytes Absolute 6.76 1.8 - 7.7 [facility] Lymphocytes Absolute 3.75 1.0 - 5.4 [facility] Monocytes Absolute 0.59 0.1 - 1.1 [facility] Eosinophils Absolute 0.19 0.0 - 0.7 [facility] Basophils Absolute 0.03 0.0 - 0.2 [facility] Comment Manual Diff Not Indicated [facility] BLOOD SPECIMEN / Unknown 04/03/2011 5:15 PM CDT 04/03/2011 5:23 PM CDT Tai Aleman MD LAB - HEMATOLOGY ORDERABLES [facility] [address] [place] [address] * (ABNORMAL) COMPREHENSIVE METABOLIC PANEL (04/03/2011 5:15 PM CDT) BUN 27(H) 7.0 - 17.0 mg/dl [facility] Sodium 144 137 - 145 mmol/L [facility] Potassium 4.2 3.6 - 5.0 mmol/L [facility] Chloride 103 98.0 - 107.0 mmol/L [facility] Glucose 92 70 - 105 mg/dl [facility] Creatinine 0.7 0.52 - 1.05 mg/dl [facility] AST 294(H) 14.0 - 36.0 U/L [facility] Alkaline Phosphatase 68 38.0 - 126.0 U/L [facility] Calcium 9.5 8.4 - 10.2 mg/dl [facility] Bilirubin Total 0.3 0.2 - 1.3 mg/dl [facility] Albumin 4.4 3.5 - 5.0 gm/dl [facility] Protein Total 7.5 6.3 - 8.2 gm/dl [facility] CO2 31(H) 22.0 - 30.0 mEq/L [facility] ALT 306(H) 9.0 - 52.0 U/L [facility] eGFR by MDRD 87.20 mL/min/1.7 3m2 [facility] BLOOD SPECIMEN / Unknown 04/03/2011 5:15 PM CDT 04/03/2011 5:23 PM CDT Tai Aleman MD LAB - CHEMISTRY O RDERABLES [facility] [address] [place] [address] * XR CHEST 1VW PORTABLE (04/03/2011 5:02 PM CDT) Anatomical Region Laterality Modality Chest Radiographic Adalgisa ging 04/03/2011 5:09 PM CDT Narrative 04/03/2011 5:09 PM CDT Portable AP chest ?? Indication: Chest pain Comparison: None available Findings: There is linear atelectasis in the left lower lobe. The right lung is clear. Normal heart size. No pneumothorax. There is thoracolumbar scoliosis. Procedure Note Eugene Luu MD - 04/03/2011 Portable AP chest Indication: Chest pain Comparison: None available Findings: There is linear atelectasis in the left lower lobe. The right lung is clear. Normal heart size. No pneumothorax. There is thoracolumbar scoliosis. Tai Aleman MD DIAGNOSTIC IMAGIN G ORDERABLES * GROSS + MICRO EXAM (05/27/2002 12:00 AM CDT) Only the most recent of2 resultswithin the time period is included. Result CASE NUMBER [id number] Comment: ORDERING PHYSICIAN ??WILMAN AGUILAR SPECIMEN TYPE ?Colon polyp-transverse Surgeon ?WILMAN AGUILAR M.D. Gross Exam ? Dr. Jane Beatty M.D. Gross Report ? INDICATION FOR PROCEDURE ??CONSTIPATION OPERATION ??COLONOSCOPY GROSS ?? THE SPECIMEN IS RECEIVED IN A CONTAINER LABELED WITH THE PATIENT'S NAME ??AND IDENTIFIED TRANSVERSE COLON POLYP . ??THE SPECIMEN CONSISTS OF ONE FRAGMENT OF LIGHT [place] SOFT TISSUE MEASURING 1 MM. IN GREATEST DIMENSIONS. ??THE SPECIMEN IS SUBMITTED IN ENTIRETY IN ONE CASSETTE. SL/SS ?? MICROSCOPIC EXAM ? MICROSCOPIC SECTIONS OF THE TRANSVERSE COLON POLYP SHOWS A SMALL FRAGMENT OF COLONIC MUCOSA DISPLAYING CHARACTERISTICS OF A TUBULAR ADENOMA. ?? THE GLANDS ARE LINED BY AN EPITHELIUM DISPLAYING HYPERCHROMASIA OF NUCLEI AND PSEUDOSTRATIFICATION. ??INVASIVE MALIGNANCY IS NOT PRESENT. ?? DIAGNOSIS ? 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 00926 MISCELLANEOUS SAMPLE S / Unknown 05/27/2002 05/27/2002 12:44 PM CDT Historical Provider MD LAB - PATHOLOGY/C YTOLOGY ORDERABLES * URINALYSIS - POINT OF CARE (AMB) [facility] (09/08/1998 12:00 AM TOOL TROUBLE SHOOTER) Glucose UA neg [facility] Bilirubin UA POCT neg [facility] Ketones UA POCT neg [facility] Specific [place] UA 1.015 [facility] Blood Urine POCT neg [facility] pH UA 6.0 [facility] Protein UA neg [facility] Urobilinogen UA 0.2 [facility] Nitrite UA neg [facility] WBC UA neg [facility] Urine specimen (specimen) 09/08/1998 Historical Provider MD LAB - POINT OF CA RE ORDERABLES [facility] Care Teams Hat Ironer Relationship Specialty Start Date End Date Guy Cast MD [address] [place] [address] PCP - General 06/20/21
--- OUTSIDE RECORDS SUMMARY | 2024-10-12 12:36 | XMS_ITS | Encounter Summary ---
Author Organization [facility] Address [address] [place] [address] Care Team Providers Care Curtain Stitcher Name Role Phone Guy Cast MD Primary Care Provider Regla Mattson MD Unavailable [phone] Encounter Details Date Type Department Care Team (Late st Contact Info) Description 04/12/[address] [facility] - Imaging [address] [place] [address] Transcribed Order, Provider Social History Tobacco Use Types Packs/Day Years Used Date Smoking Tobacco: Former Comments Unknown Sex and Gender Information Value Date Recorded Sex Assigned at Not on file Legal Sex Female 11:27 PM [employer] Gender Identity Not on file Sexual Orientation Not on file documented as of this encounter Plan of Treatment Not on file documented as of this encounter Visit Diagnoses Not on filedocumented in this encounter Care Teams Curtain Stitcher Relationship Specialty Start Date End Date Guy Cast MD PCP - General Family Practice 07/25/20 [place] [address] [place] [address] Consulting Physician Obstetrics and Gynecology 11/25/21 documented as of this encounter
--- OUTSIDE RECORDS SUMMARY | 2024-10-12 12:36 | XMS_ITS | Clinical Summary ---
Author Organization [facility] Address [address] [place] [address] Care Team Providers Care Spin Instructor Name Role Phone Guy Cast MD Primary Care Provider Regla Mattson MD Unavailable [phone] Allergies Active Allergy Reactions Criticality Noted Date [...] disease 11/07/2014 Abnormal gait 05/10/2014 Numbness 10/27/2013 Encounters Date Type Department Care Team Description 10/06/2024 Orders Only [facility] [id number] [place] [phone] Regla Mattson MD Encounter for well woman exam with routine gynecological exam; Screening mammogram for breast cancer 10/05/2024 Telephone [facility] [address] [place] [address] Monie Garcia from Last 3 Months Surgical History Surgery Date Site/Laterality Comments TUBAL LIGATION 09/08/1989 - 09/07/1990 Medical History Medical History Date Comments Crush injury Right hip fracture (CMS/HCC) (HCC) MS (multiple sclerosis) (HCC) Bladder dysfunction Thoracic aortic ectasia (CMS/HCC) (HCC) Rib fractures DDD (degenerative disc disease), cervical Sleep apnea present Urinary retention Family History Medical History Relation Name Comments Hypertension Brother Paul Schumacher Hypertension; Kidney cancer Father Biju Schumacher(cancer) Can cer, kidney; Cause of : Cancer, kidney/Family history of malignant neoplasm of kidney - (Added by TW Conv) Kidney disease Father Biju Schumacher(cancer) Hypertension Mother Elvira Worley Hypertensio n; Relation Name Status Comments Brother Paul Schumacher Father Biju Schumacher(cancer) Mother Elvira Worley Social History Tobacco Use Types Packs/Day Years Used Date Smoking Tobacco: Former Cigarettes Passive Smoke Exposure: Past Smokeless Tobacco: Never Tobacco Cessation:Counseling Given: Not Answered Comments No Sex and Gender Information Value Date Recorded Sex Assigned at Not on file 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 Gender Identity Not on file Sexual Orientation Not on file Obstetrics History Para Term AB IAB SAB Ectopic Multiple Livin g Live Births 1 Date Outcome GA Total Labor Labor/2nd/3rd Weight Sex Type Anes PTL Madeline A1 A5 Name Clin Term Comments 1980 at 41 weeks, Roxann Gangon Last Filed Vital Signs Vital Sign Reading [...] 06/04/2024 8:01 AM CDT Plan of Treatment Health Maintenance Due Date Last Done Comments Colon Cancer Screening-Colonoscopy 1956 Depression Screening 1956 Fall Risk Assessment 1956 Hepatitis C Screening 1956 Osteoporosis Screening-Bone Density Scan 1956 DTaP/Tdap/Td Vaccine (1 - Tdap) 12/20/1967 Hepatitis B Screening 1974 Zoster Vaccine (1 of 2) 2006 Pneumococcal vaccine 65+ (1 of 1 - PCV) 2021 Well Visit 65+ 11/26/2022 11/26/2021 Breast Cancer Screening-Mammogram 03/26/2023 022 Influenza Vaccine (#1) 2024 Medical Devices Implanted Type Area Sash Finisher Device Identifier Shelf Expiration Date Model / Serial / Lot Hardware Spine Cervical Hardware Mandible Hardware Right: Toes Procedures Procedure Name Priority Date/Time Associated Diagnosis Comments SCREENING MAMMOGRAM BILATERAL W JOHN Schedule Routine, Read Routine (OP Routine) 03/26/2022 from Last 3 Months or Most Recently Relevant to Health Maintenance Results * Screening Mammogram Bilateral W John (03/26/2022) Anatomical Region Laterality Modality Breast Bilateral Mammography Historical Provider MD [facility] MAMMO PROCEDURES Chika l Result from Last 3 Months or Most Recently Relevant to Health Maintenance Insurance MEDICARE SOL[employer] MEDICARE [facility] MEDICARE AlertMe MEDICARE AlertMe Care Teams Spin Instructor Relationship Specialty Start Date End Date Guy Cast MD PCP - General Family Practice 07/25/20 [place] [address] [place] [address] Consulting Physician Obstetrics and Gynecology 11/25/21
--- OUTSIDE RECORDS SUMMARY | 2024-10-12 12:36 | XMS_ITS | Encounter Summary ---
Author Organization [facility] Address [address] [place] [address] Care Team Providers Care Casino Manager Name Role Phone Guy Cast MD Primary Care Provider Regla Mattson MD Unavailable [phone] Encounter Details Date Type Department Care Team (Late st Contact Info) Description 10/05/2024 Telephone [facility] [address] [place] [address] Monie Garcia Social History Tobacco Use Types Packs/Day Years Used Date Smoking Tobacco: Former Cigarettes Passive Smoke Exposure: Past Smokeless Tobacco: Never Comments No Sex and Gender Information Value Date Recorded Sex Assigned at Not on file 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
--- OUTSIDE RECORDS SUMMARY | 2024-10-12 12:36 | XMS_ITS | Encounter Summary ---
Author Organization [facility] Address [address] [place] [address] Care Team Providers Care Instrument Mechanic Name Role Phone Guy Cast MD Primary Care Provider Encounter Details Date Type Department Care Team (Late st Contact Info) Description 10/05/2002 Outpatient Historical [facility] [address] [facility] [address] [place] [address] Diomedes Gleason Social History Tobacco Use Types Packs/Day Years Used Date Smoking Tobacco: Never Assessed Comments Unknown Sex and Gender Information Value Date Recorded Sex Assigned at Not on file Legal Sex Female 4:16 AM FOUNDRY HAND Gender Identity Not on file Sexual Orientation Not on file documented as of this encounter Plan of Treatment Upcoming Encounters Date Type Department Care Team (Late st Contact Info) Description 01/03/2025 10:00 AM CDT Office Visit [facility] Neurology [address] [place] [address] Moe Alvarado MD [address] [place] [address] documented as of this encounter Visit Diagnoses Not on filedocumented in this encounter Care Teams Instrument Mechanic Relationship Specialty Start Date End Date Guy Cast MD [address] [place] [id number] PCP - General Family Practice 07/23/22 documented as of this encounter
[2024-10-12 16:52] LABS: Basophils Percent Auto 0.4 % (0.2-1.2); Eosinophils Percent Auto 0.1 % (0-4.4); Hematocrit 45.3 % (37.0-47.0); Hemoglobin 14.9 g/dL (12.0-15.0); Immature Granulocyte Absolute 0.01 K/mm3 (0.00-0.031); Immature Granulocyte Percent A 0.1 % (0-0.5); Lymphocytes Absolute Auto 2.31 K/mm3 (0.9-3.2); Lymphocytes Percent Auto 32.5 % (18.3-44.2); Mean Corpuscular HGB Conc 32.9 g/dl (32-36); Mean Corpuscular Hemoglobin 29.6 pg (26-34); Mean Corpuscular Volume 89.9 fl (80-100); Mean Platelet Volume 9.5 fl (7.4-10.4); Monocytes Absolute Auto 0.7 K/mm3 (0.1-0.6); Monocytes Percent Auto 9.7 % (2.6-8.5); Neutrophils Absolute Auto 4.1 K/mm3 (1.3-6.7); Neutrophils Percent Auto 57.2 % (45.5-73.1); Platelet Count Result 285 k/mm3 (150-375); Red Blood Count 5.04 M/mm3 (4.2-5.4); Red Cell Distribution Width 13.1 % (11.5-14.5); White Blood Count 7.1 K/mm3 (4.5-10.0)
[2024-10-12 17:26] LABS: Add Urine Microscopic? YES; Appearance Urine Clear (Clear); Bacteria Urine None Seen /hpf; Bilirubin Urine 1+ (Negative); Blood Urine Negative (Negative); Color Urine Dark Yellow (Yellow); Glucose Urine UA Negative (Negative); Ketones Urine Negative (Negative); Leukocyte Esterase Ur Negative LEU/UL (Negative); Nitrate Urine Negative (Negative); Protein Urine 2+ mg/dL (Negative); Specific Grav Ur 1.027 (1.001-1.035); Squamous Epithelial Cell Urine None Seen /hpf (Few); Urobilinogen Urine 0.2 mg/dL (<2.0); WBC Urine 0-5 /hpf (0-3)
[2024-10-12 17:41] LABS: Platelet Estimate Adequate (Adequate)
[2024-10-12 17:42] LABS: Ovalocytes 1+; Schistocytes None Seen
[2024-10-12 18:22] LABS: Alanine Aminotransferase 38 U/L (6-35); Albumin Level 4.6 g/dL (3.5-5.1); Alkaline Phosphatase 75 U/L (38-126); Anion Gap 10 mmol/L (4-12); Aspartate Amino Transferase 45 U/L (14-36); Bilirubin,Total 0.5 mg/dL (0.2-1.3); Blood Urea Nitrogen 13 mg/dL (7-17); Calcium 9.9 mg/dL (8.4-10.2); Carbon Dioxide 27 mmol/L (22-30); Chloride 98 mmol/L (98-107); Cholesterol 97 mg/dL (0-200); Estimated Glomerular Filt Rate > 60; Glucose 103 mg/dL (65-110); HDL Direct 53 mg/dL; Potassium 4.8 mmol/L (3.4-5.0); Sodium 135 mmol/L (137-145); Triglycerides 83 mg/dL (<150)
[2024-10-12 18:52] LABS: Vitamin D 25 Hydroxy 61.4 ng/mL
[2024-10-12 19:06] LABS: Thyroid Stimulating Hormone Reflex 0.626 uIU/mL (0.465-4.68)
[2024-10-12 19:11] LABS: Vitamin B12 > 1000.0 pg/mL (239-931)
[2024-10-12 19:35] LABS: LDL Cholesterol Direct < 30 mg/dL
[2024-10-12 21:41] LABS: Hemoglobin A1C 5.6 % (<5.7)
== END 2024-10-12 12:32 | disposition home or self-care (01) ==
PROVIDERS: PCP Family Medicine; Visit Provider Family Medicine
DX: E78.5 Hyperlipidemia, unspecified (principal); I10 Essential (primary) hypertension; E55.9 Vitamin D deficiency, unspecified; R73.9 Hyperglycemia, unspecified; E53.8 Deficiency of other specified B group vitamins; R30.0 Dysuria
CPT/HCPCS: 36415; 80053; 80061; 81001; 82306; 82607; 83036; 84443; 85025

== ENCOUNTER 2025-02-24 08:27 | Outpatient (CLI) | payer OTHER, SELFPAY ==
--- NOTE | ~2025-02-24 | CT_ITS ---
CT scan of the Neck Technique: 2.5 mm axial scans were obtained through the neck after intravenous administration of 75 c c Omnipaque 350. Coronal and sagittal reconstructions of the neck were obtained. Dose reduction techn ique was used on this scan by utilizing automated exposure control and iterative reconstruction techn ique. The dose-length product (DLP) was 573.25 mGy-cm. Clinical History: Right clavicular swelling Findings: There is no evidence of any significant cervical lymphadenopathy. Several small, nonenlarged jugulo- digastric and posterior cervical lymph nodes are noted bilaterally. Parapharyngeal spaces appear norm al bilaterally. The parotid and submandibular glands appear normal. The pharyngeal mucosal spaces appear normal. No soft tissue masses are seen in the neck. 1.8 cm hypodense nodule present in the right thyroid lobe.. Images of the lung apices reveal no abnor malities. Visualized ascending aorta measures 4.5 cm in diameter. No distinct abnormality seen in the region of the mid to distal right clavicle at the area of the mar ker. Impression: No significant abnormality in the region of the marker at the mid to distal right clavicular region. 4.5 cm ascending aortic aneurysm. 1.8 cm hypodense right thyroid lobe nodule. Consider follow-up thyroid ultrasound as indicated. Reviewed, dictated and finalized at [facility]. Impression: No significant abnormality in the region of the marker at the mid to distal rig ht clavicular region. 4.5 cm ascending aortic aneurysm. 1.8 cm hypodense right thyroid lobe nodule. Consider follow-up thyroid ultrasou nd as indicated.
--- OUTSIDE RECORDS SUMMARY | 2025-02-24 08:39 | XMS_ITS | Clinical Summary ---
Author Organization [facility] Address [address] [place] [address] Care Team Providers Care Journeyman Powerhouse Operator Name Role Phone Guy Cats MD Primary Care Provider Source Comments [facility],non-owned Affiliates and Associated Physician Practices is amultiple site organization consisting of ambulatory clinics and hospital sitesin [place], [place], [place] and [place]. This disclosure is being madepursuant to the Care Everywhere program and may not contain all information available regarding this patient. Last updated 18.[facility] Allergies Active Allergy Reactions Criticality Noted Date Comments Atorvastatin Anaphylaxis High 11/15/2024 Azelastine Anaphylaxis High 11/15/2024 Fluticasone Anaphylaxis High 11/15/2024 Penicillins Anaphylaxis High 04/03/2011 Sulfa Drugs Anaphylaxis High 04/03/2011 Medications * Be aware that medications may not be up to date on this document. Alwaysverify current medications with the patient. multivitamin daily (THERAGRAN) tablet Take 1 (one) tablet by mouth daily with food Active [id number] T C-VIT D PO Take by mouth. Ac tive Chlorphenirami ne-Phenylephri ne (PD-HIST D PO) Take by mouth once daily as needed. Active albuterol HFA (Proventil; Ventolin; Proair) 108 (90 Base) MCG/ACT inhaler 2 puff(s) inhaled every 6 hours Active aspirin (Aspirin) 81 MG chew tablet 1 TAB(S) ORALLY ONCE A DAY Active Cholecalcifero l 50 MCG (2000 UT) 1 TAB(S) ORALLY ONCE A DAY Active diphenhydrAMIN E (Benadryl Allergy) 25 MG tablet Take 1 (one) tablet by mouth every 6 hours as needed Active Repatha SureClick 140 MG/ML auto-injector Inject 140 (one hundred forty) mg subcutaneously 4 Active loratadine (Claritin) 10 MG tablet 1 tab(s) orally once a day Active metoprolol succinate XL 24hr (Toprol XL) 25 MG tablet 1 tab(s) orally once a day 4 Active montelukast (Singulair) 10 MG tablet 1 tab(s) orally once a day Active multivitamins (One A Day) capsule Take 1 (one) capsule by mouth Active omeprazole EC (PriLOSEC OTC) 20 MG tablet 1 tab(s) orally once a day Active terbinafine (LamISIL) 250 MG tablet 1 tab(s) orally once a day Active Zinc 50 MG tablet 1 tab(s) orally once a day Active Zepbound 7.5 MG/0.5ML injection INJECT 7.5MG SUBCUTANEOUSLY ONCE WEEKLY 5 Active Turmeric, Curcuma Longa, Take by mouth A ctive triamcinolone (Nasacort Aq) 55 MCG/ACT nasal inhaler 2 (two) sprays as needed Active famotidine (Pepcid) 20 MG tablet Take 1 (one) tablet by mouth 2 times daily Active Coenzyme Q10 10 MG Take 10 mg by mouth once daily Active Vitamin E Acetate Take 180 mg by mouth Active potassium chloride ER (Klor-Con M) 10 MEQ tablet Take by mouth OTC not script Active Active Problems Problem Noted Date Diagnosed Date Liver injury, laceration 04/04/2011 Rib fracture 04/04/2011 Contusion shoulder/arm 04/04/2011 Contusion, knee 04/04/2011 Contusion, hip 04/04/2011 Encounters Date Type Department Care Team Description 12/22/2024 1:00 PM CDT Procedure visit [facility] - Urology [address], [address] [place] [address] Laurent Gan MD Overflow incontinence ; Hypotonic neurogenic bladder from Last 3 Months Social History Tobacco Use Types Packs/Day Years Used Date Smoking Tobacco: Former Cigarettes Q uit: 01/02/1997 Tobacco Cessation:Counseling Given: Not Answered Alcohol Use Standard Drinks/Week Comments No 0 (1 standard drink = 0.6 oz pur e alcohol) Comments No Sex and Gender Information Value Date Recorded Sex Assigned at Not on file Legal Sex Female 12:03 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 Gender Identity Not on file Sexual Orientation Not on file Last Filed Vital Signs Vital Sign Reading Time Taken Comments Blood Pressure 126/79 12/22/2024 1:15 PM CDT Pulse 75 12/22/2024 1:15 PM CDT Temperature 36.4 C (97.5 F) 04/07/2011 7:58 AM CDT Respiratory Rate 18 04/07/2011 10:30 AM CDT Oxygen Saturation 99% 12/22/2024 1:15 PM CDT Inhaled Oxygen Concentration - - Weight 90.7 kg (200 lb) 12/22/2024 1:15 PM CDT Height 167.6 cm (5' 6) 12/22/2024 1:15 PM CDT Body Mass Index 32.28 12/22/2024 1:15 PM CDT Plan of Treatment Health Maintenance Due Date Last Done Comments BONE DENSITY TESTING 1955 COLOGUARD (AGES 45-75) - COL ON CA SCREENING 1956 COLON MONITORING 1956 COLONOSCOPY - COLON CA SCREENING 1956 CT COLONOGRAPHY - COLON CA SCREENING 1956 Colorectal Cancer Screening 1956 FIT - COLON CA SCREENING 1956 FLEX SIG - COLON CA SCREENING 1956 LIPID TESTING 1955 MEDICARE AWV 12 MONTHS 1956 HEPATITIS C SCREENING 12/15/1974 DTAP/TDAP/TD VACCINES (1 - Tdap) 12/20/1975 PNEUMOCOCCAL VACCINE 50+ (1 of 1 - PCV) 2006 ZOSTER VACCINE (1 of 2) 2006 MAMMOGRAM 03/26/2024 03/26/2022 COVID-19 VACCINE (1 - 2023-2 5 season) 2024 DEPRESSION SCREENING 09/08/2024 INFLUENZA VACCINE (Season Ended) 2025 Respiratory Syncytial Virus (RSV) Vaccine Pt: or [...] to complete this topic MENINGOCOCCAL (Group B) VACC INE SHARED DECISION-MAKING Aged Out No longer eligibl e based on patient's age to complete this topic MENINGOCOCCAL GROUPS A/C/Y/W VACCINE Aged Out No longer eligible b ased on patient's age to complete this topic Procedures Procedure Name Priority Date/Time Associated Diagnosis Comments BLADDER SCAN - POINT OF CARE (AMB) Routine 12/22/2024 4:42 PM CDT Overflow incontinence from Last 3 Months Results * BLADDER SCAN - POINT OF CARE (AMB) (12/22/2024 4:42 PM CDT) mL [facility] UROL [facility] Urine URINE / Unknown 12/22/2024 4 :42 PM CDT Laurent Gan MD LAB - POINT OF CARE ORDERABLES F inal Result [facility] [address] [facility] [address] [place] [address] [phone] from Last 3 Months Insurance [facility] MEDICARE ADV PPO Advance Directives Documents on File Type Date Recorded Patient Wildlife Removal Specialist Expl anation Adv Directive/Living Will/POA 04/08/2011 12:02 PM * FULL RESUSCITATION (Latest Code Status on File) Date Activated Date Inactivated Comments 04/03/2011 9:36 PM 04/07/2011 11:05 PM Care Teams Journeyman Powerhouse Operator Relationship Specialty Start Date End Date Guy Cast MD [address] [place] [address] PCP - General 06/20/21
--- OUTSIDE RECORDS SUMMARY | 2025-02-24 08:39 | XMS_ITS | Encounter Summary ---
Author Organization [facility] Address [address] [place] [address] Care Team Providers Care Retail Project Merchandiser Name Role Phone Guy Cast MD Primary Care Provider Regla Mattson MD Unavailable Encounter Details Date Type Department Care Team (Late st Contact Info) Description 10/05/2024 Telephone [facility] [address] [place] [address] Monie Garcia Social History Tobacco Use Types Packs/Day Years Used Date Smoking Tobacco: Former Cigarettes Passive Smoke Exposure: Past Smokeless Tobacco: Never Comments No Sex and Gender Information Value Date Recorded Sex Assigned at Not on file 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
--- OUTSIDE RECORDS SUMMARY | 2025-02-24 08:40 | XMS_ITS | Clinical Summary ---
Author Organization [facility] Address [facility] [place] [address] Care Team Providers Care Furnace Puncher Name Role Phone Guy Cast MD Primary Care Provider Regla Mattson MD Unavailable [phone] Allergies Active Allergy Reactions Criticality Noted Date Comments Atorvastatin Anaphylaxis High 10/22/2022 Azelastine Shortness of breath High 08/07/2023 Glatiramer Anaphylaxis,Edema High Fluticasone Other (See comments) Low 07/23/2022 Fluticasone Furoate Shortness of breath High 025 Glatiramer (Copolymer 1) Anaphylaxis,Other (See comments),Shortness of breath,Swelling High 07/23/2022 Milk Unknown 12/02/2024 Mold Unknown 12/02/2024 Other Other (See comments) 12/02/2024 Sensitive to various scents in many products. Unknown reaction. Penicillins Anaphylaxis,Shortnes s of breath,Swelling High 04/03/2011 Sulfa (Sulfonamide Antibiotics) Anaphylaxis High 04/03/2011 Dimethyl Fumarate Unknown 01/14/2017 Tree And Shrub Pollen Unknown 12/02/2024 Medications cholecalciferol (VITAMIN D3) 400 unit capsule take 1 by Oral route once 0 0 01/13/20 15 Active zinc gluconate 30 mg tablet Take 30 mg by mouth daily Active aspirin 81 mg enteric coated tabletIndicatio ns:Thoracic aortic ectasia Take 1 tablet (81 mg total) by mouth daily 30 tablet 11 03/16/20 21 Active POTASSIUM CHLORIDE ORAL Take by mouth OTC not script Active terbinafine (LamiSIL) 250 mg tablet Take 1 tablet (250 mg total) by mouth daily 08/28/20 21 Active albuterol HFA (PROVENTIL HFA,VENTOLIN HFA,PROAIR HFA) 90 mcg/actuation inhaler INHALE 1 TO 2 PUFFS BY MOUTH EVERY 4 TO 6 HOURS NEEDED FOR SHORTNESS OF BREATH OR WHEEZING 02/09/20 22 Active multivitamin capsule Take 1 capsule by mouth Active omeprazole 20 mg tablet,delayed release (DR/EC) 09/08/19 19 Active Lactobacillus acidophilus 10 billion cell capsule Take 1 capsule by mouth daily Active metoprolol XL (TOPROL-XL) 25 mg extended release tabletIndicatio ns:Thoracic aortic ectasia TAKE 1 TABLET(25 MG) BY MOUTH DAILY 90 tablet 3 06/02/20 24 Active evolocumab (Repatha SureClick) 140 mg/mL pen injector Inject 1 mL (140 mg total) under the skin every 14 (fourteen) days 2 mL 11 08/02/20 24 Active Zepbound 5 mg/0.5 mL pen injector INJECT 5MG SUBCUTANEOUSLY ONCE WEEKLY 11/02/19 25 Active loratadine (CLARITIN) 10 mg tablet 1 tablet (10 mg total) as needed Active triamcinolone (Nasacort) 55 mcg nasal inhaler 2 sprays as needed A ctive diphenhydrAMINE 25 mg capsule Take 1 tablet/capsule (25 mg total) by mouth every 6 (six) hours as needed for itching Active famotidine (PEPCID) 20 mg tablet Take 1 tablet (20 mg total) by mouth 2 (two) times a day Active VITAMIN E ACETATE ORAL Take 180 mg by mouth Active turmeric root extract 500 mg capsule Take by mouth Active Active Problems Problem Noted Date Diagnosed Date Obesity (BMI 30.0-34.9) 12/31/2024 Pulmonary nodule 03/27/2022 KAYLEY (obstructive sleep apnea) 07/13/2019 Carpal tunnel syndrome 08/19/2017 MS (multiple sclerosis) 06/09/2017 Optic neuritis 10/17/2015 Thoracic aortic ectasia 01/12/2015 Overview (12/12/2016): Ascending aorta enlargement Hypercholesteremia 01/12/2015 Overview (12/12/2016): High cholesterol Taking multiple medications for chronic disease 11/07/2014 Abnormal gait 05/10/2014 Numbness 10/27/2013 Encounters Date Type Department Care Team Description 12/31/2024 11:30 AM CDT Office Visit [facility] Cardiology [address] [place] [address] Claudio Mittal MD Thoracic aortic ectasia (Primary Dx); Hypercholesteremia; KAYLEY (obstructive sleep apnea); MS (multiple sclerosis) (HCC); Obesity (BMI 30.0-34.9) 12/02/2024 11:45 AM CDT Office Visit [facility] [address] [facility] [place] [phone] Regla Mattson MD Routine gynecological examination (Primary Dx) 11/25/2024 Telephone [facility] Cardiology [address] [place] [address] Claudio Mittal MD from Last 3 Months Surgical History Surgery Date Site/Laterality Comments TUBAL LIGATION 09/08/1989 - 09/07/1990 Medical History Medical History Date Comments Crush injury Right hip fracture (CMS/HCC) (HCC) MS (multiple sclerosis) (HCC) Bladder dysfunction Thoracic aortic ectasia Rib fractures DDD (degenerative disc disease), cervical Sleep apnea present Urinary retention Arthritis Family History Medical History Relation Name Comments [...] Years Used Date Smoking Tobacco: Former Cigarettes 1 10 Passive Smoke Exposure: Past Smokeless Tobacco: Never Tobacco Cessation:Counseling Given: Not Answered Comments No Sex and Gender Information Value Date Recorded Sex Assigned at Not on file 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 Gender Identity Not on file Sexual Orientation Not on file Obstetrics History Para Term AB IAB SAB Ectopic Multiple Livin g Live Births 1 1 1 1 1 Date Outcome GA Total Labor Labor/2nd/3rd Weight Sex Type Anes PTL Madeline A1 A5 Name Clin Term Comments 1980 at 41 weeks, Roxann Gagnon Last Filed Vital Signs Vital Sign Reading Time Taken Comments Blood Pressure 124/64 12/31/2024 11:53 AM CDT Pulse 80 12/31/2024 11:53 AM CDT Temperature - - Respiratory Rate 16 06/09/2017 8:34 AM CDT Oxygen Saturation 95% 12/31/2024 11:53 AM CDT Inhaled Oxygen Concentration - - Weight 91.2 kg (201 lb) 12/31/2024 11:53 AM CDT Height 170.2 cm (5' 7) 12/31/2024 11:53 AM CDT Body Mass Index 31.48 12/31/2024 11:53 AM CDT Plan of Treatment Health Maintenance Due Date Last Done Comments Colon Cancer Screening-Colonoscopy 1956 Depression Screening 1956 Fall Risk Assessment 1956 Hepatitis C Screening 1956 Osteoporosis Screening-Bone Density Scan 1956 DTaP/Tdap/Td Vaccine (1 - Tdap) 12/20/1967 Hepatitis B Screening 1974 Pneumococcal vaccine 65+ (1 of 1 - PCV) 2006 Zoster Vaccine (1 of 2) 2006 Breast Cancer Screening-Mammogram 03/26/2023 022 Influenza Vaccine (Season Ended) 2025 Well Visit 65+ 12/02/2025 12/02/2024, 11/26/2021 Medical Devices Implanted Type Area Route Sales Delivery Drivers Supervisor Device Identifier Shelf Expiration Date Model / Serial / Lot Hardware Spine Cervical Hardware Mandible Hardware Right: Toes Procedures Procedure Name Priority Date/Time Associated Diagnosis Comments POCT LIPID PANEL Routine 12/31/2024 12:0 0 PM CDT Hypercholesteremia PAP ONLY Routine 12/02/2024 1:09 PM CDT Routine gynecological examination SCREENING MAMMOGRAM BILATERAL W NUZHAT Schedule Routine, Read Routine (OP Routine) 03/26/2022 from Last 3 Months or Most Recently Relevant to Health Maintenance Results * POCT lipid panel (12/31/2024 12:00 PM CDT) Cholesterol, POC 134 mg/dL HDL, POC 43 mg/dL Triglycerides, POC 128 mg/dL LDL Cholesterol POC 65 mg/dL Chol/HDL Ratio, POC 1.5 Non-HDL Cholesterol, POC 91 mg/dL Cholesterol Total, POC 134 mg/dL Capillary blood 12/31/2024 1 2:00 PM CDT us Claudio Mittal MD POINT OF CARE TEST ORDERA BLES Final Result * Pap only (12/02/2024 1:09 PM CDT) CLINICAL INFORMATION: [facility] Comment:Routine exam LMP [facility] Comment:N/A Previous Pap [facility] Comment:NONE GIVEN Prev. Bx [facility] Comment:NONE GIVEN SOURCE: [facility] Comment:Cervix, Endocervix Pap, specimen adequacy [facility] Comment:SATISFACTORY FOR YOEL LUATION HPV interp [facility] Comment: Cytology Results: Negative for intraepithelial lesion or malignancy. Atrophic pattern; predominantly parabasal cells COMMENTS [facility] Comment: This Pap test has been evaluated with computer assisted technology. Valet Parker Jagruti Shel[facility] Comment: FXL, CT(ASCP) CT screening location: [facility], [address] [place] [address] [address], [place] [address] Painter Apprentice: TUCKER VELAZQUEZ MD, CLIA: [id number] Comment [facility] Comment: EXPLANATORY NOTE: The Pap is a screening test for cervical cancer. It is not a diagnostic test and is subject to false negative and false positive results. It is most reliable when a satisfactory sample, regularly obtained, is submitted with relevant clinical findings and history, and when the Pap result is evaluated along with historic and current clinical information. Thin prep 12/02/2024 1:09 PM CDT 12/03/2024 1:29 AM CDT Regla Mattson MD LAB CYTOLOGY ORDERABLES F inal Result [facility] [address] [address] * Screening Mammogram Bilateral W Nuzhat (03/26/2022) Anatomical Region Laterality Modality Breast Bilateral Mammography Historical Provider [facility] MAMMO PROCEDURES Chika l Result from Last 3 Months or Most Recently Relevant to Health Maintenance Insurance [facility] MEDICARE ADVANTAGE MEDICARE AAR [employer] ADVANTAGE CHOICE PPO [employer] ADVANTAGE CHOICE PPO Care Teams Furnace Puncher Relationship Specialty Start Date End Date Guy Cast MD PCP - General Family Practice 07/25/20 [place] [address] [place] [address] Consulting Physician Obstetrics and Gynecology 11/25/21
--- OUTSIDE RECORDS SUMMARY | 2025-02-24 08:40 | XMS_ITS | Encounter Summary ---
Author Organization [facility] Healthcare Address [address] [place] [address] Care Team Providers Care Baggage Checker Name Role Phone Guy Cast MD Primary Care Provider Regla Mattson MD Unavailable [phone] Encounter Details Date Type Department Care Team (Late st Contact Info) Description 04/12/2021 Telephone [facility] - [facility] [address] [place] [address] Transcribed Order, Provider Social History Tobacco Use Types Packs/Day Years Used Date Smoking Tobacco: Former Comments Unknown Sex and Gender Information Value Date Recorded Sex Assigned at Not on file 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
--- OUTSIDE RECORDS SUMMARY | 2025-02-24 08:40 | XMS_ITS | Clinical Summary ---
Author Organization [facility] Address [address] [place] [address] Care Team Providers Care Dishwasher Busser Name Role Phone Guy Cast MD Primary [...] tablet Take 250 mg by mouth daily. 08/28/20 21 Active montelukast (SINGULAIR) 10 mg tablet Take 10 mg by mouth daily at bedtime. 03/05/20 22 Active metoprolol succinate (TOPROL XL) 25 mg Extended Release 24 hour tablet Take 25 mg by mouth daily. 05/31/20 22 Active aspirin (ECOTRIN EC) 81 mg Tablet, Delayed Release (E.C.) Take 81 mg by mouth daily. 03/16/20 21 Active albuterol sulfate 90 mcg/Actuation inhaler INHALE 1 TO 2 PUFFS BY MOUTH EVERY 4 TO 6 HOURS NEEDED FOR SHORTNESS OF BREATH OR WHEEZING 02/09/20 Active POTASSIUM CHLORIDE ORAL Take by mouth. A ctive Multivitamin Capsule Take 1 Tablet by mouth. Active cholecalcifero l, Vitamin D3, 50 mcg (2,000 unit) Tablet Take 2,000 Units by mouth daily. Active triamcinolone acetonide (Nasacort) 55 mcg nasal spray Administer 2 Sprays in each nostril see administration instructions. prn Active EPINEPHrine (EpiPen) 0.3 mg/0.3 mL Auto-Injector Inject 0.3 mg by subcutaneous injection one time only. 07/28/20 23 Active diphenhydrAMIN E (Benadryl Allergy) 25 mg tablet Take 25 mg by mouth every 6 hours as needed. Active Repatha SureClick 140 mg/mL Pen Injector Inject 140 mg by subcutaneous injection every 2 weeks. 01/01/20 25 Active famotidine (PEPCID) 20 mg tablet Take 20 mg by mouth 2 times daily. Active Zepbound 10 mg/0.5 mL Pen Injector Inject 10 mg by subcutaneous injection every 7 days. 12/30/19 25 Active semaglutide (Ozempic) 2 mg/dose (8 mg/3 mL) Pen Injector Take 2 mg by mouth every 7 days. 05/13/20 025 Discontinu ed(Alterna te therapy prescribed ) Active Problems Problem Noted Date Diagnosed Date [...] Encounters Date Type Department Care Team Description 01/27/2025 2:00 PM CDT Office Visit [facility] Neurology [address] [facility] [address] [place] [address] Moe Alvarado MD Multiple sclerosis ([facility]) (Primary Dx); Vitamin D insufficiency 01/25/2025 External Device Data STL ABSTRACTION Provider, Abstract 01/03/2025 10:00 AM CDT Office Visit [facility] Neurology [address] [facility] [address] [place] [address] Moe Alvarado MD Left without seen 11/24/2024 External Device Data STL ABSTRACTION Provider, Abstract from Last 3 Months Family History Medical History Relation Name Comments Hypertension Mother Elvira Worley Relation Name Status Comments Mother Elvira Worley Social History Tobacco Use Types Packs/Day Years Used Date Smoking Tobacco: Former Cigarettes Q uit: 09/11/1996 Smokeless Tobacco: Never Tobacco Cessation:Counseling Given: Not Answered Comments:Smoked the low tar and nicotine Alcohol Use Standard Drinks/Week Comments Yes 0 (1 standard drink = 0.6 oz pur e alcohol) less than 2 times a month Comments Unknown Sex and Gender Information Value Date Recorded Sex Assigned at Not on file Legal Sex Female 4:16 AM GLOBAL MARKETING COORDINATOR Gender Identity Not on file Sexual Orientation Not on file Last Filed Vital Signs Vital Sign Reading Time Taken Comments Blood Pressure 120/80 01/27/2025 2:09 PM CDT Pulse 72 01/27/2025 2:09 PM CDT Temperature - - Respiratory Rate - - Oxygen Saturation 96% 01/27/2025 2:09 PM CDT Inhaled Oxygen Concentration - - Weight 90.7 kg (200 lb) 01/27/2025 2:09 PM CDT Height 167.6 cm (5' 6) 01/27/2025 2:09 PM CDT Body Mass Index 32.28 01/27/2025 2:09 PM CDT Plan of Treatment Upcoming Encounters Date Type Department Care Team (Late st Contact Info) Description 11/01/2025 2:00 PM GLOBAL MARKETING COORDINATOR Office Visit [facility] Neurology [address] [facility] [address] [place] [address] Moe Alvarado MD [address] [facility] [address] [place] [phone] Health Maintenance Due Date Last Done Comments Pre-Diabetes and Diabetes Screening 1955 DTAP/TDAP/TD VACCINES (1 - Tdap) 12/20/1975 COLORECTAL SCREENING 2001 Colorectal Cancer Screening 2001 FIT-DNA Q 3 years 2001 FIT/FOBT Q 1 year 2001 Flex Sig/CT Colonography Q 5 years 2001 PNEUMOCOCCAL VACCINE 50+ YEARS (1 of 1 - PCV) 12/20/19 07 ZOSTER VACCINE (1 of 2) 2006 RSV VACCINE (60+ or ) (1 - Risk 60-74 years 1-dose series) 2016 OSTEOPOROSIS SCREENING 2021 BREAST CANCER SCREENING 03/26/2023 03/26/2022 INFLUENZA VACCINE (#1) 2024 Procedures Procedure Name Priority Date/Time Associated Diagnosis Comments VITAMIN D 25 HYDROXY Routine 02/03/2025 2:14 PM CDT Multiple sclerosis (CMS/HCC) Vitamin D insufficiency from Last 3 Months Results * VITAMIN D 25 HYDROXY (02/03/2025 2:14 PM CDT) VITAMIN D, 25 OH, TOTAL 69 30 - 100 ng/mL [facility] Comment: Vitamin D Status 25-OH Vitamin D: Deficiency: <20 ng/mL Insufficiency: 20 - 29 ng/mL Optimal: > or = 30 ng/mL For 25-OH Vitamin D testing on patients on D2-supplementation and patients for whom quantitation of D2 and D3 fractions is required, the [facility]() 25-OH VIT D, (D2,D3), LC/MS/MS is recommended: order code [id number] (patients >2yrs). See Note 1 Note 1 For additional information, please refer to http://education.PrimeStone/faq/HZD444 (This link is being provided for informational/ educational purposes only.) Test Performed at: [facility] [address] [place] [address] Rachel Dominguez MD Blood 02/03/2025 2:14 PM CDT 02/03/2025 2:15 PM CDT us Moe Alvarado MD CHEMISTRY ORDERABLES Final Resul t [facility] [phone] [facility] [address] [phone] from Last 3 Months Insurance [facility] Care Teams Dishwasher Busser Relationship Specialty Start Date End Date Guy Cast MD [address] [place] [address] PCP - General Family Practice 07/23/22
--- OUTSIDE RECORDS SUMMARY | 2025-02-24 08:40 | XMS_ITS ---
Author Organization [facility] [employer] ([address]) Address [address] [place] [address] Care Team Providers Care Farm Machine Tender Name Role Phone Guy Cast Primary Care Provider Un available Elder Nicole Unavailable [phone] [facility], Provider Unavailable Unavailab le Allergies Allergen (clinical drug ingredient) Drug/Non Drug Allergy documented on EMR Reaction Allergy Type Onset Date Status azelastine Azelastine HCl shortness of breath Drug Allergy Active fluticasone Flonase Sensimist shortness of breath Drug Allergy Active penicillin V Penicillin V Potassium angioedema Drug Allergy Active atorvastatin Atorvastatin shortness of breath Drug Allergy Active [facility] Encounter Medications Medication SIG (Take, Route, Frequency, Duration) Notes Start Date End Date Status Nasacort Allergy 24HR 55 MCG/ACT 1 spray(s) in each nostril once a day Active Opcon-A 0.027%-0.315% DIRECTED *Please review and pick correct strength-formulat ion from PerformYard options. If intended option is not shown, discontinue and re-order from Quick Search* Active Ipratropium Hilbert 21 MCG/INH 2 SPRAY(S) INTRANASALLY 3 TIMES A DAY for 30 DAYS *Please review and pick correct strength-formulat ion from [employer] options. If intended option is not shown, discontinue and re-order from Quick Search* 08/25/2023 Active Montelukast Sodium 10 MG 1 tab(s) orally once a day PRN Active EpiPen 2-Erik 0.3 MG/0.3ML as directed intramuscularly once for 30 days Active Omeprazole Magnesium 20 MG 1 tab(s) orally once a day Active Terbinafine HCl 250 MG 1 tab(s) orally once a day Active Metoprolol Succinate ER 25 MG 1 tab(s) orally once a day Active Aspirin 81 MG 1 TAB(S) ORALLY ONCE A DAY *Please review and pick correct strength-formulat ion from Per[employer]Yard options. If intended option is not shown, [...] review and pick correct strength-formulat ion from Per[employer]ard options. If intended option is not shown, [...] review and pick correct strength-formulat ion from Per[employer]ard options. If intended option is not shown, discontinue and re-order from Quick Search* Active Albuterol Sulfate HFA 108 (90 Base) MCG/ACT 2 puff(s) inhaled every 6 hours Active Encounters Encounter Location Date Provider Diagnosis [address] [address] 02/21/2024 Provider [facility] Allergic rhinitis due to [...] review a nd pick correct strength-formulation from [employer] Sciences[employer] options. If intended option is not shown, discontinue and re-order from Quick Search* Ipratropium Hilbert 21 MCG/INH 2 SPRAY(S) INTRANASALLY 3 TIMES A DAY for 30 DAYS 08/25/2023 *Please review and pick correct strength-formulation from [employer] options. If intended option is not shown, discontinue and re-order from Quick Search* Montelukast Sodium 10 MG 1 tab(s) orally once a day PRN EpiPen 2-Erik 0.3 MG/0.3ML as directed intramuscularly once for 30 days Albuterol Sulfate HFA 108 (90 Base) MCG/ACT 2 puff(s) inhaled every 6 hours Progress Notes * Colin PAYANOB:1955 (69 yo F)Acc No.[id number]:02/21/2024 Patient: Jamila GONG Provider: Robert chapa Migration :1955 A ge:68 Y S ex:Female Date:02/21/2024 Address:[address] [place] [address] [address], [place] , [id number] Pcp:Guy Cast Subjective: * Chief Complaints: * 1 . [facility] En[facility]. * Medical History: * Medications: T aking Vitamin D3 50 MCG TABLET 1 TAB(S) ORALLY ONCE A DAY , Notes to Pharmacist: *Please review and pick correct strength-formulation from [employer]uminal Sciencesan options. If intended option is not shown, [...] *Please review and pick correct strength-formulation from Kiddie Kistspan options. If intended option is not shown, [...] *Please review and pick correct strength-formulation from [employer] options. If intended option is not shown, [...] Refills 0. 4. O thers Start Ipratropium Hilbert [place], 21 MCG/INH, 2 SPRAY(S), INTRANASALLY, 3 TIMES A DAY, 30 DAYS, 1, Refills 1, Notes to Pharmacist: *Please review and pick correct strength-formulation from PerformYard options. If intended option is not shown, discontinue and re-order from Quick Search*. * Billing Information: * Visit Code: * Procedure Codes: * Electronic signature of Germán MULLEN-Migration on 02/24/2025 at 08:39 AM CDT Sign off status: Pending * Provider: Robert Gallo Date: 0 02/21/2024 Generated for Silke santos/Reji/Elkeitting on: 0 02/24/2025 08:39 AM CDT
--- OUTSIDE RECORDS SUMMARY | 2025-02-24 08:40 | XMS_ITS | Encounter Summary ---
Author Organization [employer] [facility] Address [address] [place] [address] Care Team Providers Care Fermenter Helper Name Role Phone Guy Cast MD Primary Care Provider Encounter Details Date Type Department Care Team (Late st Contact Info) Description 10/05/2002 Outpatient Historical [facility] Women's Health Care [facility] [address] [facility] [address] [place] [address] Diomedes Gleason Social History Tobacco Use Types Packs/Day Years Used Date Smoking Tobacco: Never Assessed Comments Unknown Sex and Gender Information Value Date Recorded Sex Assigned at Not on file Legal Sex Female 4:16 AM PARK AIDE Gender Identity Not on file Sexual Orientation Not on file documented as of this encounter Plan of Treatment Upcoming Encounters Date Type Department Care Team (Late st Contact Info) Description 11/01/2025 2:00 PM PARK AIDE Office Visit [facility] Neurology [address] [address] [place] [address] Moe Alvarado MD [address] [place] [address] documented as of this encounter Visit Diagnoses Not on filedocumented in this encounter Care Teams Fermenter Helper Relationship Specialty Start Date End Date Guy Cast MD [address] [place] [id number] PCP - General Family Practice 07/23/22 documented as of this encounter
--- OUTSIDE RECORDS SUMMARY | 2025-02-24 08:40 | XMS_ITS | Encounter Summary ---
Author Organization [employer] [facility] Address [address] [place] [address] Care Team Providers Care Color Maker Formulator Name Role Phone Guy Cast MD Primary Care Provider Encounter Details Date Type Department Care Team (Late st Contact Info) Description 06/22/2002 Outpatient Historical [facility] Women's Health Care [facility] [address] [facility] [address] [place] [address] Diomedes Gleason Social History Tobacco Use Types Packs/Day Years Used Date Smoking Tobacco: Never Assessed Comments Unknown Sex and Gender Information Value Date Recorded Sex Assigned at Not on file Legal Sex Female 4:16 AM COOLER ROOM WORKER Gender Identity Not on file Sexual Orientation Not on file documented as of this encounter Plan of Treatment Upcoming Encounters Date Type Department Care Team (Late st Contact Info) Description 11/01/2025 2:00 PM COOLER ROOM WORKER Office Visit [facility] Neurology [address] [address] [place] [address] Moe Alvarado MD [address] [place] [address] documented as of this encounter Visit Diagnoses Not on filedocumented in this encounter Care Teams Color Maker Formulator Relationship Specialty Start Date End Date Guy Cast MD [address] [place] [phone] PCP - General Family Practice 07/23/22 documented as of this encounter
--- OUTSIDE RECORDS SUMMARY | 2025-02-24 08:40 | XMS_ITS | Patient Health Record ---
Author Organization [facility] [employer] ([address]) Address [address] [place] [address] Care Team Providers Care Crayon Painter Name Role Phone Skye Castrolandokai Primary Care Provider Un available Elder Nicole Unavailable [phone] Allergies Allergen (clinical drug ingredient) Drug/Non Drug Allergy documented on EMR Reaction Allergy Type Onset Date Status azelastine Azelastine HCl shortness of breath Drug Allergy Active fluticasone Flonase Sensimist shortness of breath Drug Allergy Active penicillin V Penicillin V Potassium angioedema Drug Allergy Active atorvastatin Atorvastatin shortness of breath Drug Allergy Active Reason For Referral No Information Medications Medication SIG (Take, Route, Frequency, Duration) Notes Start Date End Date Status COQ10 100 mg 1 cap(s) orally once a day 200MG Active ZINC 140 mg (as elemental zinc 50 mg) 1 tab(s) orally once a day Active VITAMIN D3 50 mcg 1 tab(s) orally once a day Active Ipratropium [place] 21 MCG/INH 2 SPRAY(S) INTRANASALLY 3 TIMES A DAY for 30 DAYS *Please review and pick correct strength-formulat ion from Ikanosspan options. If intended option is not shown, discontinue and re-order from Quick Search* 08/25/2023 Active Vitamin D3 50 MCG 1 TAB(S) ORALLY ONCE A DAY *Please review and pick correct strength-formulat ion from [employer]kanosspan options. If intended option is not shown, discontinue and re-order from Quick Search* Active Zinc 50 MG 1 tab(s) orally once a day Active POTASSIUM 99 mg 1 tab orally once pe r day 294MG Active Co Q 10 100 MG 1 cap(s) orally once a day 200MG Active MULTIVITAMIN 1 po once a day A ctive ALBUTEROL 90 mcg/inh 2 puff(s) inhaled every 6 hours Active TERBINAFINE 250 mg 1 tab(s) orally once a day Active OMEPRAZOLE 20 mg 1 tab(s) orally once a day Active Omeprazole Magnesium 20 MG 1 tab(s) orally once a day Active Terbinafine HCl 250 MG 1 tab(s) orally once a day Active ASPIRIN 81 mg 1 tab(s) orally once a day Active Metoprolol Succinate ER 25 MG 1 tab(s) orally once a day Active EPIPEN 2-ERIK 0.3 mg as directed intramuscularly once for 30 days Active METOPROLOL SUCCINATE ER 25 mg 1 tab(s) orally once a day Active Aspirin 81 MG 1 TAB(S) ORALLY ONCE A DAY *Please review and pick correct strength-formulat ion from [employer] options. If intended option is not shown, discontinue and re-order from Quick Search* Active Nasacort Allergy 24HR 55 MCG/ACT 1 spray(s) in each nostril once a day Active Loratadine 10 MG 1 tab(s) orally once a day PRN Active Opcon-A 0.027%-0.315% DIRECTED *Please review and pick correct strength-formulat ion from Live[employer] options. If intended option is not shown, discontinue and re-order from Quick Search* Active Albuterol Sulfate HFA 108 (90 Base) MCG/ACT 2 puff(s) inhaled every 6 hours Active Montelukast Sodium 10 MG 1 tab(s) orally once a day PRN Active EpiPen 2-Erik 0.3 MG/0.3ML as directed intramuscularly once for 30 days Active Potassium 99 MG 1 TAB ORALLY ONCE PE R DAY 294MG *Please review and pick correct strength-formulat ion from Live[employer]ier options. If intended option is not shown, discontinue and re-order from Quick Search* Active Multivitamin - 1 po once a day Active OZEMPIC 8 MG/3 ML (2 MG DOSE) DIRECTED SUBCUTANEOUSLY ONCE A WEEK *Please review for potential replacement for e-prescription and drug interaction check* Active MONTELUKAST 10 mg 1 tab(s) orally once a day PRN Active NASACORT ALLERGY 24HR 55 mcg/inh 1 spray(s) in each nostril once a day Active OPCON-A 0.027%-0.315% as directed Active IPRATROPIUM BROMIDE NASAL 21 mcg/inh 2 spray(s) intranasally 3 times a day for 30 days 08/25/2023 Active LORATADINE 10 mg 1 tab(s) orally once a day PRN Active Social History Tobacco Use: Social History Observation Description Date Details (start date - stop date) Never Smoker NA - NA Smoking Smart Form: Question Answer Notes Are you a: never smoker Problems Problem Type SNOMED Code ICD Code Onset Dates Problem Status W/U Status Risk Notes Problem Shortness of breath (852185730) Shortness of breath (R06.02) Active confirmed Problem Allergy to penicillin (95379161) Allergy status to penicillin (Z88.0) Active confirmed Problem Multiple sclerosis (35141203) Multiple sclerosis (G35) Active confirmed Problem Sleep apnea (33869087) Sleep apnea, unspecified (G47.30) Active confirmed Problem Aortic aneurysm (21989417) Aortic aneurysm of unspecified site, without rupture (I71.9) Active confirmed Problem Allergic rhinitis caused by pollen (disorder) (29517975) Allergic rhinitis due to pollen (J30.1) Active confirmed Problem Allergic rhinitis (75859811) Other allergic rhinitis (J30.89) Active confirmed Problem Dysphagia (01782817) Dysphagia, unspecified (R13.10) Active confirmed Plan Of Treatment No Information Insurance Providers Payer Name Payer Address Payer Phone Subscriber Number Group Number Insured Name Patient Relationship to Insured Coverage Start Date Coverage End Date [employer] Medicare [address] [address] [place] [address] [id number] Jamila Monzon Self - patient is the insured Medical (General) History Medical History History ICD Code Aortic aneurysm of unspecified site, wit hout rupture I71.9 Multiple sclerosis G35 torn right retina Sleep apnea, unspecified G47.30 Surgical History Surgery Date(Month/Year) jaw surgery 1989 right great toe surgery 1990s neck surgery unknown carpal tunnel both wrist unknown deviated septum 01/2023 Hospitalization History Reason Date(Month/Year) see surgery hx
--- OUTSIDE RECORDS SUMMARY | 2025-02-24 08:40 | XMS_ITS | Referral Summary ---
Author Organization [facility] Address [address] [place] [address] Care Team Providers Care Municipal Clerk Name Role Phone Guy Cast MD Primary Care Provider Regla Mattson MD Unavailable [phone] Encounters Date Type Department Care Team Description 12/31/2024 11:30 AM CDT Office Visit [facility] Cardiology [address] [place] [address] Claudio Mittal MD Thoracic aortic ectasia (Primary Dx); Hypercholesteremia; KAYLEY (obstructive sleep apnea); MS (multiple sclerosis) (HCC); Obesity (BMI 30.0-34.9) 12/02/2024 11:45 AM CDT Office Visit [facility] [address] [place] [id number] Regla Mattson MD Routine gynecological examination (Primary Dx) 11/25/2024 Telephone [facility] Cardiology [address] [place] [address] Claudio Mittal MD from Last 3 Months Allergies Active Allergy Reactions Criticality Noted Date Comments Atorvastatin Anaphylaxis High 10/22/2022 Azelastine Shortness of breath High 08/07/2023 Glatiramer Anaphylaxis,Edema High Fluticasone Other (See comments) Low 07/23/2022 Fluticasone Furoate Shortness of breath High 12/02/ 025 Glatiramer (Copolymer 1) Anaphylaxis,Other (See comments),Shortness [...] on file Legal Sex Female 11:27 PM SUPERVISOR UNDERWRITING 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 Bx [facility] Comment:NONE GIVEN SOURCE: [facility] Comment:Cervix, Endocervix Pap, specimen adequacy [facility] Comment:SATISFACTORY FOR YOEL LUATION HPV interp [facility] Comment: Cytology Results: Negative for intraepithelial lesion or malignancy. Atrophic pattern; predominantly parabasal cells COMMENTS [facility] [place] Comment: This Pap test has been evaluated with computer assisted technology. Boiler Welder [facility] [place] [place] Comment: FXL, CT(ASCP) CT screening location: [facility] [place], [address] [place] [address] [address], [place] [address] Pulp Mill Supervisor: TUCKER VELAZQUEZ MD, CLIA: [id number] Comment [facility] [place] [place] Comment: EXPLANATORY NOTE: The Pap is a [...] ORDERABLES F inal Result [facility] [place] [address], [place] [address] * Screening Mammogram Bilateral W Nuzhat (03/26/2022) Anatomical Region Laterality Modality Breast Bilateral Mammography Historical Provider IMG MAMMO PROCEDURES Chika l Result from Last 3 Months or Most Recently Relevant to Health Maintenance Insurance [facility] MEDICARE ADVANTAGE [facility]IC[facility] Address: [address] [address] [place] [address] [facility] ADVANTAGE CHOICE PPO [employer] ADVANTAGE CHOICE PPO Care Teams Municipal Clerk Relationship Specialty Start Date End Date Guy Cast MD PCP - General Family Practice 07/25/20 [place] [address] [place] [address] Consulting Physician Obstetrics and Gynecology 11/25/21
--- OUTSIDE RECORDS SUMMARY | 2025-02-24 08:40 | XMS_ITS | Encounter Summary ---
Author Organization [facility] Address [address] [place] [address] Care Team Providers Care Inker Name Role Phone Guy Cast MD Primary Care Provider Encounter Details Date Type Department Care Team (Late st Contact Info) Description 05/25/2002 Outpatient Historical [facility] [address] [facility] [address] [place] [address] Diomedes Gleason Social History Tobacco Use Types Packs/Day Years Used Date Smoking Tobacco: Never Assessed Comments Unknown Sex and Gender Information Value Date Recorded Sex Assigned at Not on file Legal Sex Female 4:16 AM MARKETING OPERATIONS COORDINATOR Gender Identity Not on file Sexual Orientation Not on file documented as of this encounter Plan of Treatment Upcoming Encounters Date Type Department Care Team (Late st Contact Info) Description 11/01/2025 2:00 PM MARKETING OPERATIONS COORDINATOR Office Visit [facility] Neurology [address] [place] [address] Moe Alvarado MD [address] [place] [address] documented as of this encounter Visit Diagnoses Not on filedocumented in this encounter Care Teams Inker Relationship Specialty Start Date End Date Guy Cast MD [address] [place] [id number] PCP - General Family Practice 07/23/22 documented as of this encounter
[2025-02-24 09:15] LABS: Estimated Glomerular Filt Rate > 60
== END 2025-02-24 08:28 | disposition home or self-care (01) ==
PROVIDERS: PCP Family Medicine; Visit Provider Otolaryngology
DX: R22.1 Localized swelling, mass and lump, neck (principal); I71.40 Abdominal aortic aneurysm, without rupture, unspecified
CPT/HCPCS: 70491; Q9967

== ENCOUNTER 2025-06-14 08:42 | Outpatient (CLI) | payer OTHER, SELFPAY ==
--- OUTSIDE RECORDS SUMMARY | 2024-02-21 16:30 | XMS_ITS ---
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 Name Role Phone Guy Cast Primary Care Provider Un available Elder Nicole Unavailable [phone] [facility], Provider Unavailable Unavailab le Allergies Allergen (clinical drug ingredient) Drug/Non Drug Allergy documented on EMR Reaction Allergy Type Onset Date Status azelastine Azelastine HCl shortness of breath Drug Allergy Active fluticasone Flonase Sensimist shortness of breath Drug Allergy Active penicillin V Penicillin V Potassium angioedema Drug Allergy Active atorvastatin Atorvastatin shortness of breath Drug Allergy [facility] Encounter Medications Medication SIG (Take, Route, Frequency, Duration) Notes Start Date End Date Status Nasacort Allergy 24HR 55 MCG/ACT 1 spray(s) in each nostril once a day Active Opcon-A 0.027%-0.315% DIRECTED *Please review and pick correct strength-formulat ion from MyRefers options. If intended option is not shown, discontinue and re-order from Quick Search* Active Ipratropium [place] 21 MCG/INH 2 SPRAY(S) INTRANASALLY 3 TIMES A DAY; Duration: 30 DAYS *Please review and pick correct strength-formulat ion from Spotsetteran options. If intended option is not shown, discontinue and re-order from Quick Search* 08/25/2023 Active Montelukast Sodium 10 MG 1 tab(s) orally once a day PRN Active EpiPen 2-Erik 0.3 MG/0.3ML as directed intramuscularly once; Duration: 30 days Active Omeprazole Magnesium 20 MG 1 tab(s) orally once a day Active Terbinafine HCl 250 MG 1 tab(s) orally once a day Active Metoprolol Succinate ER 25 MG 1 tab(s) orally once a day Active Aspirin 81 MG 1 TAB(S) ORALLY ONCE A DAY *Please review and pick correct strength-formulat ion from MyRefers options. If intended option is not shown, discontinue and re-order from Quick Search* Active Loratadine 10 MG 1 tab(s) orally once a day PRN Active Zinc 50 MG 1 tab(s) orally once a day Active Co Q 10 100 MG 1 cap(s) orally once a day 200MG Active Potassium 99 MG 1 TAB ORALLY ONCE PE R DAY 294MG *Please review and pick correct strength-formulat ion from MyRefers options. If intended option is not shown, discontinue and re-order from Quick Search* Active Multivitamin - 1 po once a day Active OZEMPIC 8 MG/3 ML (2 MG DOSE) DIRECTED SUBCUTANEOUSLY ONCE A WEEK *Please review for potential replacement for e-prescription and drug interaction check* Active Vitamin D3 50 MCG 1 TAB(S) ORALLY ONCE A DAY *Please review and pick correct strength-formulat ion from MyRefers options. If intended option is not shown, discontinue and re-order from Quick Search* Active Albuterol Sulfate HFA 108 (90 Base) MCG/ACT 2 puff(s) inhaled every 6 hours Active Encounters Encounter Location Date Provider Diagnosis [address] [address] 02/21/2024 Provider [facility]Migration Allergic rhinitis due to pollen J30.1 ; Shortness of breath R06.02 and Localized swelling, mass and lump, head R22.0 Assessments Encounter Date Diagnosis (ICD Code) Assessment Notes Treatment Notes Treatment Clinical Notes Section Notes 02/21/2024 Allergic rhinitis due to pollen (ICD-10 - J30.1) 02/21/2024 Shortness of breath (ICD-10 - R06.02) 02/21/2024 Localized swelling, mass and lump, head (ICD-10 - R22.0) Plan Of Treatment Medication Medication Name Sig Start Date Stop Date Notes Nasacort Allergy 24HR 55 MCG/ACT 1 spray(s) in each nostril once a day Opcon-A 0.027%-0.315% DIRECTED *Please review a nd pick correct strength-formulation from Barcodingspan options. If intended option is not shown, discontinue and re-order from Quick Search* Ipratropium [place] 21 MCG/INH 2 SPRAY(S) INTRANASALLY 3 TIMES A DAY; Duration: 30 DAYS 08/25/2023 *Please review and pick correct strength-formulation from Barcodingspan options. If intended option is not shown, discontinue and re-order from Quick Search* Montelukast Sodium 10 MG 1 tab(s) orally once a day PRN EpiPen 2-Erik 0.3 MG/0.3ML as directed intramuscularly once; Duration: 30 days Albuterol Sulfate HFA 108 (90 Base) MCG/ACT 2 puff(s) inhaled every 6 hours Progress Notes * Colin PAYANOB:1955 (69 yo F)Acc No.[id number]:02/21/2024 Patient: Robert Jamila BOWLES Provider: Robert Gallo :1955 A ge:68 Y S ex:Female Date:02/21/2024 Address:[address] [place] [address] [address], [place] , [id number] Pcp:Guy Cast Subjective: * Chief Complaints: * [facility] . [facility] * Medical History: * Medications: T aking Vitamin D3 50 MCG TABLET 1 TAB(S) ORALLY ONCE A DAY , Notes to Pharmacist: *Please review and pick correct strength-formulation from Barcodingspan options. If intended option is not shown, discontinue and re-order from Quick Search*, Taking Zinc 50 MG Tablet 1 tab(s) orally once a day , Taking Co Q 10 100 MG Capsule 1 cap(s) orally once a day , Notes to Pharmacist: 200MG, Taking Potassium 99 MG TAB 1 TAB ORALLY ONCE PER DAY , Notes to Pharmacist: 294MG *Please review and pick correct strength-formulation from Barcodingspan options. If intended option is not shown, discontinue and re-order from Quick Search*, Taking Multivitamin - Tablet 1 po once a day , Taking OZEMPIC 8 MG/3 ML (2 MG DOSE) SOLUTION DIRECTED SUBCUTANEOUSLY ONCE A WEEK , Notes to Pharmacist: *Please review for potential replacement for e-prescription and drug interaction check*, Taking Omeprazole Magnesium 20 MG Tablet Delayed Release 1 tab(s) orally once a day , Taking Terbinafine HCl 250 MG Tablet 1 tab(s) orally once a day , Taking Metoprolol Succinate ER 25 MG Tablet Extended Release 24 Hour 1 tab(s) orally once a day , Taking Aspirin 81 MG TABLET 1 TAB(S) ORALLY ONCE A DAY , Notes to Pharmacist: *Please review and pick correct strength-formulation from Spotsetteran options. If intended option is not shown, discontinue and re-order from Quick Search*, Taking Loratadine 10 MG Tablet 1 tab(s) orally once a day , Notes to Pharmacist: PRN * Allergies: A torvastatin: shortness of breath, Penicillin V Potassium: angioedema, Flonase Sensimist: shortness of breath, Azelastine HCl: shortness of breath. Objective: * Vitals: Assessment: * Assessment: 1. A llergic rhinitis due to pollen - J30.1 (Primary) 2 . S hortness of breath - R06.02 3 . L ocalized swelling, mass and lump, head - R22.0 ? Plan: * Treatment: 2. S hortness of breath Continue Albuterol Sulfate HFA Aerosol Solution, 108 (90 Base) MCG/ACT, 2 puff(s), inhaled, every 6 hours. 3. L ocalized swelling, mass and lump, head Continue EpiPen 2-Erik Solution Auto-injector, 0.3 MG/0.3ML, as directed, intramuscularly, once, 30 days, 1, Refills 0. 4. O thers Start Ipratropium [place] SPRAY, 21 MCG/INH, 2 SPRAY(S), INTRANASALLY, 3 TIMES A DAY, 30 DAYS, 1, Refills 1, Notes to Pharmacist: *Please review and pick correct strength-formulation from MyRefers options. If intended option is not shown, discontinue and re-order from Quick Search*. * Billing Information: * Visit Code: * Procedure Codes: * Electronic signature of Germán FaithZ-Migration on 06/14/2025 at 08:55 AM CDT Sign off status: Pending * Provider: Robert chapa Migration Date: 0 02/21/2024 Generated for Silke santos/Reji/Gisela on: 1 08:55 AM CDT
--- NOTE | ~2025-06-14 | CT_ITS ---
Exam: CT chest without contrast Clinical History: [Thoracic aortic ectasia ] Comparison: [ Chest CT 05/03/2024] Technique: Multiple axial CT images of the chest without with IV contrast. Sagittal and coronal reformatted images were obtained. FINDINGS: Lungs and pleura: [ Visualized tracheobronchial tree is patent. There are few small bandlike and reticular opacities in the lower lungs likely atelectasis or scarring. No pneumothorax. No pleural effusion. No pulmonary mass.] Mediastinum and pulmonary ginny: [ No mass or adenopathy.] Axillary/intramammary and supraclavicular: [ No mass or adenopathy.] Heart and great vessels: [ Normal heart size.[ [ No pericardial effusion.] Coronary artery calcifications identified. Grossly stable size and configuration of the thoracic aorta as compared to the study from 05/03/2024. Thyroid gland: Heterogeneous, unchanged. Upper Abdomen: Stable 1.8 cm right adrenal nodule. Osseous structures: [ No acute fracture lesion.] [ Multilevel degenerative change in the visualized spine.] Cervical hardware is noted. Dextroconvex curvature of the thoracic spine. Additional findings: [ None of significance.] IMPRESSION: 1. Grossly stable size and configuration of the thoracic aorta as compared to the study from 05/03/2024. 2. No acute process in the chest Reviewed, dictated and finalized at location Q. IMPRESSION: 1. Grossly stable size and configuration of the thoracic aorta as compared to t he study from 05/03/2024. 2. No acute process in the chest
--- OUTSIDE RECORDS SUMMARY | 2025-06-14 08:57 | XMS_ITS | Encounter Summary ---
Author Organization [facility] Address 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
--- OUTSIDE RECORDS SUMMARY | 2025-06-14 08:57 | XMS_ITS | Clinical Summary ---
Author Organization [facility] Address [facility] [place] [address] Care Team Providers Care Log Washer Name Role Phone Guy Cast MD Primary Care Provider Regla Mattson MD Unavailable [phone] Allergies Active Allergy Reactions Criticality Noted Date [...] Tree And Shrub Pollen Unknown 12/02/2024 Medications cholecalcifero l (VITAMIN D3) 400 unit capsule take 1 by Oral route once 0 0 015 Active zinc gluconate 30 mg tablet Take 30 mg by mouth daily Active aspirin 81 mg enteric coated tabletIndicati ons:Thoracic aortic ectasia Take 1 tablet (81 mg total) by mouth daily 30 tablet 11 021 Active POTASSIUM CHLORIDE ORAL Take by mouth OTC not script Active terbinafine (LamiSIL) 250 mg tablet Take 1 tablet (250 mg total) by mouth daily 021 Active albuterol HFA (PROVENTIL HFA,VENTOLIN HFA,PROAIR HFA) 90 mcg/actuation inhaler INHALE 1 TO 2 PUFFS BY MOUTH EVERY 4 TO 6 HOURS NEEDED FOR SHORTNESS OF BREATH OR WHEEZING 022 Active multivitamin capsule Take 1 capsule by mouth Active omeprazole 20 mg tablet,delayed release (DR/EC) 019 Active Lactobacillus acidophilus 10 billion cell capsule Take 1 capsule by mouth daily Active evolocumab (Repatha SureClick) 140 mg/mL pen injector Inject 1 mL (140 mg total) under the skin every 14 (fourteen) days 2 mL 11 024 Active Zepbound 5 mg/0.5 mL pen injector INJECT 5MG SUBCUTANEOUSLY ONCE WEEKLY 025 Active loratadine (CLARITIN) 10 mg tablet 1 tablet (10 mg total) as needed Active triamcinolone (Nasacort) 55 mcg nasal inhaler 2 sprays as needed Active diphenhydrAMIN E 25 mg capsule Take 1 tablet/capsule (25 mg total) by mouth every 6 (six) hours as needed for itching Active famotidine (PEPCID) 20 mg tablet Take 1 tablet (20 mg total) by mouth 2 (two) times a day Active VITAMIN E ACETATE ORAL Take 180 mg by mouth Active turmeric root extract 500 mg capsule Take by mouth Active metoprolol XL (TOPROL-XL) 25 mg extended release tabletIndicati ons:Thoracic aortic ectasia Take 1 tablet by mouth once daily 270 tablet 025 Active metoprolol XL (TOPROL-XL) 25 mg extended release tabletIndicati ons:Thoracic aortic ectasia TAKE 1 TABLET(25 MG) BY MOUTH DAILY 90 tablet 3 024 2024 Discontinued Active Problems Problem Noted Date Diagnosed Date [...] Encounters Date Type Department Care Team Description 05/03/2025 2:10 PM CDT - 05/03/2025 11:59 PM CDT Hospital Encounter [facility] Ultrasound [address] [place] [address] Nontoxic single thyroid nodule Discharge Disposition: Discharge to home or self care from Last 3 Months Surgical History Surgery Date Site/Laterality Comments TUBAL LIGATION 09/08/1989 - 09/07/1990 Medical History Medical History Date Comments Crush injury Right hip fracture (CMS/HCC) (HCC) MS (multiple sclerosis) Bladder dysfunction Thoracic aortic ectasia Rib fractures [...] on file 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 Gender Identity Not on file Sexual Orientation [...] Screening 1974 Pneumococcal vaccine 65+ (1 of 2 - PCV) 12/20/1975 Zoster Vaccine (1 of 2) 2006 Breast Cancer Screening-Mammogram 03/26/2023 022 Influenza Vaccine (#1) 2025 Well Visit 65+ 12/02/2025 12/02/2024, 11/26/2021 Medical Devices Implanted Type Area Front Facer Device Identifier Shelf Expiration Date Model / Serial / Lot Hardware Spine Cervical Hardware Mandible Hardware Right: Toes Procedures Procedure Name Priority Date/Time Associated Diagnosis Comments US THYROID Schedule Routine, Read Routine (OP Routine) 05/03/2025 3:25 PM CDT Nontoxic single thyroid nodule SCREENING MAMMOGRAM BILATERAL W NUZHAT Schedule Routine, Read Routine (OP Routine) 03/26/2022 from Last 3 Months or Most Recently Relevant to Health Maintenance Results * US Thyroid (05/03/2025 3:25 PM CDT) Anatomical Region Laterality Modality Head and Neck N/A Ultrasound 05/17/2025 6:47 AM CDT Narrative 05/17/2025 6:50 AM CDT EXAM DESCRIPTION: US THYROID REASON FOR STUDY: NONTOXIC SINGLE THYROID NODULE TECHNIQUE: Ultrasound of the thyroid was performed with grayscale and color doppler. COMPARISON: None available FINDINGS: RIGHT: The right thyroid lobe measures 5.1 x 2.0 x 1.7 cm. Lower pole demonstrates a lesion measuring 1.6 x 1.6 x 1.5 cm. This lesion is wider than tall, with ill-defined margins, solid-2 points, isoechoic-1 point and without calcification. TI-RADS 3. Continued follow-up suggested per guidelines below. LEFT: The left thyroid lobe measures 4.3 x 1.3 x 1.2 cm. The left thyroid lobe is normal in echotexture. ISTHMUS: The isthmus measures 0.19 cm in AP dimension. The isthmus is normal in echotexture. VASCULARITY: Normal. OTHER: Nonenlarged lymph nodes with normal morphologic appearance both neck regions IMPRESSION: 1. Right lobe of thyroid demonstrates a 1.6 cm nodule. Continued follow-up suggested per guidelines below. 2. ACR Risk Category: 3. REFERENCE: According to the ACR Thyroid Imaging, Reporting and Data System (TI-RADS): White Paper of the ACR TI-RADS Committee Jan, 2017 recommendations regarding the management of thyroid nodules are as follows: 1. TI-RADS 1: Risk of malignancy <2%, no FNA or follow up required. 2. TI-RADS 2: Risk of malignancy <2%, no FNA or follow up required. 3. TI-RADS 3: Risk of malignancy 2%-5%. Nodules 1.5 cm or greater follow up at 1, 3 and 5 years recommended, for nodules 2.5 cm or greater FNA recommended. 4. TI-RADS 4: Risk of malignancy 5%-20% Nodules 1.0 cm or greater follow up at 1, 2, 3 and 5 years recommended, for nodules 1.5 cm or greater FNA recommended 5. TI-RADS 5: Risk of malignancy >20%. Nodules 0.5 cm or greater annual follow up for 5 years recommended, for nodules 1.0 cm or greater FNA recommended. The ACT TI-RADS committee recommends targeting no more than two nodules for FNA. If three or more nodules meet criteria for FNA, the two with the most suspicious appearance based on ACR TI-RADS points should be sampled. THIS IS AN ELECTRONICALLY VERIFIED FINAL REPORT 05/17/2025 6:50 AM - Electronically signed by Mason Bruno M.D. RB: ANJANA Report ID: [id number] Reading Location: [id number] Procedure Note Mason Bruno MD - 05/17/2025 EXAM DESCRIPTION: US THYROID REASON FOR STUDY: NONTOXIC SINGLE THYROID NODULE TECHNIQUE: Ultrasound of the thyroid was performed with grayscale andcolor doppler. COMPARISON: None available FINDINGS: RIGHT: The right thyroid lobe measures 5.1 x 2.0 x 1.7 cm. Lower pole demonstrates a lesion measuring 1.6 x 1.6 x 1.5 cm. Thislesion is wider than tall, with ill-defined margins, solid-2 points, isoechoic-1point and without calcification. TI-RADS 3. Continued follow-up suggested per guidelines below. LEFT: The left thyroid lobe measures 4.3 x 1.3 x 1.2 cm. The leftthyroid lobe is normal in echotexture. ISTHMUS: The isthmus measures 0.19 cm in AP dimension. The isthmus is normal in echotexture. VASCULARITY: Normal. OTHER: Nonenlarged lymph nodes with normal morphologic appearance bothneck regions IMPRESSION: 1. Right lobe of thyroid demonstrates a 1.6 cm nodule. Continuedfollow-up suggested per guidelines below. 2. ACR Risk Category: 3. REFERENCE: According to the ACR Thyroid Imaging, Reporting and Data System (TI-RADS): White Paper of the ACR TI-RADS Committee Jan, 2017recommendations regarding the management of thyroid nodules are as follows: 1. TI-RADS 1: Risk of malignancy <2%, no FNA or follow up required. 2. TI-RADS 2: Risk of malignancy <2%, no FNA or follow up required. 3. TI-RADS 3: Risk of malignancy 2%-5%. Nodules 1.5 cm or greater followup at 1, 3 and 5 years recommended, for nodules 2.5 cm or greater FNArecommended. 4. TI-RADS 4: Risk of malignancy 5%-20% Nodules 1.0 cm or greater followup at 1, 2, 3 and 5 years recommended, for nodules 1.5 cm or greater FNA recommended 5. TI-RADS 5: Risk of malignancy >20%. Nodules 0.5 cm or greater annual follow up for 5 years recommended, for nodules 1.0 cm or greater FNA recommended. The ACT TI-RADS committee recommends targeting no more than two nodulesfor FNA. If three or more nodules meet criteria for FNA, the two with themost suspicious appearance based on ACR TI-RADS points should be sampled. THIS IS AN ELECTRONICALLY VERIFIED FINAL REPORT 05/17/2025 6:50 AM - Electronically signed by Mason Bruno M.D. RB: ANJANA Report ID: [id number] Reading Location: [place] [address] [place] Leigha Sharp NP IMG US PROCEDURES Final Resul t * Screening Mammogram Bilateral W Nuzhat (03/26/2022) Anatomical Region Laterality Modality Breast Bilateral Mammography Historical Provider IMG MAMMO PROCEDURES Chika l Result from Last 3 Months or Most Recently Relevant to Health Maintenance Insurance [facility] MEDICARE ADVANTAGE [facility] ADVANTAGE CHOICE PPO [employer] ADVANTAGE CHOICE PPO [employer] ADVANTAGE CHOICE PPO Care Teams Log Washer Relationship Specialty Start Date End Date Guy Cast MD PCP - General Family Practice 07/25/20 [place] [address] [place] [address] Consulting Physician Obstetrics and Gynecology 11/25/21
--- OUTSIDE RECORDS SUMMARY | 2025-06-14 08:57 | XMS_ITS | Encounter Summary ---
Author Organization [facility] Address [address] [place] [address] Care Team Providers Care Direct Customer Service Representative Name Role Phone Guy Cast MD Primary Care Provider Regla Mattson MD Unavailable [phone] Encounter Details Date Type Department Care Team (Late st Contact Info) Description 04/12/2021 Telephone [facility] - Imaging [address] [place] [address] Transcribed Order, Provider Social History Tobacco Use Types Packs/Day Years Used Date Smoking Tobacco: Former Comments Unknown Sex and Gender Information Value Date Recorded Sex Assigned at Not on file 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
--- OUTSIDE RECORDS SUMMARY | 2025-06-14 08:57 | XMS_ITS | Patient Health Record ---
Author Organization [facility] [place] ([address]) Address [address] [place] [address] Care Team Providers Care Equipment Specialist Name Role Phone Skye Castrolandokai Primary Care Provider Un available Elder Nicole Unavailable [phone] Allergies Allergen (clinical drug ingredient) Drug/Non Drug [...] tab(s) orally once a day Active Ipratropium [place] 21 MCG/INH 2 SPRAY(S) INTRANASALLY 3 TIMES A DAY; Duration: 30 DAYS *Please review and pick correct strength-formulat ion from [employer] options. If intended option is not shown, discontinue and re-order from Quick Search* 08/25/2023 Active Vitamin D3 50 MCG 1 TAB(S) ORALLY ONCE A DAY *Please review and pick correct strength-formulat ion from [employer] options. If intended option is not shown, [...] EPIPEN 2-ERIK 0.3 mg as directed intramuscularly once; Duration: 30 days Active METOPROLOL SUCCINATE ER 25 mg 1 tab(s) orally once a day Active Aspirin 81 MG 1 TAB(S) ORALLY ONCE A DAY *Please review and pick correct strength-formulat ion from [employer] options. If intended option is not shown, discontinue and re-order from Quick Search* Active Nasacort Allergy 24HR 55 MCG/ACT 1 spray(s) in each nostril once a day Active Loratadine 10 MG 1 tab(s) orally once a day PRN Active Opcon-A 0.027%-0.315% DIRECTED *Please review and pick correct strength-formulat ion from [employer] options. If intended option is not shown, discontinue and re-order from Quick Search* Active Albuterol Sulfate HFA 108 (90 Base) MCG/ACT 2 puff(s) inhaled every 6 hours Active Montelukast Sodium 10 MG 1 tab(s) orally once a day PRN Active EpiPen 2-Erik 0.3 MG/0.3ML as directed intramuscularly once; Duration: 30 days Active Potassium 99 MG 1 TAB ORALLY ONCE PE R DAY 294MG *Please review and pick correct strength-formulat ion from [employer] options. If intended option is not shown, [...] mcg/inh 2 spray(s) intranasally 3 times a day; Duration: 30 days 08/25/2023 Active LORATADINE 10 mg [...] Status Risk Notes Problem Shortness of breath (989057005) Shortness of breath (R06.02) Active confirmed Problem Allergy to penicillin (97720489) Allergy status to penicillin (Z88.0) Active confirmed Problem Multiple sclerosis (51213156) Multiple sclerosis (G35) Active confirmed Problem Sleep apnea (83593952) Sleep apnea, unspecified (G47.30) Active confirmed Problem Aortic aneurysm (85456879) Aortic aneurysm of unspecified site, without rupture (I71.9) Active confirmed Problem Allergic rhinitis caused by pollen (disorder) (47620870) Allergic rhinitis due to pollen (J30.1) Active confirmed Problem Allergic rhinitis (94694694) Other allergic rhinitis (J30.89) Active confirmed Problem Dysphagia (81902585) Dysphagia, unspecified (R13.10) Active confirmed Plan Of Treatment No Information Insurance Providers Payer Name Payer Address Payer Phone Subscriber Number Group Number Insured Name Patient Relationship to Insured Coverage Start Date Coverage End Date [employer] [address] [address] [place] [address] [id number] Jamila Monzon Self - patient is the [...]
--- OUTSIDE RECORDS SUMMARY | 2025-06-14 08:57 | XMS_ITS | Encounter Summary ---
Author Organization [facility] Address [address] [place] [address] Care Team Providers Care Manufacturing Quality Manager Name Role Phone Guy Cast MD Primary Care Provider Regla Mattson MD Unavailable Encounter Details Date Type Department Care Team (Late st Contact Info) Description 10/05/2024 Telephone [facility] [address] [place] [address] Monie Garcia Social History Tobacco Use Types Packs/Day Years Used Date Smoking Tobacco: Former Cigarettes Passive Smoke Exposure: Past Smokeless Tobacco: Never Comments No Sex and Gender Information Value Date Recorded Sex Assigned at Not on file 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
--- OUTSIDE RECORDS SUMMARY | 2025-06-14 08:57 | XMS_ITS | Encounter Summary ---
Author Organization [facility] Address [address] [place] [address] Care Team Providers Care Software Developer Name Role Phone Guy Cast MD Primary Care Provider Encounter Details Date Type Department Care Team (Late st Contact Info) Description 06/22/2002 Outpatient Historical [facility] [address] [facility] [address] [place] [address] Diomedes Gleason Social History Tobacco Use Types Packs/Day Years Used Date Smoking Tobacco: Never Assessed Comments Unknown Sex and Gender Information Value Date Recorded Sex Assigned at Not on file 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
--- OUTSIDE RECORDS SUMMARY | 2025-06-14 08:57 | XMS_ITS | Clinical Summary ---
Author Organization [facility] Address [address] [place] [address] Care Team Providers Care Sander Machine Name Role Phone Guy Cast MD Primary [...] mg by subcutaneous injection every 2 weeks. 5 Active famotidine (PEPCID) 20 mg tablet Take 20 mg by mouth 2 times daily. Active Zepbound 10 mg/0.5 mL Pen Injector Inject 10 mg by subcutaneous injection every 7 days. 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 Gender Identity Not on file Sexual Orientation [...] 01/27/2025 2:09 PM CDT Plan of Treatment Health Maintenance Due Date Last Done Comments Pre-Diabetes and Diabetes Screening 1956 DTAP/TDAP/TD VACCINES (1 - Tdap) 12/20/1975 COLORECTAL SCREENING 2001 Colorectal Cancer Screening 2001 FIT-DNA Q 3 years 2001 FIT/FOBT Q 1 year 2001 Flex Sig/CT Colonography Q 5 years 2001 PNEUMOCOCCAL VACCINE 50+ YEA RS (1 of 1 - PCV) 2006 ZOSTER VACCINE (1 of 2) 2006 RSV VACCINE (60+ or ) (1 - Risk 60-74 years 1-dose series) 2016 OSTEOPOROSIS SCREENING 2021 BREAST CANCER SCREENING 03/26/2023 03/26/2022 INFLUENZA VACCINE (#1) 2025 Medicare [place] ([place]) Prev entative Visit/Annual Wellness Visit Completed 12/02/2024, 11/26/2021 Insurance [employer] PPO MCR Care Teams Sander Machine Relationship Specialty Start Date End Date Guy Cast MD [address] [place] [address] PCP - General Family Practice 07/23/22
--- OUTSIDE RECORDS SUMMARY | 2025-06-14 08:57 | XMS_ITS | Clinical Summary ---
Author Organization [facility] Address [address] [place] [address] Care Team Providers Care Tawer Name Role Phone Guy Cast MD Primary Care Provider Source Comments [facility],non-owned Affiliates and Associated Physician Practices is amultiple site organization consisting of ambulatory clinics and hospital sitesin [place], [place], [place] and [place]. This disclosure is being madepursuant to the Care Everywhere program and may not contain all information available regarding this patient. Last updated 18.[facility] Allergies Active Allergy Reactions Criticality Noted [...] tablet by mouth daily with food Active [id number] T C-VIT D PO Take by mouth. 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
--- OUTSIDE RECORDS SUMMARY | 2025-06-14 08:57 | XMS_ITS | Encounter Summary ---
Author Organization [employer] Address 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
== END 2025-06-14 08:43 | disposition home or self-care (01) ==
PROVIDERS: PCP Family Medicine; Visit Provider Internal Medicine Cardiovascular Disease
DX: I77.810 Thoracic aortic ectasia (principal)
CPT/HCPCS: 71250

== ENCOUNTER 2025-06-30 14:41 | Outpatient (CLI) | payer OTHER, SELFPAY ==
--- OUTSIDE RECORDS SUMMARY | 2024-02-21 16:30 | XMS_ITS ---
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 Name Role Phone Guy Cast Primary Care Provider Un available Elder Nicole Unavailable [phone] [facility], Provider Unavailable Unavailab le Allergies Allergen (clinical drug ingredient) Drug/Non Drug Allergy documented on EMR Reaction Allergy Type Onset Date Status azelastine Azelastine HCl shortness of breath Drug Allergy Active fluticasone Flonase Sensimist shortness of breath Drug Allergy Active penicillin V Penicillin V Potassium angioedema Drug Allergy Active atorvastatin Atorvastatin shortness of breath Drug Allergy Active [facility] Encounter Medications Medication SIG (Take, Route, Frequency, Duration) Notes Start Date End Date Status Nasacort Allergy 24HR 55 MCG/ACT 1 spray(s) in each nostril once a day Active Opcon-A 0.027%-0.315% DIRECTED *Please review and pick correct strength-formulat ion from [employer] options. If intended option is not shown, discontinue and re-order from Quick Search* Active Ipratropium Stevenson 21 MCG/INH 2 SPRAY(S) INTRANASALLY 3 TIMES A DAY; Duration: 30 DAYS *Please review and pick correct strength-formulat ion from [employer] options. If intended option is not shown, [...] review and pick correct strength-formulat ion from [employer] options. If intended option is not shown, [...] review and pick correct strength-formulat ion from [employer] options. If intended option is not shown, [...] review and pick correct strength-formulat ion from [employer] options. If intended option is not shown, discontinue and re-order from Quick Search* Active Albuterol Sulfate HFA 108 (90 Base) MCG/ACT 2 puff(s) inhaled every 6 hours Active Encounters Encounter Location Date Provider Diagnosis [address] [address] 02/21/2024 Provider [facility]Migration Allergic rhinitis due to [...] review a nd pick correct strength-formulation from [employer] options. If intended option is not shown, discontinue and re-order from Quick Search* Ipratropium Stevenson 21 MCG/INH 2 SPRAY(S) INTRANASALLY 3 TIMES A DAY; Duration: 30 DAYS 08/25/2023 *Please review and pick correct strength-formulation from [employer] options. If intended option is not shown, discontinue and re-order from Quick Search* Montelukast Sodium 10 MG 1 tab(s) orally once a day PRN EpiPen 2-Erik 0.3 MG/0.3ML as directed intramuscularly once; Duration: 30 days Albuterol Sulfate HFA 108 (90 Base) MCG/ACT 2 puff(s) inhaled every 6 hours Progress Notes * Colin PAYANOB:1955 (69 yo F)Acc No.[id number]:02/21/2024 Patient: Robetr Jamila BOWLES Provider: Robert Gallo :1955 A ge:68 Y S ex:Female Date:02/21/2024 Address:[address] [place] [address] [address], [address] , [id number] Pcp:Guy Cast Subjective: * Chief Complaints: * [facility] . [facility] * Medical History: * Medications: T aking Vitamin D3 50 MCG TABLET 1 TAB(S) ORALLY ONCE A DAY , Notes to Pharmacist: *Please review and pick correct strength-formulation from [employer] options. If intended option is not shown, [...] *Please review and pick correct strength-formulation from [employer] options. If intended option is not shown, [...] *Please review and pick correct strength-formulation from [employer] options. If intended option is not shown, [...] Refills 0. 4. O thers Start Ipratropium Stevenson SPRAY, 21 MCG/INH, 2 SPRAY(S), INTRANASALLY, 3 TIMES A DAY, 30 DAYS, 1, Refills 1, Notes to Pharmacist: *Please review and pick correct strength-formulation from [employer] options. If intended option is not shown, discontinue and re-order from Quick Search*. * Billing Information: * Visit Code: * Procedure Codes: * Electronic signature of Germán FaithZ-Migration on 06/30/2025 at 03:49 PM CDT Sign off status: Pending * Provider: Robert chapa Migration Date: 0 02/21/2024 Generated for Silke santos/Reji/Gisela on: 1 03:49 PM CDT
[2025-06-30 15:09] LABS: Hematocrit 45.0 % (37.0-47.0); Hemoglobin 14.5 g/dL (12.0-15.0); Immature Granulocyte Percent A 0.3 % (0-0.5); Lymphocytes Absolute Auto 3.04 K/mm3 (0.9-3.2); Mean Corpuscular HGB Conc 32.2 g/dl (32-36); Mean Corpuscular Hemoglobin 28.9 pg (26-34); Mean Corpuscular Volume 89.8 fl (80-100); Nucleated Red Blood Cells Absolute Auto 0.000 K/mm3 (0.0-0.012); Nucleated Red Blood Cells Perc 0.0 % (0.0-0.2); Platelet Count Result 330 k/mm3 (150-375); Red Blood Count 5.01 M/mm3 (4.2-5.4); White Blood Count 8.9 K/mm3 (4.5-10.0)
[2025-06-30 15:29] LABS: Alanine Aminotransferase 22 U/L (6-35); Albumin Level 4.3 g/dL (3.5-5.1); Alkaline Phosphatase 74 U/L (38-126); Anion Gap 6 mmol/L (4-12); Aspartate Amino Transferase 31 U/L (14-36); Bilirubin,Total 0.3 mg/dL (0.2-1.3); Blood Urea Nitrogen 19 mg/dL (7-17); Calcium 9.7 mg/dL (8.4-10.2); Carbon Dioxide 28 mmol/L (22-30); Chloride 101 mmol/L (98-107); Estimated Glomerular Filt Rate > 60; Glucose 95 mg/dL (65-110); Sodium 135 mmol/L (137-145); Total Protein 7.4 g/dL (6.3-8.2)
[2025-06-30 15:38] LABS: Potassium 4.0 mmol/L (3.4-5.0)
--- OUTSIDE RECORDS SUMMARY | 2025-06-30 15:49 | XMS_ITS | Encounter Summary ---
Author Organization [facility] Address [address] [place] [address] Care Team Providers Care Customer Account Coordinator Name Role Phone Guy Cast MD Primary Care Provider Regla Mattson MD Unavailable Encounter Details Date Type Department Care Team (Late st Contact Info) Description 10/05/2024 Telephone [facility] [address] [place] [address] Monie Garcia Social History Tobacco Use Types Packs/Day Years Used Date Smoking Tobacco: Former Cigarettes Passive Smoke Exposure: Past Smokeless Tobacco: Never Comments No Sex and Gender Information Value Date Recorded Sex Assigned at Not on file 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
--- OUTSIDE RECORDS SUMMARY | 2025-06-30 15:49 | XMS_ITS | Encounter Summary ---
Author Organization [employer] Address 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
--- OUTSIDE RECORDS SUMMARY | 2025-06-30 15:49 | XMS_ITS | Encounter Summary ---
Author Organization [employer] Address 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
--- OUTSIDE RECORDS SUMMARY | 2025-06-30 15:49 | XMS_ITS | Clinical Summary ---
Author Organization [facility] Address [address] [place] [address] Care Team Providers Care Senior Windows Engineer Name Role Phone Guy Cast MD Primary Care Provider Source Comments [facility],non-owned Affiliates and Associated Physician Practices is amultiple site organization consisting of ambulatory clinics and hospital sitesin [place], [place], [place] and [place]. This disclosure is being madepursuant to the Care Everywhere program and may not contain all information available regarding this patient. Last updated 18.[facility] Allergies Active Allergy Reactions Criticality Noted [...] tablet by mouth daily with food Active [id number] T C-VIT D PO Take by mouth. 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 MEDICARE ADV O Advance Directives Documents on File Type Date Recorded Patient Shredder Tender Expl anation Adv Directive/Living Will/POA 04/08/2011 12:02 PM * FULL RESUSCITATION (Latest Code Status on File) Date Activated Date Inactivated Comments 04/03/2011 9:36 PM 04/07/2011 11:05 PM Care Teams Senior Windows Engineer Relationship Specialty Start Date End Date Guy Cast MD [address] [place] [address] PCP - General 06/20/21
--- OUTSIDE RECORDS SUMMARY | 2025-06-30 15:49 | XMS_ITS | Encounter Summary ---
Author Organization [employer] Address 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
--- OUTSIDE RECORDS SUMMARY | 2025-06-30 15:49 | XMS_ITS | Encounter Summary ---
Author Organization [employer] Address 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
--- OUTSIDE RECORDS SUMMARY | 2025-06-30 15:50 | XMS_ITS | Clinical Summary ---
Author Organization [facility] Address [address] [place] [address] Care Team Providers Care Water Purification Chemist Name Role Phone Guy Cast MD Primary Care Provider Regla Mattson MD Unavailable [phone] Allergies Active Allergy Reactions Criticality Noted Date [...] mg extended release tabletIndicatio ns:Thoracic aortic ectasia Take 1 tablet by mouth once daily 270 tablet 05/24/20 25 Active Active Problems Problem Noted Date Diagnosed [...] Encounters Date Type Department Care Team Description 06/17/2025 Telephone [facility] Medical [facility] Cardiology [address] [place] [address] Claudio Mittal MD 06/16/2025 Orders Only [facility] Medical [facility] Cardiology [address] [place] [address] Claudio Mittal MD Thoracic aortic ectasia 05/03/2025 2:10 PM CDT - 05/03/2025 11:59 PM CDT Hospital Encounter [facility] Ultrasound [address] [place] [address] Nontoxic single thyroid nodule Discharge Disposition: Discharge [...] Worley Hypertensio n; Relation Name Status Comments Brothrian Schumacher Father Biju Schumacher(cancer) Mother Elvira Worley Social History Tobacco Use Types Packs/Day Years Used Date Smoking Tobacco: Former Cigarettes 1 10 Passive Smoke Exposure: Past Smokeless Tobacco: Never Tobacco Cessation:Counseling Given: Not Answered Comments No Sex and Gender Information Value Date Recorded Sex Assigned at Not on file 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 RB: ANJANA Report ID: [id number] Reading Location: [place] [address] Procedure Note Mason Bruno MD - 05/17/2025 [...] Mason Bruno M.D. RB: ANJANA Report ID: [id number] Reading Location: [place] [address] us Leigha Sharp NP IMG US PROCEDURES Final Resul t * Screening Mammogram Bilateral W Nuz[place] (03/26/2022) Anatomical Region Laterality Modality Breast Bilateral Mammography Historical Provider IMG MAMMO PROCEDURES Chika l Result from Last 3 Months or Most Recently Relevant to Health Maintenance Insurance [facility] MEDICARE ADVANTAGE ESSENCE ADVANTAGE CHOICE PPO [employer]ENCE ADVANTAGE CHOICE PPO [employer] ADVANTAGE CHOICE PPO Care Teams Water Purification Chemist Relationship Specialty Start Date End Date Guy Cast MD PCP - General Family Practice 07/25/20 [place] [address] [place] [address] Consulting Physician Obstetrics and Gynecology 11/25/21
--- OUTSIDE RECORDS SUMMARY | 2025-06-30 15:50 | XMS_ITS | Clinical Summary ---
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
--- OUTSIDE RECORDS SUMMARY | 2025-06-30 15:50 | XMS_ITS | Encounter Summary ---
Author Organization [facility] Address [address] [place] [address] Care Team Providers Care Truck Driver Rubbish Collector Name Role Phone Guy Cast MD Primary Care Provider Regla Mattson MD Unavailable [phone] Encounter Details Date Type Department Care Team (Late st Contact Info) Description 04/12/2021 Telephone [facility] - Imaging [address] [place] [address] Transcribed Order, Provider Social History Tobacco Use Types Packs/Day Years Used Date Smoking Tobacco: Former Comments Unknown Sex and Gender Information Value Date Recorded Sex Assigned at Not on file 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
--- OUTSIDE RECORDS SUMMARY | 2025-06-30 15:50 | XMS_ITS | Patient Health Record ---
Author Organization [facility] [place] ([address]) Address [address] [place] [address] Care Team Providers Care Construction Millwright Name Role Phone Skye Castrolandokai Primary Care Provider Un available Elder Nicole Unavailable [phone] Allergies Allergen (clinical drug ingredient) Drug/Non Drug [...] tab(s) orally once a day Active Ipratropium Copeland 21 MCG/INH 2 SPRAY(S) INTRANASALLY 3 TIMES A DAY; Duration: 30 DAYS *Please review and pick correct strength-formulat ion from [employer] options. If intended option is not shown, discontinue and re-order from Quick Search* 08/25/2023 Active Vitamin D3 50 MCG 1 TAB(S) ORALLY ONCE A DAY *Please review and pick correct strength-formulat ion from [employer] options. If intended option is not shown, [...] review and pick correct strength-formulat ion from [employer] options. If intended option is not shown, discontinue and re-order from Quick Search* Active Nasacort Allergy 24HR 55 MCG/ACT 1 spray(s) in each nostril once a day Active Loratadine 10 MG 1 tab(s) orally once a day PRN Active Opcon-A 0.027%-0.315% DIRECTED *Please review and pick correct strength-formulat ion from [employer] options. If intended option is not shown, [...] review and pick correct strength-formulat ion from [employer] options. If intended option is not shown, [...] Status Risk Notes Problem Shortness of breath (768247731) Shortness of breath (R06.02) Active confirmed Problem Allergy to penicillin (67745879) Allergy status to penicillin (Z88.0) Active confirmed Problem Multiple sclerosis (47034111) Multiple sclerosis (G35) Active confirmed Problem Sleep apnea (86196986) Sleep apnea, unspecified (G47.30) Active confirmed Problem Aortic aneurysm (06867914) Aortic aneurysm of unspecified site, without rupture (I71.9) Active confirmed Problem Allergic rhinitis caused by pollen (disorder) (81697920) Allergic rhinitis due to pollen (J30.1) Active confirmed Problem Allergic rhinitis (11854372) Other allergic rhinitis (J30.89) Active confirmed Problem Dysphagia (99970243) Dysphagia, unspecified (R13.10) Active confirmed Plan Of Treatment No Information Insurance Providers Payer Name Payer Address Payer Phone Subscriber Number Group Number Insured Name Patient Relationship to Insured Coverage Start Date Coverage End Date [employer] Medicare [address] [address] [place] [address] [id number] Jamila Monzon Self - patient is the [...]
--- OUTSIDE RECORDS SUMMARY | 2025-06-30 15:50 | XMS_ITS | Encounter Summary ---
Author Organization [email or web address] Address 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
[2025-06-30 16:05] LABS: Thyroid Stimulating Hormone 1.030 uIU/mL (0.465-4.680)
[2025-06-30 16:48] LABS: Vitamin B12 > 1000.0 pg/mL (239-931)
== END 2025-06-30 14:42 | disposition home or self-care (01) ==
LOC: ANHLAB 14:45
PROVIDERS: PCP Family Medicine; Visit Provider Family Medicine
DX: E04.1 Nontoxic single thyroid nodule (principal); I10 Essential (primary) hypertension; E66.9 Obesity, unspecified; K21.9 Gastro-esophageal reflux disease without esophagitis; K22.70 Barrett's esophagus without dysplasia; G47.33 Obstructive sleep apnea (adult) (pediatric); Z00.00 Encounter for general adult medical examination without abnormal findings; J43.9 Emphysema, unspecified; E78.5 Hyperlipidemia, unspecified
CPT/HCPCS: 36415; 80053; 82607; 84443; 85025